=== PATIENT | female | born 1980 | race Two or more races ===

== ENCOUNTER → 2017-11-29 13:52 | Outpatient (CLI) | payer OTHER, SELFPAY ==
--- NOTE | 2017-11-29 13:58 | XR_ITS ---
XR knee LT 3V, XR tibia fibula LT 2V Ordering Physician: Eugenia Das Patient Age: 37 years: Female HISTORY: ITS.REASON: PAIN , S/P FALLpain left knee left lower leg TECHNIQUE: 3 views left knee 2 views lower leg COMPARISON :None ========= LEFT KNEE 3 views. No fracture nor dislocation. The joint space is slightly narrowed at medial compartment on this nonweightbearing film. A generous sized patella but otherwise satisfactory patellofemoral relationships on this view with no prominent joint effusion. Upper normal joint fluid suprapatella bursa. Bones well mineralized. Mild osseous undulation is seen at proximal shaft of the tibia, medial margin. Most likely insertional point. ======= LEFT LOWER LEG 2 views A no acute fracture. Tibia and fibula shaft appear intact. Current AP and lateral views of the lower leg barely included ankle which is unremarkable. Knee included & unremarkable on this study is well. Again the slight undulation cortical contour is seen at the at the medial, and posterior aspect of the proximal tibial shaft. Benign-appearing feature most likely tiny insertional 'tug lesion irregularity or small developing exostosis. Not of current nor significant concern \ ==== IMPRESSION/SUMMARY: 1. Left knee intact no fracture. No significant joint effusion Borderline narrowing medial compartment. 2. Left Tibia and fibula intact with no acute findings. . No significant appearing findings. Note about
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
== END ==
PROVIDERS: PCP Nurse Practitioner Family; Visit Provider Nurse Practitioner Family
DX: M25.552 Pain in left hip (principal); M25.562 Pain in left knee; M79.605 Pain in left leg
CPT/HCPCS: 73502; 73552; 73562; 73590

== ENCOUNTER 2018-01-20 18:05 | Emergency (ER) | payer OTHER, SELFPAY ==
[2018-01-20 18:06] VITALS: BP 128/82; PULSE 89; RESP 18; TEMP 36.6; O2SAT 93; BMI 34.2
--- NOTE | 2018-01-20 18:14 | HMH.EDMVA ---
ED Disposition Clinical Impression: Chest wall contusion, Lumbar strain, UTI (urinary tract infection), Tetrahydrocannabinol (THC) use disorder, mild, abuse, Drug use Disposition: Home, Self-Care Condition on Discharge: Fair Additional Instructions: 1- rest. 2- stop smoking. 3- observe for hemoptysis or soa to return to the Ed for a recheck. 4- motrin and flexeril. 5- folow up with pcp in am on final x ray reports. Prescriptions: Ibuprofen [Motrin 600mg Tablet] 600 mg PO Q8HP PRN #21 tab PRN Reason: Moderate To Severe Pain Amoxicillin [Amoxicillin 500mg Cap] 500 mg PO TID #21 cap Cyclobenzaprine HCl [Flexeril 10mg tablet] 10 mg PO BID 30 Days #60 tab Referrals: Ranjan Maldonado MD [Primary Care Provider] - - Critical Care Critical Care Time: No Attestation: On , the high probability of a clinically significant, sudden or life threatening deterioration of the following system(s) required my full and direct attention, intervention and personal management. The time I documented below is in addition to time spent performing reported procedures but includes the following listed in this critical care notation. Medical Decision Making Vital Signs: 01/20/18 18:06 Temperature 97.9 F Temperature Source Oral Pulse Rate [Right Brachial] 89 Respiratory Rate 18 Blood Pressure [Right Arm] 128/82 Blood Pressure Mean [Right Arm] 97 Blood Pressure Source [Right Arm] Automatic Cuff Blood Pressure Position [Right Arm] Supine 02 Sat by Pulse Oximetry 93 L Oxygen Delivery Method Room Air - Lab Data Lab Results 01/20/18 19:02: Urine Color Yellow, Urine Appearance Cloudy, Urine pH 5.5, Ur Specific [place] 1.015, Urine Protein Negative, Urine Glucose (UA) Negative, Urine Ketones Negative, Urine Blood Trace-l, Urine Nitrate Negative, Urine Bilirubin Negative, Urine Urobilinogen 0.2, Ur Leukocyte Esterase 1+ A, Urine RBC 3-5, Urine WBC 3-5, Ur Squamous Epith Cells 50-100, Urine Bacteria 1+ 01/20/18 19:02: Urine Opiates Screen Negative, Ur Barbituates Screen Negative, Ur Phencyclidine Scrn Negative, Ur Amphetamines Screen Negative, U Methamphetamines Scrn Negative, U Benzodiazepines Scrn Positive H, Urine Cocaine Screen Negative, U Marijuana (THC) Screen Positive H 01/20/18 19:20: WBC 13.1 H, RBC 5.01, Hgb 15.5, Hct 48.1 H, MCV 96.1, MCH 31.0, MCHC 32.2, RDW 12.8, Plt Count 300, MPV 9.2, Neut % (Auto) 71.6, Lymph % (Auto) 21.4, [place] % (Auto) 4.6, Eos % (Auto) 2.2, Baso % (Auto) 0.3, Neut # (Auto) 9.4 H, Lymph # (Auto) 2.8, [place] # (Auto) 0.6, Eos # (Auto) 0.3, Baso # (Auto) 0.0 01/20/18 19:20: Sodium 140, Potassium 3.9, Chloride 104, Carbon Dioxide 27, Anion Gap 12.9, BUN 10, Creatinine 0.80, Estimated Creat Clear 145, Estimated GFR 80, Est GFR ( Amer) 97, Glucose 99, Calcium 8.7, Total Bilirubin 0.5, AST 10 L, ALT 26, Alkaline Phosphatase 82, Total Creatine Kinase 73, CK-MB (CK-2) < 0.5, CK-MB (CK-2) Rel Index 0.7, Troponin I < 0.02, Total Protein 8.0, Albumin 3.8, Globulin 4.2 H, Albumin/Globulin Ratio 0.9 L Result diagrams: 01/20/18 19:20 01/20/18 19:20 Orders (Tests/Meds): ORDERS Category Date Time Status Lumbar spine minimum 4 views [XR lumbar spine min 4V] Exams 01/20/18 18:18 Taken Stat XR cervical spine 5V Stat Exams 01/20/18 18:18 Taken XR chest 2V Stat Exams 01/20/18 18:18 Taken Urine Culture Stat Micro 01/20/18 19:02 Received ECG Request by /Audrey Stat Y 01/20/18 18:18 Ordered - Radiology Data #1 Image(s): Chest, C-Spine, L-Spine Image Reviewed: Yes I reviewed the patient's radiology image Preliminary Findings: Normal/NAD Chest x-ray: Chest x-ray: No pneumohydrothorax, chronic changes stable from 2017 x-ray, no acute findings. Cervical spine x-ray: No fracture or subluxation. Lumbar x-ray: No fracture or subluxation. - ECG Data Tracing #1 Normal sinus rhythm 90/min baseline artifact nonspecific ST and T-wave changes no acute finding. ECG in
--- NOTE | 2018-01-20 18:17 | ED_ITS ---
ED Disposition Clinical Impression: Chest wall contusion, Lumbar strain, UTI (urinary tract infection), Tetrahydrocannabinol (THC) use disorder, mild, abuse, Drug use Disposition: Home, Self-Care Condition on Discharge: Fair Additional Instructions: 1- rest. 2- stop smoking. 3- observe for hemoptysis or soa to return to the Ed for a recheck. 4- motrin and flexeril. 5- folow up with pcp in am on final x ray reports. Prescriptions: Ibuprofen [Motrin 600mg Tablet] 600 mg PO Q8HP PRN #21 tab PRN Reason: Moderate To Severe Pain Amoxicillin [Amoxicillin 500mg Cap] 500 mg PO TID #21 cap Cyclobenzaprine HCl [Flexeril 10mg tablet] 10 mg PO BID 30 Days #60 tab Referrals: Ranjan Maldonado MD [Primary Care Provider] - - Critical Care Critical Care Time: No Attestation: On , the high probability of a clinically significant, sudden or life threatening deterioration of the following system(s) required my full and direct attention, intervention and personal management. The time I documented below is in addition to time spent performing reported procedures but includes the following listed in this critical care notation. Medical Decision Making Vital Signs: 01/20/18 18:06 Temperature 97.9 F Temperature Source Oral Pulse Rate [Right Brachial] 89 Respiratory Rate 18 Blood Pressure [Right Arm] 128/82 Blood Pressure Mean [Right Arm] 97 Blood Pressure Source [Right Arm] Automatic Cuff Blood Pressure Position [Right Arm] Supine 02 Sat by Pulse Oximetry 93 L Oxygen Delivery Method Room Air - Lab Data Lab Results 01/20/18 19:02: Urine Color Yellow, Urine Appearance Cloudy, Urine pH 5.5, Ur Specific [place] 1.015, Urine Protein Negative, Urine Glucose (UA) Negative, Urine Ketones Negative, Urine Blood Trace-l, Urine Nitrate Negative, Urine Bilirubin Negative, Urine Urobilinogen 0.2, Ur Leukocyte Esterase 1+ A, Urine RBC 3-5, Urine WBC 3-5, Ur Squamous Epith Cells 50-100, Urine Bacteria 1+ 01/20/18 19:02: Urine Opiates Screen Negative, Ur Barbituates Screen Negative, Ur Phencyclidine Scrn Negative, Ur Amphetamines Screen Negative, U Methamphetamines Scrn Negative, U Benzodiazepines Scrn Positive H, Urine Cocaine Screen Negative, U Marijuana (THC) Screen Positive H 01/20/18 19:20: WBC 13.1 H, RBC 5.01, Hgb 15.5, Hct 48.1 H, MCV 96.1, MCH 31.0, MCHC 32.2, RDW 12.8, Plt Count 300, MPV 9.2, Neut % (Auto) 71.6, Lymph % (Auto) 21.4, [place] % (Auto) 4.6, Eos % (Auto) 2.2, Baso % (Auto) 0.3, Neut # (Auto) 9.4 H, Lymph # (Auto) 2.8, [place] # (Auto) 0.6, Eos # (Auto) 0.3, Baso # (Auto) 0.0 01/20/18 19:20: Sodium 140, Potassium 3.9, Chloride 104, Carbon Dioxide 27, Anion Gap 12.9, BUN 10, Creatinine 0.80, Estimated Creat Clear 145, Estimated GFR 80, Est GFR ( Amer) 97, Glucose 99, Calcium 8.7, Total Bilirubin 0.5 , AST 10 L, ALT 26, Alkaline Phosphatase 82, Total Creatine Kinase 73, CK-MB (CK -2) < 0.5, CK-MB (CK-2) Rel Index 0.7, Troponin I < 0.02, Total Protein 8.0, Albumin 3.8, Globulin 4.2 H, Albumin/Globulin Ratio 0.9 L Result diagrams: 01/20/18 19:20 01/20/18 19:20 Orders (Tests/Meds): ORDERS Category Date Time Status Lumbar spine minimum 4 views [XR lumbar spine min 4V] Exams 01/20/18 18:18 Taken Stat XR cervical spine 5V Stat Exams 01/20/18 18:18 Taken XR chest 2V Stat Exams 01/20/18 18:18 Taken Urine Culture Stat Micro 01/20/18 19:02 Received ECG Request by /Audrey Stat Y 01/20/18 18:
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
[2018-01-20 19:32] LABS: Basophils % 0.3 % (0.1-2.0); Eosinophils # 0.3 K/mm3 (0.0-0.4); Eosinophils % 2.2 % (0.1-12.0); Hematocrit 48.1 % (37.0-47.0); Hemoglobin 15.5 g/dL (12.2-16.2); Lymphocytes # 2.8 K/mm3 (0.7-4.5); Lymphocytes % 21.4 K/mm3 (10-50); Mean Corpuscular HGB Conc 32.2 g/dL (31.8-35.4); Mean Corpuscular Volume 96.1 fl (81-99); Mean Platelet Volume 9.2 fl (7.4-10.4); Monocytes # 0.6 K/mm3 (0.1-1.0); Monocytes % 4.6 % (1.7-9.3); Neutrophils # 9.4 K/mm3 (1.8-7.8); Neutrophils % 71.6 % (37.0-80.0); Platelet Count 300 K/mm3 (142-424); Red Blood Count 5.01 M/mm3 (4.20-5.40); Red Cell Distribution Width 12.8 % (11.5-17.5); White Blood Count 13.1 K/mm3 (4.8-10.8)
[2018-01-20 19:33] LABS: Appearance,Urine CLOUDY (Clear); Bilirubin,Urine Negative (Negative); Blood, Urine TRACE-L (Negative); Color,Urine YELLOW (Yellow); Glucose,Urine (UA) Negative (Negative); Ketones,Urine Negative (Negative); Leukocyte Esterase,Urine 1+ (Negative); Microscopic, Urine URINE MICROSCOPIC (MICROSCOPIC); Nitrate,Urine Negative (Negative); PH,Urine 5.5 (5.0-8.5); Protein,Urine Negative (Negative); Specific Gravity, Urine 1.015 (1.005-1.030); Urobilinogen,Urine 0.2 EU/dl (0.2)
[2018-01-20 19:38] LABS: Bacteria,Urine 1+ /lpf; Squamous Epithelial Cell,Urine 50-100 #/hpf (0-5)
[2018-01-20 19:49] LABS: Amphetamine/Metha Screen,Urine Negative ng/mL (<1000); Barbiturates Screen,Urine Negative ng/mL (<200); Benzodiazepines Screen,Urine Positive ng/mL (200); Cannabinoid Screen,Urine Positive ng/mL (<50); Cocaine Screen,Urine Negative ng/g (<300); Methadone Screen,Urine Negative ng/mL (<300); Opiate Screen,Urine Negative ng/mL (<300); Phencyclidine Screen,Urine Negative ng/mL (<25)
[2018-01-20 19:57] LABS: Alanine Aminotransferase 26 U/L (12-78); Albumin Level 3.8 gm/dL (3.4-5.0); Albumin/Globulin Ratio 0.9 (1.1-1.8); Alkaline Phosphatase 82 U/L (46-116); Anion Gap 12.9 mEq/L (5-15); Aspartate Amino Transferase 10 U/L (15-37); Bilirubin,Total 0.5 mg/dL (0.2-1.0); Calcium 8.7 mg/dL (8.5-10.1); Carbon Dioxide 27 mmol/L (21.0-32.0); Chloride 104 mmol/L (98-107); Creatine Kinase 73 U/L (26-192); Creatinine Clearance Estimated 145 mL/min (0-300); Estimated Glomerular Filt Rate 80 ml/min (>60); GFR (African American) 97 ML/MIN (>60); Globulin 4.2 gm/dl (1.3-3.2); Glucose 99 mg/dL (74-106); Potassium 3.9 mmoL/L (3.5-5.1); Sodium 140 mmol/L (136-145); Troponin I < 0.02 ng/ml (0.00-0.06)
[2018-01-20 20:03] LABS: Blood Urea Nitrogen 10 mg/dL (7-18)
[2018-01-20 20:05] LABS: CKMB Relative Index 0.7 U/L (0-4.0); Creatine Kinase MB < 0.5 mg/ml (0.0-3.6)
[2018-01-20 20:19] VITALS: BP 138/78; PULSE 92; RESP 18; TEMP 36.4
== END 2018-01-20 20:20 | disposition home or self-care (01) ==
PROVIDERS: Emergency Provider Emergency Medicine; PCP Internal Medicine Cardiovascular Disease
DX: S20.212A Contusion of left front wall of thorax, initial encounter (principal); S20.211A Contusion of right front wall of thorax, initial encounter; V43.62XA Car passenger injured in collision with other type car in traffic accident, initial encounter; Y92.488 Other paved roadways as the place of occurrence of the external cause; F12.10 Cannabis abuse, uncomplicated
CPT/HCPCS: 71046; 72050; 72110; 80053; 80305; 81001; 82550; 82553; 84484; 85025; 87086; 93005; 93041; 99283

== ENCOUNTER → 2018-06-12 10:21 | Outpatient (CLI) | payer OTHER, SELFPAY ==
[2018-06-12 10:56] LABS: Basophils % 0.5 % (0.1-2.0); Eosinophils # 0.2 K/mm3 (0.0-0.4); Eosinophils % 1.8 % (0.1-12.0); Hematocrit 48.7 % (37.0-47.0); Hemoglobin 15.9 g/dL (12.2-16.2); Lymphocytes # 2.2 K/mm3 (0.7-4.5); Lymphocytes % 22.7 K/mm3 (10-50); Mean Corpuscular HGB Conc 32.7 g/dL (31.8-35.4); Mean Corpuscular Hemoglobin 31.1 pg (27.0-31.2); Mean Platelet Volume 8.9 fl (7.4-10.4); Monocytes # 0.5 K/mm3 (0.1-1.0); Monocytes % 5.1 % (1.7-9.3); Neutrophils # 6.7 K/mm3 (1.8-7.8); Neutrophils % 69.9 % (37.0-80.0); Platelet Count 296 K/mm3 (142-424); Red Blood Count 5.13 M/mm3 (4.20-5.40); White Blood Count 9.6 K/mm3 (4.8-10.8)
[2018-06-12 11:32] LABS: Alanine Aminotransferase 22 U/L (12-78); Albumin Level 3.8 gm/dL (3.4-5.0); Alkaline Phosphatase 79 U/L (46-116); Anion Gap 10.7 mEq/L (5-15); Aspartate Amino Transferase 10 U/L (15-37); Bilirubin,Total 0.3 mg/dL (0.2-1.0); Blood Urea Nitrogen 6 mg/dL (7-18); Calcium 9.6 mg/dL (8.5-10.1); Carbon Dioxide 30 mmol/L (21.0-32.0); Chloride 106 mmol/L (98-107); Creatinine,Serum 0.71 mg/dL (0.55-1.02); Estimated Glomerular Filt Rate 92 ml/min (>60); GFR (African American) 111 ML/MIN (>60); Glucose 95 mg/dL (74-106); Potassium 4.7 mmoL/L (3.5-5.1); Sodium 142 mmol/L (136-145)
[2018-06-12 11:42] LABS: Albumin/Globulin Ratio 0.9 (1.1-1.8); Globulin 4.1 gm/dl (1.3-3.2); Total Protein,Serum 7.9 gm/dL (6.4-8.2)
== END ==
PROVIDERS: Visit Provider Physician Assistant
DX: I10 Essential (primary) hypertension (principal)
CPT/HCPCS: 36415; 80053; 85025

== ENCOUNTER → 2019-12-20 12:33 | Outpatient (CLI) | payer OTHER, SELFPAY ==
--- NOTE | 2019-12-20 12:33 | CA_ITS ---
APPROVED REPORT EXAM: Comprehensive 2D, Doppler, and color-flow Echocardiogram Lens Fabricating Machine Tender: Juliana Fenton CRT Ht: 5 ft 7 in Wt: 226lbs BSA: 2.13 BP: 165/108 mmHg Indications: Chest Pain, Shortness of Breath, Obesity, Dyspnea, Hypertension/HDD, SMOKER, EDEMA 2D Dimensions LVOT 1.78 cm (M/F) 1.5-2.5 M-Mode Dimensions RVDd 2.42 cm (0.9-2.6) LVDd 5.33 cm (3.5-5.7) LVDs 3.59 cm (3.5-5.7) IVSd 1.29 cm (0.6-1.1) PWd 0.76 cm (0.6-1.1) EF (Teich) 60.50% FS 32.60% EDV (Teich) 137.10 mL ESV (Teich) 54.10 mL LV Diastology E/A Ratio 1.42 Mitral Valve MV A Velocity 54.00 (40-130 cm/s) Left Ventricle Left atrium is normal size, left ventricle is normal size preserved left ventricular systolic function, visually estimated ejection fraction 55% with no regional wall motion abnormality, diastolic parameters are within normal range. Right Ventricle Right atrium and right ventricular normal size and contractility. Aortic Valve Aortic valve is minimally thickened and fibrosed. There is no aortic stenosis aortic insufficiency. Mitral Valve Mitral valve is grossly normal, there is mild mitral regurgitation. Tricuspid Valve Tricuspid valve is grossly normal, there is mild tricuspid regurgitation. Tricuspid regurgitation jet velocity is inadequate for calculation of the right ventricular systolic pressure. Pulmonic Valve Pulmonic valve is poorly visualized. Great Vessels Aortic root is normal size. Pericardium No significant pericardial effusion noted. Conclusion 1. Technically very difficult study because of the patient fact in poor acoustic windows 2. Normal left ventricular size, preserved left ventricular systolic function, visually estimated ejection fraction 55% with no regional wall motion abnormality, diastolic parameters are within normal range. 3. Mild mitral and tricuspid regurgitation. 4. No significant pericardial effusion noted. Electronically signed by : Ranjan Maldonado, 12/20/2019 15:52:39
== END ==
PROVIDERS: PCP Nurse Practitioner Family; Visit Provider Nurse Practitioner Family
DX: I10 Essential (primary) hypertension (principal); R06.02 Shortness of breath; R07.9 Chest pain, unspecified
CPT/HCPCS: 93306

== ENCOUNTER 2020-08-18 17:17 | Emergency (ER) | payer OTHER, SELFPAY ==
[2020-08-18 17:55] VITALS: BP 115/73; PULSE 101; RESP 20; TEMP 36.8; O2SAT 97; BMI 36.6
--- NOTE | 2020-08-18 18:28 | HMH.EDUTC ---
[facility] [place] Clinical Impression: Viral upper respiratory infection Disposition: Home, Self-Care Condition on Discharge: Good Instructions: Sore Throat, DI for Nasal Congestion Additional Instructions: *Monitor Temp, Over the counter Motrin or Tylenol as directed/as needed Tylenol every 4 hours and Motrin every 6 hours (as long as your family doctor has told you that you can take it) for fever or pain. and straight to ER if unable to lower temp less than 101.0 after medication given *Warm salt water gargles may help to soothe the throat *Throat Lozenges *Warm fluids like tea with honey may help to soothe the throat *Sleep elevated *Humidifier/Vaporizer *Flonase 2 sprays in each nostril daily but be aware that it may take 2-3 days before you notice improvement Your throat swab was sent for culture. Those results are typically sent to your primary care. Be sure to follow up in 2-3 days with your family doctor/primary care physician if no improvement so they can review those result and treat if necessary. If you don?t have a primary care doctor, I recommend you get one but in the mean time, you will have to return to a walk in clinic Follow up IMMEDIATELY for new or worsening symptoms or no Noticeable improvement over the next 48-72 hours. 911 for difficulty breathing or swallowing Prescriptions: Fluticasone Propionate [Flonase 50mcg nasal spray 16gm] 1 - 2 spr NS DAILY #1 bottle Transmission Status: Pending to [facility] Referrals: Rudy Roy [Primary Care Provider] - As needed Forms: Work/School Release Time of Disposition: 18:34 Medical Decision Making - Christian Inquiry Pt receiving controlled substance: No Christian was queried for this patient: No Vital Signs: 08/18/20 17:55 Temperature 98.2 F Temperature Source Oral Pulse Rate [Right Brachial] 101 H Respiratory Rate 20 Blood Pressure [Right Arm] 115/73 Blood Pressure Mean [Right Arm] 87 Blood Pressure Source [Right Arm] Automatic Cuff Blood Pressure Position [Right Arm] Sitting 02 Sat by Pulse Oximetry 97 Oxygen Delivery Method Room Air - Lab Data Lab results reviewed: Yes: I reviewed the patient's lab results. [facility] [place] - General Stated complaint: Sore throat, cough Time Seen by Provider: 08/18/20 18:28 Mode of Arrival: Ambulatory Source of Information: Patient Limitations: No Limitations Description of Symptoms (Recalled from Triage Doc. by RN): PATIENT C/O SORE THROAT, HEADACHE, AND SINUS PRESSURE SINCE THIS MORNING HEENT Symptoms (Recalled from RN notes): Yes Resp Symptoms (Recalled from RN notes): No Skin Symptoms (Recalled from RN notes): No MS Symptoms (Recalled from RN notes): No Functional Status (Recalled from RN notes): WNL - History of Present Illness Provider Complaint: Patient states that she has been been having sore throat, nasal congestion and headache for the last couple of days States that she is blowing clear mucous from her nose States that she was worried that she may have strep throat so she come in to get checked - Related Data Home Medications Medication Instructions Recorded Confirmed albuterol sulfate 90 mcg/actuation 2 puff INHALATION Q4-6H PRN g 01/03/18 01/15/20 aerosol inhaler metoprolol succinate 25 mg 25 mg PO DAILY tab 12/16/19 01/15/20 tablet,extended release 24 hr atorvastatin 20 mg tablet 20 mg PO DAILY tab 12/31/19 01/15/20 bupropion HCl 150 mg tablet,12 hr 150 mg PO BID each 12/31/19 01/15/20 sustained-release nicotine (polacrilex) 2 mg buccal mg BUCCAL 01/15/20 01/15/20 lozenge Previous Rx's Medication Instructions Recorded amoxicillin 500 mg capsule 500 mg PO Q12H 10 Days #20 cap 01/15/20 ondansetron 4 mg disintegrating 4 mg PO Q6H PRN 3 Days #12 tab 01/15/20 tablet hydrochlorothiazide 12.5 mg tablet 12.5 mg PO DAILY #30 tab 05/05/20 losartan 100 mg tablet 100 mg PO DAILY #30 tab 05/05/20 Fluticasone Propionate [Flonase 1 - 2 spr NS DAILY #1 bottle
[2020-08-18 18:37] VITALS: BP 115/73; PULSE 101; RESP 20; TEMP 36.8; O2SAT 97
[2020-08-18 20:05] LABS: UTC Strep Screen (Rapid) Negative (Negative)
== END 2020-08-18 18:41 | disposition home or self-care (01) ==
PROVIDERS: Emergency Provider Nurse Practitioner; PCP Family Medicine
DX: J06.9 Acute upper respiratory infection, unspecified (principal); F41.8 Other specified anxiety disorders; E78.5 Hyperlipidemia, unspecified; I10 Essential (primary) hypertension; F17.210 Nicotine dependence, cigarettes, uncomplicated; Z79.899 Other long term (current) drug therapy
CPT/HCPCS: 87880; 99201

== ENCOUNTER 2020-09-01 11:01 | Emergency (ER) | payer OTHER, SELFPAY ==
[2020-09-01 11:10] VITALS: BMI 33.0
--- NOTE | 2020-09-01 11:10 | XR_ITS ---
PROCEDURE: XR ANKLE RT MIN 3V CLINICAL INDICATION: INJURY Pain COMPARISON: No exams were available for comparison FINDINGS: IMPRESSION: No acute findings. Dictated by: Cristopher Walker MD 09/01/2020 12:28 Cristopher Walker MD in [place] 09/01/2020 12:28
[2020-09-01 11:11] VITALS: BP 145/88; PULSE 85; RESP 20; TEMP 36.8; O2SAT 96; BMI 33.0
--- NOTE | 2020-09-01 11:19 | HMH.EDUTC ---
[facility] [place] Disposition Clinical Impression: Contusion, ankle Qualifiers: Encounter type: initial encounter Laterality: right Qualified Code(s): S90.01XA - Contusion of right ankle, initial encounter Disposition: Home, Self-Care Condition on Discharge: Good Instructions: How To Perform RICE (Rest, Ice, Compress, Elevate) Additional Instructions: Use crutches to ambulate *RICE, Rest the extremity, Ice 15-20 minutes 3-4 times daily, Compress- wear the abe wrap as discussed as much as possible to help reduce swelling and pain, Elevate the extremity when at rest *Abe wrap is for support and help control swelling, use it except in the shower. Be sure that is not to tight but not to loose either *Elevate when resting *Ibuprofen every 6-8 hours as needed for pain an inflammation. If need something more can take Tylenol in between doses of Ibuprofen to help Call back to the [facility] later today to see if the Radiologist has read your xray and what the results is Follow up with Family Doctor if no improvement or any worsening of symptoms Return if needed Straight to ER if any life threatening symptoms Referrals: Rudy Roy [Primary Care Provider] - As needed Genevieve Antonio DPM [Staff Physician] - Forms: Work/School Release Time of Disposition: 12:35 Medical Decision Making - Christian Inquiry Pt receiving controlled substance: No Christian was queried for this patient: No Vital Signs: 09/01/20 11:11 Temperature 98.2 F Temperature Source Oral Pulse Rate [Right Brachial] 85 Respiratory Rate 20 Blood Pressure [Right Arm] 145/88 H Blood Pressure Mean [Right Arm] 107 Blood Pressure Source [Right Arm] Automatic Cuff Blood Pressure Position [Right Arm] Sitting 02 Sat by Pulse Oximetry 96 Oxygen Delivery Method Room Air - Lab Data Lab Results 09/01/20 11:41: Uric Acid 5.3 - Radiology Data #1 Image(s): Ankle Image Reviewed: Yes I reviewed the patient's radiology image Preliminary Findings: No Fracture Seen Medical Decision Narrative: Patient sitting in wheel chair no distress awaiting uric acid lab test results [facility] [place] HPI - General Stated complaint: AO 08/31/20 rt ankle pain Time Seen by Provider: 09/01/20 11:19 Mode of Arrival: Ambulatory Source of Information: Patient Limitations: No Limitations Description of Symptoms (Recalled from Triage Doc. by RN): PATIENT STATES SHE WAS AT WORK LAST NIGHT AND THINKS SHE MAY HAVE HIT HER ANKLE ON SOMETHING; C/O SWELLING AND PAIN TO RIGHT ANKLE HEENT Symptoms (Recalled from RN notes): No Resp Symptoms (Recalled from RN notes): No Skin Symptoms (Recalled from RN notes): No MS Symptoms (Recalled from RN notes): Yes Functional Status (Recalled from RN notes): WNL - History of Present Illness Provider Complaint: Patient states that she was at work last night and there was a small box sitting there and she felt a sharp pain in her right ankle and it was red Thinks she hit her ankle against the side of the box States that she got home and took off her shoes and socks and noticed it started swelling and hurt when she would walk on it so she came in today to get it checked - Related Data Home Medications Medication Instructions Recorded Confirmed albuterol sulfate 90 mcg/actuation 2 puff INHALATION Q4-6H PRN g 01/03/18 01/15/20 aerosol inhaler metoprolol succinate 25 mg 25 mg PO DAILY tab 12/16/19 09/01/20 tablet,extended release 24 hr atorvastatin 20 mg tablet 20 mg PO DAILY tab 12/31/19 09/01/20 bupropion HCl 150 mg tablet,12 hr 150 mg PO BID each 12/31/19 09/01/20 sustained-release Fluticasone Propionate [Flonase 1 - 2 spr NS DAILY 09/01/20 09/01/20 50mcg nasal spray 16gm] Losartan Potassium [Cozaar 100mg 100 mg PO DAILY 09/01/20 09/01/20 Tablets] hydroCHLOROthiazide 12.5 mg PO DAILY 09/01/20 09/01/20 [Hydrochlorothiazide 12.5mg Tab] Previous Rx's Medication Instructions Recorded amoxicillin 500 mg capsule 500 mg PO Q12H 10 Days #20 cap 01/15/20
[2020-09-01 12:06] LABS: Uric Acid 5.3 mg/dl (2.5-6.2)
[2020-09-01 12:36] VITALS: BP 145/88; PULSE 85; RESP 20; TEMP 36.8; O2SAT 96
== END 2020-09-01 12:45 | disposition home or self-care (01) ==
PROVIDERS: Emergency Provider Nurse Practitioner; PCP Family Medicine
DX: S90.01XA Contusion of right ankle, initial encounter (principal); W22.09XA Striking against other stationary object, initial encounter; Y92.69 Other specified industrial and construction area as the place of occurrence of the external cause; Y99.0 Civilian activity done for income or pay
CPT/HCPCS: 29515; 73610; 84550; 99202

== ENCOUNTER 2020-10-09 06:32 | Emergency (ER) | payer OTHER, SELFPAY ==
[2020-10-09] VITALS (7 sets, daily range): BP systolic 144–192; BP diastolic 81–113; PULSE 72–92; RESP 16–21; TEMP 36.3–36.9; O2SAT 94–98; BMI 32.3; BMI 39.4
--- NOTE | 2020-10-09 06:52 | CT_ITS ---
PROCEDURE: CT ABDOMEN PELVIS W CON CLINICAL INDICATION: abd pain , Abdominal cramping for 2 days COMPARISON: CT CT ABDOMEN PELVIS W CON from 07/13/2019 TECHNIQUE: IV Contrast: 75ML OPTIRAY 350 Oral Contrast none given Axial images obtained with sagittal and coronal reformats. All CT scans at the facility use one or more dose reduction, viz: automated exposure control, ma/kV adjustment per patient size (including targeted exams where dose is matched to indication, i.e. head), or iterative reconstruction technique. FINDINGS: Lower thorax: The lower lung lopez are clear and there is no pleural fluid. Cardiac size is normal. ABDOMEN: Liver: No masses or biliary dilatation. Gallbladder: Post cholecystectomy Pancreas: No masses or peripancreatic fluid collections. Spleen: unremarkable Adrenals: unremarkable Kidneys/ureters: The kidneys are normal size and show symmetrical function both appearing normal. ABDOMEN & PELVIS: Stomach bowel: There is a small sliding hiatal hernia. The stomach is otherwise unremarkable except for a couple of high density foci in the antrum of the stomach possibly ingested antacids. There are multiple mildly dilated fluid-filled loops of small bowel with slightly accentuation of the folds. There is mild diffuse wall thickening of the ascending and transverse colon. Findings are similar to the previous CT abdomen pelvis exam 07/13/2019 but small bowel dilatation is somewhat more prominent on today's exam. The appendix appears normal and there are no pericecal inflammatory changes. Peritoneum: No abnormal fluid collections. No obvious inflammatory changes. No free air. Lymph nodes: No enlarged lymph nodes apparent. Vasculature: No evidence of abdominal aortic aneurysm. No retroperitoneal hemorrhage evident. Bones: No acute fracture PELVIS: Reproductive: The uterus is normal in size and in the midline. There is metallic density to the left uterus likely a tubal ligation clip and this was seen previously. There is a small left ovarian cyst and this was noted previously as well. Bladder: Urinary bladder is decompressed, there is no free fluid in the pelvis. Appendix: Unremarkable. No distention or periappendiceal phlegmonous change. IMPRESSION: Findings most consistent with enterocolitis with more prominent fluid-filled dilated small bowel loops than seen on the previous exam. Small sliding hiatal hernia is noted Dictated by: Dr. Jose Alfredo Zhang MD 10/09/2020 07:51 Dr. Jose Alfredo Zhang MD in [place] 10/09/2020 07:51
--- NOTE | 2020-10-09 06:56 | HMH.EDNVD ---
ED Disposition Clinical Impression: Colitis, SIRS (systemic inflammatory response syndrome), Obesity (BMI 30-39.9) Disposition: Home, Self-Care Condition on Discharge: Good Instructions: DI for Colitis Additional Instructions: fluids and use meds and see pcp monday at 10 am Prescriptions: Dicyclomine HCl [Bentyl 10mg capsule] 10 mg PO TID #15 cap Transmission Status: Pending to [facility] levoFLOXacin [Levaquin 500mg tab] 500 mg PO DAILY #7 tab Transmission Status: Pending to [facility] Referrals: Rudy Roy [Primary Care Provider] - - Critical Care Critical Care Time: No Attestation: On 10/09/20, the high probability of a clinically significant, sudden or life threatening deterioration of the following system(s) required my full and direct attention, intervention and personal management. The time I documented below is in addition to time spent performing reported procedures but includes the following listed in this critical care notation. Medical Decision Making - Medical Records Medical records reviewed: Yes: I reviewed the patient's medical records. - Christian Inquiry Pt receiving controlled substance: No Vital Signs: 10/09/20 06:34 10/09/20 07:00 10/09/20 07:30 Temperature 98.5 F Temperature Source Oral Pulse Rate [Left Radial] 92 H 74 75 Respiratory Rate 21 17 20 Blood Pressure [Right Arm] 192/113 H 144/93 H 155/81 H Blood Pressure Mean [Right Arm] 139 110 105 Blood Pressure Source [Right Arm] Automatic Cuff Automatic Cuff Automatic Cuff Blood Pressure Position [Right Arm] Supine Supine Sitting 02 Sat by Pulse Oximetry 97 95 94 L Oxygen Delivery Method Room Air Room Air Room Air 10/09/20 08:00 10/09/20 08:30 Temperature Temperature Source Pulse Rate [Left Radial] 75 72 Respiratory Rate 20 20 Blood Pressure [Right Arm] 156/105 H 156/87 H Blood Pressure Mean [Right Arm] 122 110 Blood Pressure Source [Right Arm] Automatic Cuff Automatic Cuff Blood Pressure Position [Right Arm] Sitting 02 Sat by Pulse Oximetry 96 96 Oxygen Delivery Method Room Air - Lab Data Lab results reviewed: Yes: I reviewed the patient's lab results. Lab Results 10/09/20 06:40: Urine Color Yellow, Urine Appearance Clear, Urine pH 5.0, Ur Specific [place] >= 1.030, Urine Protein Negative, Urine Glucose (UA) Negative, Urine Ketones Negative, Urine Blood Trace-l, Urine Nitrate Negative, Urine Bilirubin Negative, Urine Urobilinogen 0.2, Ur Leukocyte Esterase Negative, Urine RBC 3-5, Urine WBC Occasional, Ur Squamous Epith Cells 5-10, Urine Bacteria Trace 10/09/20 06:40: Urine HCG, Qual Negative 10/09/20 06:45: WBC 17.0 H, RBC 5.25, Hgb 16.9 H, Hct 51.4 H, MCV 98.0, MCH 32.2 H, MCHC 32.9, RDW 13.7, Plt Count 374, MPV 9.6, Neut % (Auto) 79.4, Lymph % (Auto) 13.1, [place] % (Auto) 4.4, Eos % (Auto) 2.6, Baso % (Auto) 0.5, Neut # (Auto) 13.5 H, Lymph # (Auto) 2.2, [place] # (Auto) 0.7, Eos # (Auto) 0.4, Baso # (Auto) 0.1, Total Counted 100, Neutrophils % (Manual) 88 H, Lymphocytes % (Manual) 10, Monocytes % (Manual) 2, Platelet Estimate Normal, RBC Morphology Normal 10/09/20 06:45: Sodium 137, Potassium 4.5, Chloride 103, Carbon Dioxide 26, Anion Gap 12.5, BUN 10, Creatinine 0.80, Estimated Creat Clear 154, Estimated GFR 79, Est GFR ( Amer) 96, Glucose 129 H, Calcium 9.4, Total Bilirubin 0.5, AST 35, ALT 29, Alkaline Phosphatase 85, C-Reactive Protein 13.6 H, Total Protein 8.4 H, Albumin 4.5, Globulin 3.9 H, Albumin/Globulin Ratio 1.2, Amylase 48, Lipase 57, Procalcitonin 0.046 10/09/20 06:45: SARS-CoV-2 IgG Ab (Rapid) Negative, SARS-CoV-2 IgM Ab (Rapid) Negative 10/09/20 06:45: ESR 7 Result diagrams: 10/09/20 06:45 11 06:45 Orders (Tests/Meds): ED MEDICATIONS Generic Name Dose Route Start Last Admin Trade Name Freq PRN Reason Stop Dose Admin Levofloxacin/Dextrose 500 mg in 100 mls @ 100 mls/hr 10/09/20 08:30 10/09/20 08:29 Levaquin 500mg/100ml Premix IV
[2020-10-09 06:58] LABS: Basophils # 0.1 K/mm3 (0-0.2); Basophils % 0.5 % (0.1-2.0); Eosinophils # 0.4 K/mm3 (0.0-0.4); Eosinophils % 2.6 % (0.1-12.0); Hematocrit 51.4 % (37.0-47.0); Hemoglobin 16.9 g/dL (12.2-16.2); Lymphocytes # 2.2 K/mm3 (0.7-4.5); Lymphocytes % 13.1 % (10-50); Mean Corpuscular HGB Conc 32.9 g/dL (31.8-35.4); Mean Corpuscular Hemoglobin 32.2 pg (27.0-31.2); Mean Platelet Volume 9.6 fl (7.4-10.4); Monocytes # 0.7 K/mm3 (0.1-1.0); Monocytes % 4.4 % (1.7-9.3); Neutrophils # 13.5 K/mm3 (1.8-7.8); Neutrophils % 79.4 % (37.0-80.0); Platelet Count 374 K/mm3 (142-424); Red Blood Count 5.25 M/mm3 (4.20-5.40); Red Cell Distribution Width 13.7 % (11.5-17.5)
[2020-10-09 07:08] LABS: Chloride 103 mmol/L (98-107); Potassium 4.5 mmoL/L (3.5-5.1); Sodium 137 mmol/L (136-145)
[2020-10-09 07:10] LABS: Amylase 48 U/L (30-110)
[2020-10-09 07:11] LABS: Alanine Aminotransferase 29 U/L (12-78); Albumin Level 4.5 g/dl (3.5-5.0); Albumin/Globulin Ratio 1.2 (1.1-1.8); Alkaline Phosphatase 85 U/L (38-126); Anion Gap 12.5 mEq/L (5-15); Aspartate Amino Transferase 35 U/L (14-36); Bilirubin,Total 0.5 mg/dl (0.2-1.3); Blood Urea Nitrogen 10 mg/dl (7-17); Calcium 9.4 mg/dl (8.4-10.2); Carbon Dioxide 26 mmol/L (22.0-30.0); Creatinine Clearance Estimated 154 mL/min (50-200); Estimated Glomerular Filt Rate 79 ml/min (>60); GFR (African American) 96 ML/MIN (>60); Globulin 3.9 g/dL (1.3-3.2); Glucose 129 mg/dl (74-100); Lipase 57 U/L (23-300); Total Protein,Serum 8.4 g/dl (6.3-8.2)
[2020-10-09 07:15] LABS: MANUAL DIFFERENTIAL MANUAL DIFFERENTIAL (MANUAL DIFF)
[2020-10-09 07:17] LABS: C-Reactive Protein 13.6 mg/L (0-4)
[2020-10-09 07:29] LABS: Microscopic, Urine URINE MICROSCOPIC (MICROSCOPIC)
[2020-10-09 07:39] LABS: Appearance,Urine CLEAR (Clear); Bilirubin,Urine Negative (Negative); Blood, Urine TRACE-L (Negative); Color,Urine YELLOW (Yellow); Glucose,Urine (UA) Negative (Negative); Ketones,Urine Negative (Negative); Leukocyte Esterase,Urine Negative (Negative); Nitrate,Urine Negative (Negative); Protein,Urine Negative (Negative); Specific Gravity, Urine >= 1.030 (1.005-1.030); Urobilinogen,Urine 0.2 EU/dl (0.2)
[2020-10-09 07:42] LABS: Urine Pregnancy, HCG Qual. Negative (Negative)
[2020-10-09 07:43] LABS: Coronavirus 19 IgG Antibody Negative (Negative); Coronavirus 19 IgM Antibody Negative (Negative)
[2020-10-09 07:49] LABS: Erythrocyte Sedimentation Rate 7 mm/hr (0-20)
[2020-10-09 07:52] LABS: Lymphocytes % 10 % (10-50); Monocytes % 2 % (2-9); Neutrophils % 88 % (42-76); Platelet Estimate Normal; Total Cells Counted 100
[2020-10-09 07:53] LABS: RBC Morphology Normal
[2020-10-09 08:04] LABS: Bacteria,Urine Trace /lpf; WBC,Urine Occasional #/hpf (0-3)
[2020-10-09 08:12] LABS: Procalcitonin 0.046 ng/mL (0.0-2.0)
== END 2020-10-09 09:34 | disposition home or self-care (01) ==
PROVIDERS: Emergency Provider Emergency Medicine; PCP Family Medicine
DX: K52.9 Noninfective gastroenteritis and colitis, unspecified (principal); R65.11 Systemic inflammatory response syndrome (SIRS) of non-infectious origin with acute organ dysfunction; Z01.84 Encounter for antibody response examination; F41.8 Other specified anxiety disorders; E78.5 Hyperlipidemia, unspecified; I10 Essential (primary) hypertension; F17.210 Nicotine dependence, cigarettes, uncomplicated; Z79.899 Other long term (current) drug therapy
CPT/HCPCS: 74177; 80053; 81001; 81025; 82150; 83690; 84145; 85007; 85025; 85651; 86140; 86328; 96365; 96367; 96375; 96376; 99284; J1956; J2405; Q9967

== ENCOUNTER → 2020-12-02 10:14 | Outpatient (CLI) | payer OTHER, SELFPAY ==
[2020-12-02 12:24] LABS: HCG Qualitative, Serum Negative (Negative)
[2020-12-02 12:31] LABS: Coronavirus 19 IgG Antibody Negative (Negative); Coronavirus 19 IgM Antibody Negative (Negative)
== END ==
PROVIDERS: Visit Provider Internal Medicine Gastroenterology
DX: Z01.812 Encounter for preprocedural laboratory examination (principal); Z11.52 Encounter for screening for COVID-19; Z13.810 Encounter for screening for upper gastrointestinal disorder
CPT/HCPCS: 36415; 84703; 86328

== ENCOUNTER 2020-12-04 07:58 | Day surgery (SDC) | payer OTHER, SELFPAY ==
[2020-12-01 11:03] VITALS: BMI 36.4
[2020-12-04] VITALS (7 sets, daily range): BP systolic 118–144; BP diastolic 48–88; PULSE 61–105; RESP 18; TEMP 36.3–36.7; O2SAT 87–97
--- NOTE | 2020-12-04 09:03 | P.PN_ITS ---
[facility] Anesthesia Checklist - Patient Identification Patient Identification: Arm Band - Structural Data Admitted From: Home Planned Operative Procedure/s: egd Consent for Planned Operative Procedure(s) Verified: Yes Verified Documents: Surgical Consent, History and Physical - NPO Status Verified Time NPO: 00:00 - Additional verifications Anesthesia Reactions: No - Airway Assessment C-Spine Mobility Assessed: Yes (mp2) TMJ Mobility Assessed: Yes Dentition: Good Dentition (dentures removed) - Neurological Assessment Level of Consciousness: Awake, Alert - Anesthesia Plan Anesthesia Risk discussed: Yes Anesthesia Plan: Verified ASA Class: III Anesthesia Type: MAC [facility] History I have reviewed the patient's past medical history: Yes Medical History: Reports:: Anxiety, Asthma, Chronic Obstructive Pulmonary Disease (COPD), Depression, Hyperlipidemia, Hypertension Denies:: Cancer, Diabetes Mellitus Type 1, Diabetes Mellitus Type 2, Internal Pacemaker, MRSA, Seizures *Have you ever received a pneumonia vaccine?: No *Have you received a flu vaccine this season?: No Anesthesia experience/problems:: nac Other Surgeries: Yes: , Dilation and Curettage, Other (Foot Sx). No: Pacemaker Amputation: No Fractures: No - *Social History Last grade of school completed: 9th or 10th Smoking Status: Current every day smoker Tobacco Type: cigarettes # Packs/Day (cigarettes): 2 Alcohol Intake: current Alcohol Intake Frequency:: holidays/special occasions only Substance Use Type: marijuana *Occupational Status:: unemployed Housing: house Household Members: spouse, children *Travel in the last 8 weeks: None - Psychiatric History Pschychiatric History:: Reports:: Anxiety, Depression Family Hx:: Coronary Artery Disease
--- NOTE | 2020-12-04 09:29 | P.PCN_ITS ---
[facility] Procedure Note Procedure Note:: Upper Endoscopy Procedure Report: Esophagogastroduodenoscopy with cold biopsies and TTS balloon dilation Endoscopost: Cirilo Gómez II, MD Referring Physician: NICK Suárez Date of Procedure: December 04, 2020 Equipment: Olympus GIF 180 standard upper endoscope Sedation: MAC sedation Indications: Mrs. Lopez is a 40-year-old female with dyspepsia. She has had epigastric abdominal pain and discomfort for over a year. She reports nausea, early satiety, bloating and belching. She does report some globus sensation. She does have irregular bowel function with constipation that alternates with diarrhea. She did go to the emergency department and was given Bentyl (dicyclomine) and Levaquin. She also has taken pantoprazole and famotidine. EGD is performed for further evaluation. Procedure: Prior to the procedure, a history and physical exam was performed, and patient's medications and allergies were reviewed. The risks, benefits and alternatives of the sedation and procedure were discussed with the patient. All questions were answered and informed consent was obtained. The patient was brought to the procedure room. Patient identification and proposed procedure were verified by the physician and the nurse. The patient was placed in a left lateral decubitus position and the scope was passed under direct vision. Throughout the procedure, the patient's blood pressure, pulse, and oxygen saturations were monitored continuously. The upper GI endoscopy was accomplished without difficulty. The patient tolerated the procedure well. Findings: The scope was passed directly into the upper esophagus and advanced to the third portion of the duodenum. The post bulbar duodenum and duodenal bulb were normal with normal mucosa and conniventes. Cold biopsies were taken from the post bulbar duodenum and duodenal bulb to rule out celiac disease. The scope was withdrawn through a normal duodenal bulb and pylorus into the stomach. There was bile reflux with linear reactive gastropathy of the antrum and body of the stomach. The remainder of the antrum, body and fundus of the stomach were grossly normal. Upon retroflexion there was a 2 cm hiatal hernia. 2 biopsies were taken in the antrum and along the lesser curvature for histology to rule out gastritis and/or H pylori. The scope was then withdrawn into the esophagus. There was a serrated Z-line and evidence of nonerosive GERD. There were tertiary contractions and evidence of moderate esophageal dysmotility. Biopsies were taken at the GE junction. The entire esophagus was dilated to 60 [place]/20 mm with a TTS hydrostatic balloon. There was mild resistance at the cricopharyngeus. The remainder of the esophageal mucosa was normal. Impression: 1. 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 Nonerosive GERD with moderate esophageal dysmotility and small 2 cm hiatal hernia 3. Bile reflux with linear reactive gastropathy Plan: The patient does have functional dyspepsia and functional GERD. We will discuss additional dietary measures and treatment options. I will follow-up the biopsies.
--- NOTE | 2020-12-04 10:18 | PC.NURSE ---
MIRLAX AND METAMUCIL, BUSPAR INSTRUCTIONS PER DR. MICHAELS
== END 2020-12-04 10:23 | disposition home or self-care (01) ==
LOC: OUTP 07:59
PROVIDERS: PCP Nurse Practitioner Family; Visit Provider Internal Medicine Gastroenterology
PROC: 0DJ08ZZ Inspection of Upper Intestinal Tract, Via Natural or Artificial Opening Endoscopic (ICD-10-PCS; CPT 43235; principal; 2020-12-04 09:00)
DX: K58.2 Mixed irritable bowel syndrome; J39.2 Other diseases of pharynx; K22.4 Dyskinesia of esophagus; K44.9 Diaphragmatic hernia without obstruction or gangrene; K31.9 Disease of stomach and duodenum, unspecified; K21.9 Gastro-esophageal reflux disease without esophagitis; J44.9 Chronic obstructive pulmonary disease, unspecified; E78.5 Hyperlipidemia, unspecified; I11.0 Hypertensive heart disease with heart failure; F41.9 Anxiety disorder, unspecified; F32.9 Major depressive disorder, single episode, unspecified; Z72.0 Tobacco use
CPT/HCPCS: 43239; 43249; C1726

== ENCOUNTER 2021-02-03 14:23 | Emergency (ER) | payer OTHER, SELFPAY ==
--- NOTE | 2021-02-03 14:31 | HMH.EDUTC ---
[facility] [place] Clinical Impression: Exposure to COVID-19 virus Disposition: Home, Self-Care Condition on Discharge: Good Instructions: Preventing the Spread of Coronavirus Discharge Instructions Additional Instructions: Drink plenty of fluids. Take tylenol for pain or fever. Return if you begin to have difficulty breathing. Follow up with your regular doctor. GO TO THE ER FOR ANY WORSENING SYMPTOMS Referrals: Campos Roy MD [Primary Care Provider] - Forms: Work/School Release Time of Disposition: 14:31 Medical Decision Making - Medical Records Medical records reviewed: No: I reviewed the patient's medical records. - Christian Inquiry Pt receiving controlled substance: No Vital Signs: 02/03/21 14:32 02/03/21 14:36 Temperature 97 F L 98 F Temperature Source Tympanic Pulse Rate 71 Pulse Rate [Right] 65 Respiratory Rate 14 13 Blood Pressure 101/75 L Blood Pressure [Right Arm] 99/69 L Blood Pressure Mean [Right Arm] 79 Blood Pressure Source [Right Arm] Automatic Cuff Blood Pressure Position [Right Arm] Sitting 02 Sat by Pulse Oximetry 98 Oxygen Delivery Method Room Air [facility] [place] HPI - General Stated complaint: covid test Time Seen by Provider: 02/03/21 14:31 - History of Present Illness Provider Complaint: She is starting a new job and she needs a covid test before she can do this. She denies any symptoms. - Related Data Home Medications Medication Instructions Recorded Confirmed albuterol sulfate 90 mcg/actuation 2 puff INHALATION Q4-6H PRN g 01/03/18 12/04/20 aerosol inhaler metoprolol succinate 25 mg 25 mg PO DAILY tab 12/16/19 12/04/20 tablet,extended release 24 hr atorvastatin 20 mg tablet 20 mg PO DAILY tab 12/31/19 12/04/20 bupropion HCl 150 mg tablet,12 hr 150 mg PO BID each 12/31/19 12/04/20 sustained-release Losartan Potassium [Cozaar 100mg 100 mg PO DAILY 09/01/20 12/04/20 Tablets] hydroCHLOROthiazide 12.5 mg PO DAILY 09/01/20 12/04/20 [Hydrochlorothiazide 12.5mg Tab] Dicyclomine HCl [Bentyl 10mg 10 mg PO TID 12/01/20 12/04/20 capsule] Pantoprazole Sodium 40 mg PO DAILY 12/01/20 12/04/20 Allergies Allergy/AdvReac Type Severity Reaction Status Date / Time No Known Allergies Allergy Verified 02/03/21 14:35 [facility] History - Hepatitis A Screen Attestation statement:: This patient has been screened for Hepatitis A risk factors. I have reviewed the patient's past medical history: Yes Medical History: Reports:: Anxiety, Asthma, Chronic Obstructive Pulmonary Disease (COPD), Depression, Hyperlipidemia, Hypertension Denies:: Cancer, Diabetes Mellitus Type 1, Diabetes Mellitus Type 2, Internal Pacemaker, MRSA, Seizures Other Surgeries: Yes: No Previous Surgery, , Dilation and Curettage, Other (Foot Sx). No: Pacemaker Amputation: No Fractures: No - Social History Smoking Status: Current every day smoker Tobacco Type: cigarettes # Packs/Day (cigarettes): 2 Alcohol Intake: current Alcohol Intake Frequency:: holidays/special occasions only Substance Use Type: marijuana Occupational Status: unemployed Housing: house Household Members: spouse, children - Psychiatric History Pschychiatric History:: Reports:: Anxiety, Depression Family Hx:: Coronary Artery Disease ROS Obtained: Yes All systems reviewed & no additional complaints - Constitutional Constitutional: Reports system reviewed and no additional complaints, except as docu - Eyes Eyes: Reports system reviewed and no additional complaints, except as docu - ENT Ears, Nose, Mouth, and Throat: Reports system reviewed and no additional complaints, except as docu - Cardiovascular Cardiovascular: Reports system reviewed and no additional complaints, except as docu - Respiratory Respiratory: Reports system reviewed and no additional complaints, except as docu - Gastrointestinal Gastrointestingal: Reports: system reviewed and no additional complaints,
[2021-02-03 14:32] VITALS: BP 99/69; PULSE 65; RESP 14; TEMP 36.1; O2SAT 98; BMI 35.5
[2021-02-03 14:36] VITALS: BP 101/75; PULSE 71; RESP 13; TEMP 36.6
== END 2021-02-03 14:40 | disposition home or self-care (01) ==
PROVIDERS: Emergency Provider Nurse Practitioner Family; PCP Family Medicine
DX: Z11.52 Encounter for screening for COVID-19 (principal); J44.9 Chronic obstructive pulmonary disease, unspecified; F41.8 Other specified anxiety disorders; E78.5 Hyperlipidemia, unspecified; I10 Essential (primary) hypertension; F17.210 Nicotine dependence, cigarettes, uncomplicated
CPT/HCPCS: 99202; G0463; U0003

== ENCOUNTER → 2021-03-24 10:01 | Outpatient (CLI) | payer OTHER, SELFPAY ==
[2021-03-24 10:22] LABS: Basophils # 0.1 K/mm3 (0-0.2); Basophils % 0.5 % (0.1-2.0); Eosinophils # 0.3 K/mm3 (0.0-0.4); Eosinophils % 2.7 % (0.1-12.0); Hematocrit 43.1 % (37.0-47.0); Hemoglobin 14.5 g/dL (12.2-16.2); Lymphocytes % 25.2 % (10-50); Mean Corpuscular HGB Conc 33.6 g/dL (31.8-35.4); Mean Corpuscular Hemoglobin 31.6 pg (27.0-31.2); Monocytes # 0.5 K/mm3 (0.1-1.0); Monocytes % 4.1 % (1.7-9.3); Neutrophils # 7.9 K/mm3 (1.8-7.8); Neutrophils % 67.5 % (37.0-80.0); Platelet Count 283 K/mm3 (142-424); Red Blood Count 4.58 M/mm3 (4.20-5.40); Red Cell Distribution Width 13.6 % (11.5-17.5); White Blood Count 11.7 K/mm3 (4.8-10.8)
[2021-03-24 10:28] LABS: Chloride 105 mmol/L (98-107); Sodium 137 mmol/L (136-145)
[2021-03-24 10:30] LABS: Blood Urea Nitrogen 9 mg/dl (7-17); Estimated Glomerular Filt Rate 92 ml/min (>60); GFR (African American) 112 ML/MIN (>60)
[2021-03-24 10:31] LABS: Alanine Aminotransferase 30 U/L (12-78); Albumin/Globulin Ratio 1.2 (1.1-1.8); Alkaline Phosphatase 77 U/L (38-126); Anion Gap 8.1 mEq/L (5-15); Aspartate Amino Transferase 28 U/L (14-36); Bilirubin,Total 0.5 mg/dl (0.2-1.3); Carbon Dioxide 28 mmol/L (22.0-30.0); Cholesterol 181 mg/dl (140-200); Globulin 3.4 g/dL (1.3-3.2); Glucose 108 mg/dl (74-100); Potassium 4.1 mmoL/L (3.5-5.1); Total Protein,Serum 7.4 g/dl (6.3-8.2); Triglycerides 160 mg/dl (30-150); VLDL Cholesterol 32 mg/dL (0-40)
[2021-03-24 10:32] LABS: Chol/HDL Ratio 5.5 (1-3.5); HDL Cholesterol 33 mg/dl (40-60)
[2021-03-24 10:33] LABS: Hemoglobin A1C 5.6 % (4.0-6.0)
[2021-03-24 10:42] LABS: Direct LDL Cholesterol 106.05 mg/dL (100-129)
[2021-03-24 10:44] LABS: Troponin I < 0.01 ng/ml (0.00-0.034)
[2021-03-24 11:00] LABS: Free Thyroxine Index 3.3 ug/dL (5.93-13.13); T4 (Thyroxine) 10.4 ug/dl (5.53-11.0); Triiodothryronine (T3) Uptake 32 % (23.5-40.5)
[2021-03-24 11:01] LABS: Thyroid Stimulating Hormone 1.98 uIU/mL (0.465-4.68)
[2021-03-24 11:14] LABS: Thyroid Stimulating Hormone 1.92 uIU/mL (0.465-4.68)
== END ==
PROVIDERS: Visit Provider Nurse Practitioner Family
DX: R07.9 Chest pain, unspecified (principal); I10 Essential (primary) hypertension; R53.83 Other fatigue; E78.5 Hyperlipidemia, unspecified; R35.1 Nocturia
CPT/HCPCS: 36415; 80053; 80061; 83036; 84436; 84443; 84479; 84484; 85025

== ENCOUNTER → 2021-04-06 12:10 | Outpatient (CLI) | payer OTHER, SELFPAY ==
--- NOTE | 2021-04-06 | CA_ITS ---
APPROVED REPORT Exam: Pharmacologic Technologist: Sarahi Cisneros, Ht: 5 ft 6 in Wt: 243 lbs BSA: 2.17 m2 HR: 67 bpm BP: 134/74 mmHg Rhythm: NSR, ST-T ABNS INFERIORLY AND LATERALLY Medical History Medical History: HTN, Hyperlipidemia Medications: Metoprolol,,,,, Albuterol,,,,, Montelukast,,,,, AtorvaASTATIN,,,,, Hydoxyzine,,,,, SucCINATE,,,,, HydrocLROTHIAZIDE,,,,, Stress Test Details Test: LEXISCAN HR Resting HR: 65 bpm Max Heart Rate (APMHR): 179.742117 bpm Max HR Achieved: 123 bpm Target HR (85% APMHR): 152.182900 bpm % of APMHR: 68.72 Recovery HR: 96 bpm BP Resting BP: 134/74 mmHg Max BP: 184/89 mmHg Recovery BP: 169.0/91.0 mmHg ECG Resting ECG: NSR, ST-T ABNS INFERIORLY AND LATERALLY Clinical Exercise duration: 04:01 min Highest Stage Achieved: Exercise capacity: 1.0 METs Stress ECG Conclusion DURING LEXISCAN PT EXPERINCED SOA, CHEST HEAVINESS, NAUSEA, AND VOMITTING. NO ARRYTHMIAS OR ECTOPY. EXAGGERATION OF BASELINE ST-T ABNS. NON DIAGNOSTIC LEXISCAN STRESS, MYOVIEW IMAGES REPORED SEPERATELY. Electronically signed by : Ranjan Maldonado, 04/06/2021 19:17:59
--- NOTE | 2021-04-06 12:10 | NM_ITS ---
APPROVED REPORT Exam: Nuclear Stress Test Indication: HTN, HYPERLIPIDEMIA, TOB USE, FM HX., C.P., SOB, PALPITATIONS, FATIGUE Patient Location: Outpatient Stress Tech: Samantha Tan NM Tech:Lilia Horta, ARRT, RT (R)(N) Ht: 5 ft 6 in Wt: 220 lbs Bra Size: 44D HR: 67 bpm BP: 134/74 mmHg BSA: 2.08 m2 BMI: 35.5 History: HTN, HYPERLIPIDEMIA, TOB USE, FM HX., C.P., SOB, PALPITATIONS, FATIGUE Procedure: Patient received a 0.4 mg of intravenous Lexiscan, resting heart rate 67 bpm, resting blood pressure 134/74 mmHg, with Lexiscan maximum heart rate achived was 120 bpm which is Less than 85 % of the maximum predicted heart rate and blood pressure was 189/95 mmHg. Electrocardiogram Resting electrocardiogram showed sinus rhythm with Lexiscan there is less than 1.[address] segment depression noted from the baseline EKG. The EKG portion of the Lexiscan is nondiagnostic. Cardiac Stress and Resting SPECT Images: Cardiac Stress and Resting SPECT images were obtained using technetium 99m Myoview 29.1 mCi stress and 9.53 mCi at rest. Gated SPECT for analysis of segmental wall motion and calculation of the ejection fraction also done. Cardiac stress and resting SPECT images show uniform myocardial activity without segmental perfusion abnormality, computer derived ejection fraction is 56% with no regional wall motion abnormality, right ventricle is normal size and contractility, there is transient ischemic dilatation of the left ventricle seen raising the concerns for presence of balanced ischemia, however other causes for transient ischemic dilatation is elevated left ventricular end-diastolic pressure, hypertension and hypertensive heart disease, microvascular disease and diabetes. Conclusion: 1. The EKG portion of the Lexiscan is nondiagnostic. 2. No scintigraphic evidence of reversible ischemia seen, computer derived ejection fraction is 56% with no regional wall motion abnormality, right ventricle is normal size and contractility however there is transient ischemic dilatation of the left ventricle seen, raising the concern for presence of balanced ischemia, however other causes of transient ischemic dilatation is elevated left ventricular end-diastolic pressure, hypertension hypertensive heart disease, microvascular disease and diabetes. Clinical correlation is recommended. 3. Abnormal Lexiscan myocardial perfusion imaging. Electronically signed by : Ranjan Maldonado, 04/06/2021 19:31:21
--- NOTE | 2021-04-06 13:05 | CA_ITS ---
APPROVED REPORT EXAM: Comprehensive 2D, Doppler, and color-flow Echocardiogram Edge Beader: Gloria Alanis RDCS Ht: 5 ft 6 in Wt: 243lbs BSA: 2.17 BP: 132/80 mmHg Indications: CP,ABN EKG,HTN,HLP,SMOKER,SOA 2D Dimensions LVOT 1.56 cm (M/F) 1.5-2.5 LA Volume 54.10 mL LA Volume Index 24.93 mL/m2 (M/F) 16-34 M-Mode Dimensions RVDd 2.11 cm (0.9-2.6) LA Diam 3.11 cm (1.9-4.0) LVDd 4.47 cm (3.5-5.7) Ao Diam 3.49 cm (2.0-3.7) LVDs 3.49 cm (3.5-5.7) IVSd 1.13 cm (0.6-1.1) PWd 1.19 cm (0.6-1.1) EF (Teich) 44.50% FS 21.90% EDV (Teich) 91.00 mL TAPSE 2.96 (<1.7) ESV (Teich) 50.50 mL LV Diastology E Decel Time 217.00 (160-240 msec) E/A Ratio 1.3 MED E' 7.90 (< 7 cm/sec) E'/MED E' Ratio 10.97 (>14) LAT E' 9.60 (<10 cm/sec) E/LAT E' Ratio 9.03 (>14) Aortic Valve LVOT Max 122.00 (70-110 cm/s) LVOT VTI 28.99 cm AoV Peak Pete. 137.00 (50-130 cm/s) AO Peak GR. 7.50 mmHg AO Mean GR. 4.10 (<5 mmHg) AO VTI 27.67 (18-25 cm) BORA (VTI) 2.00 (2.5-4.5 cm2) Mitral Valve MV E Max Pete. 87.00 (40-130 cm/s) MV A Velocity 65.00 (40-130 cm/s) E/A Ratio 1.33 MV Decel. Time 217.00 (160-240 ms) MV PHT 63.00 ms Left Ventricle Left atrium is normal size, left ventricle is normal size, there is no concentric left ventricular hypertrophy, visually estimated ejection fraction 55% with no regional wall motion abnormality, diastolic parameters are inconclusive. Right Ventricle Right atrium and right ventricle are normal size and contractility. Aortic Valve Aortic valve is minimally thickened and fibrosed, there is no aortic stenosis or aortic insufficiency. Mitral Valve Mitral valve is grossly normal, there is trace mitral regurgitation. Tricuspid Valve Tricuspid grossly normal, there is trace tricuspid regurgitation, tricuspid regurgitation jet velocity is inadequate for calculation of the right ventricular systolic pressure. Pulmonic Valve Pulmonic valve is poorly visualized. Great Vessels Aortic root is normal size. Pericardium No significant pericardial effusion noted. Conclusion 1. Normal left ventricular size, preserved left ventricular systolic function, visually estimated ejection fraction 55% with no regional wall motion abnormality. Diastolic parameters are within normal range. 2. Trace mitral and tricuspid regurgitation. 3. No significant pericardial effusion noted. Electronically signed by : Ranjan Maldonado, 04/06/2021 21:21:45
--- NOTE | 2021-04-06 14:01 | HMH.ITSHM ---
Current Home Medications as stated by this patient Dee Dee Lopez or product support representative. []MONTELUKAST METOPROLOL LOSARTAN HYDROXYZINE HCTZ ATORVASTATIN ASA ALBUTEROL
== END ==
PROVIDERS: PCP Family Medicine; Visit Provider Nurse Practitioner Family
DX: R07.9 Chest pain, unspecified (principal); R06.09 Other forms of dyspnea; I10 Essential (primary) hypertension; F17.200 Nicotine dependence, unspecified, uncomplicated
CPT/HCPCS: 78452; 93017; 93306; A9502; J2785

== ENCOUNTER → 2021-04-21 13:35 | Outpatient (CLI) | payer OTHER, SELFPAY ==
[2021-04-21 14:06] LABS: Basophils # 0.1 K/mm3 (0-0.2); Basophils % 0.5 % (0.1-2.0); Eosinophils # 0.3 K/mm3 (0.0-0.4); Eosinophils % 2.6 % (0.1-12.0); Hematocrit 44.1 % (37.0-47.0); Hemoglobin 14.6 g/dL (12.2-16.2); Lymphocytes # 2.4 K/mm3 (0.7-4.5); Lymphocytes % 20.3 % (10-50); Mean Corpuscular Hemoglobin 31.8 pg (27.0-31.2); Mean Corpuscular Volume 96.2 fl (81-99); Mean Platelet Volume 9.2 fl (7.4-10.4); Monocytes # 0.6 K/mm3 (0.1-1.0); Neutrophils # 8.6 K/mm3 (1.8-7.8); Neutrophils % 71.5 % (37.0-80.0); Platelet Count 293 K/mm3 (142-424); Red Blood Count 4.58 M/mm3 (4.20-5.40); Red Cell Distribution Width 13.5 % (11.5-17.5)
[2021-04-21 14:38] LABS: Anion Gap 12.3 mEq/L (5-15); Blood Urea Nitrogen 9 mg/dl (7-17); Calcium 8.9 mg/dl (8.4-10.2); Carbon Dioxide 24 mmol/L (22.0-30.0); Chloride 105 mmol/L (98-107); Estimated Glomerular Filt Rate 79 ml/min (>60); GFR (African American) 96 ML/MIN (>60); Glucose 100 mg/dl (74-100); Potassium 4.3 mmoL/L (3.5-5.1); Sodium 137 mmol/L (136-145)
[2021-04-22 16:15] LABS: HCG Qualitative, Serum Negative (Negative)
== END ==
PROVIDERS: Internal Medicine; Visit Provider Internal Medicine Cardiovascular Disease
DX: Z01.812 Encounter for preprocedural laboratory examination (principal); Z11.52 Encounter for screening for COVID-19; I20.9 Angina pectoris, unspecified
CPT/HCPCS: 36415; 80048; 84703; 85025; U0003

== ENCOUNTER 2021-04-26 08:02 | Day surgery (SDC) | payer OTHER, SELFPAY ==
[2021-04-26] VITALS (13 sets, daily range): BP systolic 127–179; BP diastolic 43–108; PULSE 69–88; RESP 16–18; TEMP 36.9; O2SAT 91–95; BMI 39.2
--- NOTE | 2021-04-26 | IR_ITS ---
APPROVED REPORT Patient Location: Outpatient PROCEDURES Left heart catheterization Left ventriculogram Selective coronary angiogram INDICATION High risk abnormal Myoview, Angina pectoris Informed consent was obtained prior to the procedure. COMPLICATIONS NONE Estimated Blood Loss: LESS THAN 10 ML TECHNIQUE One percent lidocaine used to anesthetize the right anterior aspect of the wrist. The right radial artery was accessed via the Seldinger technique. A 6 [place] sheath was placed in the right radial artery. 2.5 mg of verapamil, 800 mcg of nitroglycerin, 1mg Lidocaine and 5000 U Heparin were given through the arterial sheath. The trap catheter was also used to perform left heart catheterization, left ventriculogram and selective coronary angiogram. At the end of the procedure the sheath was removed good hemostasis was achieved using Traclet band, patient was transferred to the postop holding area in stable condition. ANGIOGRAPHIC RESULTS The left main artery Normal The left anterior descending artery Mild 10% diffuse luminal irregularities The circumflex artery Normal The right coronary artery Dominant mild diffuse luminal irregularities The ZHANG ventriculogram reveals Normal 65% The left ventricular end-diastolic pressure 20-25 mmHg IMPRESSION Mild nonflow limiting coronary disease Normal ejection fraction Elevated LVEDP consistent with diastolic dysfunction PLAN 1. Treat diastolic dysfunction 2. Risk factor modification Electronically signed by : Manan Gates, 04/26/2021 13:08:15
== END 2021-04-26 13:23 | disposition home or self-care (01) ==
LOC: CATHLAB 08:02
PROVIDERS: PCP Nurse Practitioner Family; Visit Provider Internal Medicine
DX: I25.118 Atherosclerotic heart disease of native coronary artery with other forms of angina pectoris (principal); R94.39 Abnormal result of other cardiovascular function study; I10 Essential (primary) hypertension; F17.210 Nicotine dependence, cigarettes, uncomplicated; Z79.899 Other long term (current) drug therapy; J44.9 Chronic obstructive pulmonary disease, unspecified
CPT/HCPCS: 93458; 99152; C1725; C1769; J1644; Q9967

== ENCOUNTER → 2021-05-05 14:26 | Outpatient (CLI) | payer OTHER, SELFPAY ==
--- NOTE | 2021-05-05 14:27 | CA_ITS ---
APPROVED REPORT Laterality: Unilateral right [place] Department Supervisor: Juliana Fenton, STAVE SAW OPERATOR Comments Pt had heart cath with R wrist access 04/26/21. Small knot at sight. Findings Right wrist negative for a pseudo-aneurysm. Conclusion Right wrist negative for a pseudo-aneurysm. Electronically signed by : Marino Victor MD 05/06/2021 11:53:33
== END ==
PROVIDERS: PCP Nurse Practitioner Family; Visit Provider Nurse Practitioner Family
DX: M25.531 Pain in right wrist (principal); I77.0 Arteriovenous fistula, acquired
CPT/HCPCS: 93931

== ENCOUNTER 2021-06-12 08:59 | Emergency (ER) | payer OTHER, SELFPAY ==
[2021-06-12 09:12] VITALS: BP 136/91; PULSE 80; RESP 16; TEMP 36.2; O2SAT 98; BMI 39.4
[2021-06-12 09:22] LABS: Adenovirus,PCR Not Detected (NotDetected); Bordetella Pertussis Not Detected (NotDetected); Chlamydophila Pneumoniae, PCR Not Detected (NotDetected); Coronavirus 19, PCR Not Detected (NotDetected); Coronavirus NL63 Not Detected (NotDetected); Coronavirus OC43 Not Detected (NotDetected); Coronovirus HKU1,PCR Not Detected (NotDetected); Human Metapneumovirus Not Detected (NotDetected); Influenza A, PCR Not Detected (NotDetected); Influenza AH1, 2009 Not Detected (NotDetected); Influenza AH1, PCR Not Detected (NotDetected); Influenza AH3,PCR Not Detected (NotDetected); Influenza B, PCR Not Detected (NotDetected); Mycoplasma Pneumoniae, PCR Not Detected (NotDetected); Parainfluenza 1, PCR Not Detected (NotDetected); Parainfluenza 2, PCR Not Detected (NotDetected); Parainfluenza 3, PCR Not Detected (NotDetected); Parainfluenza 4, PCR Not Detected (NotDetected); Respiratory Syncytial Virus Not Detected (NotDetected); Rhinovirus/Enterovirus Not Detected (NotDetected)
--- NOTE | 2021-06-12 09:28 | HMH.EDUTC ---
[facility] [place] Clinical Impression: COVID-19 virus test result unknown Upper respiratory infection Qualifiers: URI type: unspecified viral URI Qualified Code(s): J06.9 - Acute upper respiratory infection, unspecified Disposition: Home, Self-Care Condition on Discharge: Good Instructions: DI for COVID-19 (Suspected or Confirmed ), COVID-19: Protecting Yourself When You're at High Risk Additional Instructions: No sign of a bacterial infection. Likely viral. Viruses can take 7-14 days to run their course. Nasal saline and bulb syringe or nose Jeannette to remove nasal drainage to help with nasal congestion. Hard to eat, drink, sleep with nasal congestion so important to keep this cleaned out. Monitor temp. Tylenol or Motrin as needed for pain or fever Encourage fluids, water, Gatorade, Powerade, Pedialyte if /toddler/child Warm salt water gargles Warm fluids Sore throat lozenges Sleep elevated Humidifier/vaporizer Your upper resp swab was sent to lab, call for results later today, until test results are known neg self isolate. Follow-up immediately for new or worsening symptoms or no noticeable improvement over the next 48-72 hours. Referrals: Jennifer Johnson APRN [Primary Care Provider] - Time of Disposition: 09:35 Medical Decision Making - Christian Inquiry Pt receiving controlled substance: No Vital Signs: 06/12/21 09:12 Temperature 97.1 F L Temperature Source Tympanic Pulse Rate [Right Apical] 80 Respiratory Rate 16 Blood Pressure [Right Arm] 136/91 H Blood Pressure Mean [Right Arm] 106 Blood Pressure Source [Right Arm] Automatic Cuff Blood Pressure Position [Right Arm] Sitting 02 Sat by Pulse Oximetry 98 Oxygen Delivery Method Room Air Orders (Tests/Meds): ORDERS Category Date Time Status Full Resp Panel w/COVID ([facility]) Routine Lab 06/12/21 09:20 [place] [facility] [place] - General Chief complaint: [facility]gent [facility] Stated complaint: sore throat, ear pain, Headache Time Seen by Provider: 06/12/21 09:28 Mode of Arrival: Ambulatory Source of Information: Patient Limitations: No Limitations Description of Symptoms (Recalled from Triage Doc. by RN): sore throat, headache, ear ache HEENT Symptoms (Recalled from RN notes): Yes Resp Symptoms (Recalled from RN notes): No Skin Symptoms (Recalled from RN notes): No MS Symptoms (Recalled from RN notes): No Functional Status (Recalled from RN notes): na - History of Present Illness Provider Complaint: 40 yr old female presents for sore throat,headache, sinus pressure,ear pain and fever that started this am. has been exposed to other ill coworkers - Related Data Home Medications Medication Instructions Recorded Confirmed albuterol sulfate 90 mcg/actuation 2 puff INHALATION Q4-6H PRN g 01/03/18 04/15/21 aerosol inhaler metoprolol succinate 25 mg 25 mg PO DAILY tab 12/16/19 04/15/21 tablet,extended release 24 hr atorvastatin 20 mg tablet 20 mg PO DAILY tab 12/31/19 04/15/21 hydroxyzine HCl 10 mg tablet 10 mg PO QID PRN tab 03/24/21 04/15/21 losartan 100 mg tablet 100 mg PO DAILY tab 03/24/21 04/15/21 montelukast 10 mg tablet 10 mg PO DAILY tab 03/24/21 04/15/21 Aspirin [Low Dose Aspirin EC] 81 mg PO DAILY 04/26/21 bupropion HCl 150 mg tablet,12 hr 150 mg PO BID each 05/05/21 05/05/21 sustained-release Furosemide [Furosemide 40MG tAB*] 40 mg PO DAILY 06/12/21 06/12/21 Spironolactone [Spironolactone 25 mg PO DAILY 06/12/21 06/12/21 25mg Tablet] Allergies Allergy/AdvReac Type Severity Reaction Status Date / Time No Known Allergies Allergy Verified 05/05/21 13:47 - Worker's Comp Is this a Worker's Comp case?: No [facility] History - Hepatitis A Screen Drug use history?: No High risk sexual behaviors?: No History of sexually transmitted infection?: No Currently employed?: No Childcare worker?: No Do you have indoor plumbing?: Yes Do you have electricity?: Yes Attestation statement:: This patient has b
[2021-06-12 09:35] VITALS: BP 136/91; PULSE 80; RESP 16; TEMP 36.2; O2SAT 99
[2021-06-12 09:38] LABS: UTC Strep Screen (Rapid) Negative (Negative)
[2021-06-12 10:39] LABS: Coronavirus 229E Detected (NotDetected)
== END 2021-06-12 09:41 | disposition home or self-care (01) ==
PROVIDERS: Emergency Provider Nurse Practitioner Family; PCP Nurse Practitioner
DX: B34.2 Coronavirus infection, unspecified (principal); J06.9 Acute upper respiratory infection, unspecified
CPT/HCPCS: 87581; 87633; 87798; 87880; 99202; G0463

== ENCOUNTER 2021-07-31 15:38 | Emergency (ER) | payer OTHER, SELFPAY ==
--- NOTE | 2021-07-31 17:12 | HMH.EDUTC ---
[facility] [place] Disposition Clinical Impression: Encounter for screening for COVID-19 Disposition: Home, Self-Care Condition on Discharge: Good Instructions: Preventing the Spread of Coronavirus Discharge Instructions, DI for COVID-19 (Suspected or Confirmed ) Additional Instructions: Drink plenty of fluids. Take tylenol for pain or fever. Return if you begin to have difficulty breathing. Follow up with your regular doctor. GO TO THE ER FOR ANY WORSENING SYMPTOMS Quarantine until you know the results of your covid-19 test. If it is positive, the health department should call you and give you further instructions about your length of Quarantine and other things. Notify your school or workplace of your results and follow their instructions regarding return to work/school. Referrals: Jennifer Johnson APRN [Primary Care Provider] - Time of Disposition: 17:16 Medical Decision Making - Medical Records Medical records reviewed: No: I reviewed the patient's medical records. - Christian Inquiry Pt receiving controlled substance: No [facility] [place] HPI - General Stated complaint: covid test Time Seen by Provider: 07/31/21 17:12 - History of Present Illness Provider Complaint: She needs a covid test to start a new job. She denies any known exposure or symptoms. - Related Data Home Medications Medication Instructions Recorded Confirmed albuterol sulfate 90 mcg/actuation 2 puff INHALATION Q4-6H PRN g 01/03/18 04/15/21 aerosol inhaler metoprolol succinate 25 mg 25 mg PO DAILY tab 12/16/19 06/12/21 tablet,extended release 24 hr atorvastatin 20 mg tablet 20 mg PO DAILY tab 12/31/19 06/12/21 hydroxyzine HCl 10 mg tablet 10 mg PO QID PRN tab 03/24/21 06/12/21 losartan 100 mg tablet 100 mg PO DAILY tab 03/24/21 06/12/21 montelukast 10 mg tablet 10 mg PO DAILY tab 03/24/21 06/12/21 Aspirin [Low Dose Aspirin EC] 81 mg PO DAILY 04/26/21 06/12/21 bupropion HCl 150 mg tablet,12 hr 150 mg PO BID each 05/05/21 06/12/21 sustained-release Furosemide [Furosemide 40MG tAB*] 40 mg PO DAILY 06/12/21 06/12/21 Spironolactone [Spironolactone 25 mg PO DAILY 06/12/21 06/12/21 25mg Tablet] Allergies Allergy/AdvReac Type Severity Reaction Status Date / Time No Known Allergies Allergy Verified 05/05/21 13:47 [facility] History - Hepatitis A Screen Attestation statement:: This patient has been screened for Hepatitis A risk factors. I have reviewed the patient's past medical history: Yes Medical History: Reports:: Anxiety, Asthma, Chronic Obstructive Pulmonary Disease (COPD), Depression, Hyperlipidemia, Hypertension Denies:: Cancer, Diabetes Mellitus Type 1, Diabetes Mellitus Type 2, Internal Pacemaker, MRSA, Seizures Other Surgeries: Yes: No Previous Surgery, Cardiac Catheterization, , Dilation and Curettage, Other (Foot Sx). No: Pacemaker Amputation: No Fractures: No - Social History Smoking Status: Current every day smoker Tobacco Type: cigarettes # Packs/Day (cigarettes): 1 Alcohol Intake: never Alcohol Intake Frequency:: holidays/special occasions only Substance Use Type: marijuana Occupational Status: unemployed Housing: house Household Members: spouse - Psychiatric History Pschychiatric History:: Reports:: Anxiety, Depression Family Hx:: Coronary Artery Disease ROS Obtained: Yes All systems reviewed & no additional complaints - Constitutional Constitutional: Reports system reviewed and no additional complaints, except as docu - Eyes Eyes: Reports system reviewed and no additional complaints, except as docu - ENT Ears, Nose, Mouth, and Throat: Reports system reviewed and no additional complaints, except as docu - Cardiovascular Cardiovascular: Reports system reviewed and no additional complaints, except as docu - Respiratory Respiratory: Reports system reviewed and no additional complaints, except as docu - Gastrointestinal Gastrointestingal: Reports: system reviewed and no additiona
[2021-07-31 17:27] VITALS: PULSE 75; RESP 16; TEMP 36.8; O2SAT 97; BMI 33.7
[2021-07-31 17:29] VITALS: BP 126/55; PULSE 75; RESP 16; TEMP 36.8
--- NOTE | 2021-08-01 14:34 | PC.NURSE ---
relayed positive results to pt.
== END 2021-07-31 17:37 | disposition home or self-care (01) ==
PROVIDERS: Emergency Provider Nurse Practitioner Family; PCP Nurse Practitioner
DX: U07.1 COVID-19 (principal); F17.210 Nicotine dependence, cigarettes, uncomplicated; J44.9 Chronic obstructive pulmonary disease, unspecified; I10 Essential (primary) hypertension; E78.5 Hyperlipidemia, unspecified; Z79.899 Other long term (current) drug therapy
CPT/HCPCS: 99202; C9803; G0463; U0003; U0005

== ENCOUNTER 2021-12-22 13:47 | Emergency (ER) | payer OTHER, SELFPAY ==
[2021-12-22 13:48] VITALS: BP 172/104; PULSE 107; RESP 18; TEMP 36.6; O2SAT 96; BMI 40.3
--- NOTE | 2021-12-22 14:21 | HMH.EDGENADL ---
ED Disposition Clinical Impression: Thoracic back pain Qualifiers: Chronicity: acute Back pain laterality: right Qualified Code(s): M54.6 - Pain in thoracic spine Disposition: Home, Self-Care Condition on Discharge: Fair Instructions: DI for Thoracic Back Pain Additional Instructions: [place] as needed for pain. Ibuprofen as prescribed. Follow-up with primary care provider, call to make appointment. Additional instructions for BACK PAIN: See your physician as soon as possible for further evaluation. Return immediately if back pain becomes intolerable, or if fever, numbness or weakness of your legs, loss of control of your bowels or bladder. Additional instructions for CONTROLLED SUBSTANCES: You have been prescribed a medication that is a controlled substance. Controlled substances include pain medications known as opiates and sedative nerve medications known as benzodiazepines. Tramadol, fioricet, and gabapentin are also controlled substances. Some common opiates include: Codeine (such as Tylenol #3) Hydrocodone (Vicodin, Lortab, Lorcet, [place]) Oxycodone (Percocet, Percodan, Oxycodone, Oxy IR) Some common benzodiazepines include: Diazepam (Valium) Lorazepam (Ativan) Alprazolam (Xanax) Clonazepam (Klonopin) Oxazepam (Serax) All of these controlled substances are highly addictive and frequently abused. Misuse can and frequently does lead to addiction as well as overdose and . Medication should be stored in a locked cabinet or other secure storage unit. Do not store the medication in a motor vehicle. Short term supplies, 3 days or less, are prescribed because of the highly addictive nature of the medication. Any of the controlled substance medication NOT taken should be disposed of properly and NOT SAVED. The recommended method of disposing of unused medications is: Place the medicines in a sealable plastic bag. If the medicine is a solid, crush it or add water to dissolve it. Add something undesirable (cat litter, coffee grounds, etc.) Dispose of sealed bag in household trash Do not flush or pour unused medicines down a sink or drain. Controlled substances should not be shared, given away or sold. Because of the addictive nature and frequent abuse, these medications are sometimes stolen. These medications should be kept in a safe place where they cannot be stolen. Do not keep them in your car or purse. Lost or stolen prescriptions for controlled substances WILL NOT BE REFILLED in this emergency department, regardless of whether a police report was filed. Prescriptions: Hydrocod/Acet 5/325 mg [[place] 5/325mg tablet] 1 tab PO Q6HP PRN #8 tab PRN Reason: Pain Transmission Status: Received by [facility] Ibuprofen [Ibuprofen 800mg Tablet] 800 mg PO Q8HP PRN #15 tab PRN Reason: Moderate Pain Transmission Status: Received by [facility] Ondansetron [Zofran 4mg ODT] 4 mg PO TIDP PRN #10 tab PRN Reason: Nausea And Vomiting Transmission Status: Pending to [facility] Referrals: Luis Turner MD [Primary Care Provider] - - Critical Care Critical Care Time: No Attestation: On 12/22/21, the high probability of a clinically significant, sudden or life threatening deterioration of the following system(s) required my full and direct attention, intervention and personal management. The time I documented below is in addition to time spent performing reported procedures but includes the following listed in this critical care notation. Medical Decision Making - Christian Inquiry Pt receiving controlled substance: Yes Christian was queried for this patient: Yes Risks and benefits of using a controlled substance: were discussed with pt by me Vital Signs: 12/22/21 13:48 12/22/21 15:30 12/22/21 16:12 Temperature 97.9 F Temperature Source Oral Pulse Rate 89 91 H Pulse Rate [Right Radial] 107 H Respiratory Rate 18 18
--- NOTE | 2021-12-22 14:29 | CT_ITS ---
FINAL REPORT CLINICAL HISTORY: right CVA pain, r/o stone COMPARISON: CT abdomen and pelvis with contrast dated October 09, 2020 FINDINGS: Axial CT images of the abdomen and pelvis were obtained without intravenous contrast. Coronal reformatted images were also obtained.This study was performed with techniques to keep radiation doses as low as reasonably achievable (ALARA). Individualized dose reduction techniques using automated exposure control or adjustment of mA and/or kV according to the patient''s size were employed. Abdomen: The lung bases are clear. There is no evidence of renal stone or hydronephrosis. The gallbladder is surgically absent. The liver, spleen and pancreas have an unremarkable, unenhanced appearance. No mass or adenopathy is seen. No inflammatory process is identified. There are mild vascular calcifications. Pelvis: Images of the pelvis reveal no evidence of ureteral dilation or ureteral stone. The appendix is normal. There is a small amount of pelvic free fluid which may be physiologic or reactive. IMPRESSION: No renal or ureteral stone, or hydronephrosis. No mass or inflammatory process. Reviewed, Interpreted and Dictated by Asif Crum III, MD Transcribed by Britany Frances Authenticated by Asif Crum III, MD on 12/22/2021 03:24:[address] [facility]
--- NOTE | 2021-12-22 14:30 | CT_ITS ---
FINAL REPORT CLINICAL HISTORY: back pain FINDINGS: Axial imaging of the lumbar spine was obtained without contrast. Sagittal and coronal reformatted images were also obtained and reviewed.This study was performed with techniques to keep radiation doses as low as reasonably achievable (ALARA). Individualized dose reduction techniques using automated exposure control or adjustment of mA and/or kV according to the patient's size were employed. There is no fracture. The vertebral alignment is normal. There is multilevel mild degenerative change. There is no evidence of significant central canal stenosis. L1-2: There is an annular bulge with mild bilateral neural foraminal narrowing. L2-3: There is an annular bulge with mild bilateral neural foraminal narrowing. L3-4: There is an annular bulge and facet arthropathy. There is mild bilateral neural foraminal narrowing. L4-5: There is an annular bulge with moderate right and mild left neural foraminal narrowing. L5-S1: There is an annular bulge with mild bilateral neuroforaminal narrowing. There is spurring of the SI joints with vacuum phenomenon. IMPRESSION: Multilevel degenerative change without acute bony abnormality. Reviewed, Interpreted and Dictated by Asif Crum III, MD Transcribed by Gurinder Spence Authenticated by Asif Crum III, MD on 12/22/2021 04:06:[address] [facility]
--- NOTE | 2021-12-22 14:30 | CT_ITS ---
FINAL REPORT CLINICAL HISTORY: back pain FINDINGS: Axial CT images of the thoracic spine were obtained without contrast. Sagittal and coronal reformatted images were also obtained. This study was performed with techniques to keep radiation doses as low as reasonably achievable (ALARA). Individualized dose reduction techniques using automated exposure control or adjustment of mA and/or kV according to the patient's size were employed. There is no evidence of fracture. The vertebral alignment is normal. There is multilevel mild degenerative change with multiple osteophytes. There is no evidence of significant canal stenosis. No paraspinous soft tissue abnormality is identified. There is a 6 mm nodule in the left lower lobe that is nonspecific. IMPRESSION: No fracture or acute bony abnormality. Multilevel mild degenerative change. Nonspecific 6 mm left lower lobe nodule. Consider follow-up in 6-12 months. Reviewed, Interpreted and Dictated by Asif Crum III, MD Transcribed by Gurinder Spence Authenticated by Asif Crum III, MD on 12/22/2021 04:06:46 PM [facility]
[2021-12-22 14:34] LABS: Microscopic, Urine URINE MICROSCOPIC (MICROSCOPIC)
[2021-12-22 14:42] LABS: Appearance,Urine CLEAR (Clear); Bilirubin,Urine Negative (Negative); Blood, Urine Negative (Negative); Color,Urine YELLOW (Yellow); Glucose,Urine (UA) Negative (Negative); Ketones,Urine Negative (Negative); Leukocyte Esterase,Urine Negative (Negative); Nitrate,Urine Negative (Negative); Protein,Urine Negative (Negative); Specific Gravity, Urine <= 1.005 (1.005-1.030); Urobilinogen,Urine 0.2 EU/dl (0.2)
--- NOTE | 2021-12-22 14:52 | PC.NURSE ---
pt to ct
[2021-12-22 14:56] LABS: WBC,Urine Occasional #/hpf (0-3)
[2021-12-22 15:01] LABS: Basophils # 0.3 K/mm3 (0-0.2); Basophils % 1.9 % (0.1-2.0); Eosinophils # 0.3 K/mm3 (0.0-0.4); Eosinophils % 1.9 % (0.1-12.0); Hematocrit 51.6 % (37.0-47.0); Hemoglobin 16.5 g/dL (12.2-16.2); Lymphocytes # 2.6 K/mm3 (0.7-4.5); Lymphocytes % 17.7 % (10-50); Mean Corpuscular Hemoglobin 33.3 pg (27.0-31.2); Mean Corpuscular Volume 103.9 fl (81-99); Mean Platelet Volume 9.9 fl (7.4-10.4); Monocytes # 0.7 K/mm3 (0.1-1.0); Monocytes % 4.7 % (1.7-9.3); Neutrophils # 10.6 K/mm3 (1.8-7.8); Neutrophils % 73.7 % (37.0-80.0); Platelet Count 404 K/mm3 (142-424); Red Blood Count 4.96 M/mm3 (4.20-5.40); Red Cell Distribution Width 14.6 % (11.5-17.5); White Blood Count 14.4 K/mm3 (4.8-10.8)
[2021-12-22 15:02] LABS: Chloride 96 mmol/L (98-107)
[2021-12-22 15:03] LABS: Potassium 3.6 mmoL/L (3.5-5.1); Sodium 132 mmol/L (136-145)
[2021-12-22 15:05] LABS: Alanine Aminotransferase 23 U/L (12-78); Albumin Level 4.8 g/dl (3.5-5.0); Albumin/Globulin Ratio 1.2 (1.1-1.8); Alkaline Phosphatase 96 U/L (38-126); Anion Gap 13.6 mEq/L (5-15); Aspartate Amino Transferase 27 U/L (14-36); Bilirubin,Total 0.7 mg/dl (0.2-1.3); Blood Urea Nitrogen 11 mg/dl (7-17); Calcium 9.5 mg/dl (8.4-10.2); Carbon Dioxide 26 mmol/L (22.0-30.0); Creatinine Clearance Estimated 131 mL/min (50-200); Estimated Glomerular Filt Rate 61 ml/min (>60); GFR (African American) 74 ML/MIN (>60); Globulin 3.9 g/dL (1.3-3.2); Glucose 128 mg/dl (74-100); Lipase 65 U/L (23-300); Total Protein,Serum 8.7 g/dl (6.3-8.2)
[2021-12-22 15:30] VITALS: BP 121/75; PULSE 89; RESP 18; O2SAT 94
[2021-12-22 16:12] VITALS: BP 123/59; PULSE 91; RESP 18; O2SAT 94
[2021-12-22 16:45] VITALS: BP 123/59; PULSE 91; RESP 18; TEMP 36.6; O2SAT 94
== END 2021-12-22 16:45 | disposition home or self-care (01) ==
PROVIDERS: Emergency Provider Emergency Medicine; PCP Emergency Medicine
DX: M54.6 Pain in thoracic spine (principal)
CPT/HCPCS: 72128; 72131; 74176; 80053; 81001; 83690; 85025; 96374; 96375; 96376; 99283; J2405

== ENCOUNTER 2021-12-22 23:42 | Emergency (ER) | payer OTHER, SELFPAY ==
[2021-12-22 23:44] VITALS: BP 117/58; PULSE 88; RESP 18; TEMP 36.5; O2SAT 95; BMI 36.1
--- NOTE | 2021-12-22 23:57 | HMH.EDGENADL ---
ED Disposition Clinical Impression: Neuropathic pain Disposition: Home, Self-Care Condition on Discharge: Good Instructions: DI for Chronic Pain -- Adult, Neuropathic Pain Additional Instructions: Please follow up with your primary care physician for further management of your chronic pain. Please use the medication provided to you during your visit today. Please return for any worsening symptoms. Referrals: Luis Turner MD [Primary Care Provider] - Time of Disposition: 00:10 - Critical Care Critical Care Time: No Attestation: On , the high probability of a clinically significant, sudden or life threatening deterioration of the following system(s) required my full and direct attention, intervention and personal management. The time I documented below is in addition to time spent performing reported procedures but includes the following listed in this critical care notation. Medical Decision Making - Medical Records Medical records reviewed: Yes: I reviewed the patient's medical records. - Christian Inquiry Pt receiving controlled substance: Yes (Given norco by provider earlier today ) Christian was queried for this patient: No Risks and benefits of using a controlled substance: were not discussed with pt by me Vital Signs: 12/22/21 23:44 12/23/21 00:06 Temperature 97.7 F 97.7 F Temperature Source Oral Pulse Rate 90 Pulse Rate [Left] 88 Respiratory Rate 18 18 Blood Pressure 117/58 L Blood Pressure [Right Arm] 117/58 L Blood Pressure Mean [Right Arm] 77 02 Sat by Pulse Oximetry 95 - Lab Data Lab results reviewed: Yes: I reviewed the patient's lab results. Orders (Tests/Meds): ED MEDICATIONS Discontinued Medications Generic Name Dose Route Start Last Admin Trade Name Freq PRN Reason Stop Dose Admin Ondansetron HCl 4 mg 12/23/21 00:05 12/23/21 00:06 Ondansetron 4mg Odt SL 12/23/21 00:06 4 mg ONCE ONE Administration Medical Decision Narrative: Miss Lopez is a 41 yo female w/ PMH for chronic pain who presents to the ED with diffuse pain worse in hands and lower legs described as burning and tingling which has been present for months and intermittent periods of emesis. Patient denies any other infectious symptoms and has had symptoms for months. Furthermore patient was recently seen today in the ED and discharged w/ norco and zofran for which she denies taking. Patient physical exam benign, no clinical. Labs from today's visit shows no electrolyte abnormalities. patient has good cap refill, good skin turgor no concern for dehydration at this time. Differentials to consider include: Drug seeking, peripheral neuropathy, viral mediated illness, metabolic/electrolte abnormality unlikely given labs within the last 12 hours were unremarkable. Patient wants to know if she can have more pain meds, but reports she has not taking any of the prescription meds given to her earlier today. Patient is given zofran for symptomatic relief and I discussed w/ patient that she should take her pain meds as prescribed to her by the ED today. Patient is discharged in stable condition and informed to fu w/ her pcp in 2-3 days for further management. Patient provided strict return precautions such as difficulty breathing, inability to eat and drink, chest pain or worsening symptoms. Patient is also instructed to discuss w/ her PCP regarding starting meds for neuropathic pain. General Adult HPI - General Chief complaint: PAIN Stated complaint: Vomiting and hands cramping Time Seen by Provider: 12/22/21 23:45 Mode of Arrival: Ambulatory Source of Information: Patient, Medical Record Limitations: No Limitations - History of Present Illness HPI narrative: Miss Lopez is a 41 yo female w/ PMH for chronic pain who presents to the ED for diffuse pain. She reports pain everywhere described as tingling and achy worse in her hands and legs. Symptoms onset months ago. She was seen earlier today for the same s
[2021-12-23 00:06] VITALS: BP 117/58; PULSE 90; RESP 18; TEMP 36.5; O2SAT 95
== END 2021-12-23 00:06 | disposition home or self-care (01) ==
LOC: ER 12-23 00:48
PROVIDERS: Emergency Provider Student in an Organized Health Care Education/Training Program; PCP Emergency Medicine
DX: M79.2 Neuralgia and neuritis, unspecified (principal); I10 Essential (primary) hypertension; E78.5 Hyperlipidemia, unspecified; F41.8 Other specified anxiety disorders; J44.9 Chronic obstructive pulmonary disease, unspecified; F17.210 Nicotine dependence, cigarettes, uncomplicated; Z79.899 Other long term (current) drug therapy
CPT/HCPCS: 99281

== ENCOUNTER → 2022-01-03 13:25 | Outpatient (CLI) | payer OTHER, SELFPAY | PROVIDERS: PCP Emergency Medicine; Visit Provider Nurse Practitioner Family | DX: G47.33 Obstructive sleep apnea (adult) (pediatric) (principal); R40.0 Somnolence | CPT/HCPCS: 95806 ==

== ENCOUNTER → 2022-01-11 12:26 | Outpatient (CLI) | payer OTHER, SELFPAY ==
[2022-01-11 13:17] LABS: Chloride 95 mmol/L (98-107); Potassium 3.8 mmoL/L (3.5-5.1); Sodium 132 mmol/L (136-145)
[2022-01-11 13:20] LABS: Anion Gap 12.8 mEq/L (5-15); Blood Urea Nitrogen 13 mg/dl (7-17); Carbon Dioxide 28 mmol/L (22.0-30.0); Estimated Glomerular Filt Rate 61 ml/min (>60); GFR (African American) 74 ML/MIN (>60); Glucose 110 mg/dl (74-100)
== END ==
PROVIDERS: PCP Emergency Medicine; Visit Provider Nurse Practitioner Family
DX: R06.09 Other forms of dyspnea (principal); R07.9 Chest pain, unspecified; I10 Essential (primary) hypertension; F17.200 Nicotine dependence, unspecified, uncomplicated; G47.33 Obstructive sleep apnea (adult) (pediatric); R40.0 Somnolence
CPT/HCPCS: 36415; 80048

== ENCOUNTER → 2022-01-12 11:00 | Outpatient (CLI) | payer OTHER, SELFPAY ==
--- NOTE | 2022-01-12 11:04 | XR_ITS ---
FINAL REPORT TECHNIQUE: Chest PA & Lateral CLINICAL HISTORY: COPD, smoker , chest pain COMPARISON: December 31, 2018 FINDINGS: 2 views of the chest were performed. The heart size is normal. The mediastinum is within normal limits. There is scarring in the right lung base. There are no pleural effusions. There is no pneumothorax. The bony thorax appears intact. IMPRESSION: No acute cardiopulmonary process. Reviewed, Interpreted and Dictated by Chris Delacruz MD Transcribed by Gurinder Spence Authenticated by Chris Delacruz MD on 01/12/2022 12:21:46 PM [facility]
[2022-01-12 13:37] LABS: Ferritin 128 ng/ml (6.24-137)
== END ==
PROVIDERS: PCP Emergency Medicine; Visit Provider Specialist
DX: E83.10 Disorder of iron metabolism, unspecified (principal)
CPT/HCPCS: 36415; 71046; 82728

== ENCOUNTER → 2022-03-15 12:20 | Outpatient (CLI) | payer OTHER, SELFPAY ==
[2022-03-15 12:45] VITALS: PULSE 89; PULSE 90
[2022-03-15 13:26] LABS: Basophils # 0.1 K/mm3 (0-0.2); Basophils % 0.6 % (0.1-2.0); Eosinophils # 0.3 K/mm3 (0.0-0.4); Eosinophils % 2.1 % (0.1-12.0); Hematocrit 45.8 % (37.0-47.0); Hemoglobin 15.1 g/dL (12.2-16.2); Lymphocytes # 2.6 K/mm3 (0.7-4.5); Lymphocytes % 18.3 % (10-50); Mean Corpuscular HGB Conc 32.9 g/dL (31.8-35.4); Mean Corpuscular Hemoglobin 33.7 pg (27.0-31.2); Mean Corpuscular Volume 102.5 fl (81-99); Mean Platelet Volume 9.3 fl (7.4-10.4); Monocytes # 0.6 K/mm3 (0.1-1.0); Monocytes % 4.1 % (1.7-9.3); Neutrophils # 10.5 K/mm3 (1.8-7.8); Platelet Count 308 K/mm3 (142-424); Red Blood Count 4.46 M/mm3 (4.20-5.40); Red Cell Distribution Width 14.2 % (11.5-17.5)
[2022-03-15 14:06] LABS: Chloride 103 mmol/L (98-107); Potassium 4.4 mmoL/L (3.5-5.1); Sodium 136 mmol/L (136-145)
[2022-03-15 14:09] LABS: Anion Gap 11.4 mEq/L (5-15); Blood Urea Nitrogen 13 mg/dl (7-17); Carbon Dioxide 26 mmol/L (22.0-30.0); Estimated Glomerular Filt Rate 79 ml/min (>60); GFR (African American) 95 ML/MIN (>60)
[2022-03-15 14:10] LABS: Calcium 9.4 mg/dl (8.4-10.2); Glucose 124 mg/dl (74-100)
== END ==
PROVIDERS: Internal Medicine Cardiovascular Disease; PCP Emergency Medicine; Visit Provider Internal Medicine Pulmonary Disease
DX: R06.00 Dyspnea, unspecified (principal); R07.89 Other chest pain; R07.9 Chest pain, unspecified; I10 Essential (primary) hypertension
CPT/HCPCS: 80048; 82607; 82746; 85025; 94060; 94618; 94640; 94726; 94729

== ENCOUNTER → 2022-03-24 11:42 | Outpatient (CLI) | payer OTHER, SELFPAY ==
[2022-03-24 13:16] LABS: Chloride 105 mmol/L (98-107); Potassium 4.7 mmoL/L (3.5-5.1); Sodium 138 mmol/L (136-145)
[2022-03-24 13:19] LABS: Anion Gap 9.7 mEq/L (5-15); Blood Urea Nitrogen 6 mg/dl (7-17); Calcium 9.5 mg/dl (8.4-10.2); Carbon Dioxide 28 mmol/L (22.0-30.0); Estimated Glomerular Filt Rate 79 ml/min (>60); GFR (African American) 95 ML/MIN (>60); Glucose 99 mg/dl (74-100)
[2022-04-16 17:24] LABS: Alpha-1-Antitrypsin 151
[2022-04-16 17:25] LABS: D001-IgE D pteronyssinus <0.10; D002-IgE D farinae <0.10; Immunoglobulin E, Total 13
[2022-04-16 17:26] LABS: E001-IgE Cat Dander <0.10; E005-IgE Dog Dander <0.10; G002-IgE Bermuda Grass <0.10; G006-IgE Timothy Grass <0.10; I006-IgE Cockroach, German <0.10
[2022-04-16 17:27] LABS: M001-IgE Penicillium chrysogen <0.10; M002-IgE Cladosporium herbarum <0.10; M003-IgE Aspergillus fumigatus <0.10; M006-IgE Alternaria alternata <0.10; T001-IgE Maple/Box Elder <0.10; T003-IgE Common Silver Birch <0.10; T006-IgE Cedar, Mountain <0.10; T007-IgE Oak, White <0.10; T008-IgE Elm, American <0.10; T010-IgE Walnut <0.10
[2022-04-16 17:28] LABS: E072-IgE Mouse Urine <0.10; T011-IgE Maple Leaf Sycamore <0.10; T014-IgE Cottonwood <0.10; T015-IgE Ash, White <0.10; T022-IgE Pecan, Hickory <0.10; T070-IgE White Mulberry <0.10; W001-IgE Ragweed, Short <0.10; W011-IgE Thistle, Russian <0.10; W014-IgE Pigweed, Common <0.10; W018-IgE Sheep Sorrel <0.10
== END ==
PROVIDERS: Nurse Practitioner Family; Visit Provider Internal Medicine Pulmonary Disease
DX: R06.09 Other forms of dyspnea (principal); R07.9 Chest pain, unspecified; I20.8 Other forms of angina pectoris; J44.9 Chronic obstructive pulmonary disease, unspecified; I10 Essential (primary) hypertension; R94.39 Abnormal result of other cardiovascular function study; G47.33 Obstructive sleep apnea (adult) (pediatric); R40.0 Somnolence; F17.200 Nicotine dependence, unspecified, uncomplicated
CPT/HCPCS: 36415; 80048; 82103; 82785; 86003

== ENCOUNTER 2022-09-13 12:17 | Emergency (ER) | payer OTHER, SELFPAY ==
[2022-09-13 13:55] VITALS: BP 187/75; PULSE 81; RESP 16; TEMP 36.7; O2SAT 95; BMI 38.7
--- NOTE | 2022-09-13 14:01 | EXP.UTC ---
Discharge Plan Disposition Patient Disposition: Home, Self-Care Condition: Good Prescriptions Prescriptions: New amoxicillin 875 mg tablet 875 mg PO BID Qty: 20 0RF prednisone 10 mg tablet 10 mg PO BID 5 Days Qty: 10 0RF fluticasone propionate [Flonase Allergy Relief] 50 mcg/actuation spray,suspension 1 spray intranasal DAILY Qty: 16 0RF Rx Instructions: administer into each nostril No Action atorvastatin 20 mg tablet 20 mg PO DAILY Qty: 90 3RF losartan 100 mg tablet 100 mg PO DAILY Qty: 90 3RF metoprolol succinate 25 mg tablet extended release 24 hr 25 mg PO DAILY Qty: 90 3RF albuterol sulfate 90 mcg/actuation HFA aerosol inhaler 1 inh INHALATION Q6H PRN (Reason: shortness of breath or wheezing) 90 Days Qty: 8.5 3RF ipratropium-albuterol 0.5 mg-3 mg(2.5 mg base)/3 mL solution for nebulization 3 ml INHALATION Q6H PRN (Reason: shortness of breath or wheezing) Qty: 90 6RF aspirin 81 MG tablet,delayed release (DR/EC) 81 mg PO DAILY ondansetron 4 MG tablet,disintegrating 4 mg PO TIDP PRN (Reason: Nausea And Vomiting) Qty: 10 0RF vitamin B complex Tablet 1 tab PO DAILY spironolactone 50 mg tablet See Rx Instructions .ROUTE .COMPLEX Rx Instructions: TAKE ONE TABLET BY MOUTH ONCE A DAY furosemide 80 mg tablet See Rx Instructions .ROUTE .COMPLEX Rx Instructions: TAKE ONE TABLET BY MOUTH ONCE A DAY budesonide-formoterol [Symbicort] 160-4.5 mcg/actuation HFA aerosol inhaler 2 puff INHALATION BID Referrals Follow up/Referrals: Luis Turner MD [Primary Care Provider] - See instructions Activity Restrictions/Add. Instructions Additional Instructions/Restrictions: Take medicaiton as prescribed Followup with your Family Doctor if no imrpovemet or any worsening of symptoms Return if needed Straight to ER if any life threatening symptoms Clinical Impressions Clinical Impression: Otitis media Qualifiers: Otitis media type: unspecified Laterality: bilateral Qualified Code(s): H66.93 - Otitis media, unspecified, bilateral Stand Alone Forms Stand Alone Forms: Work/School Release Instructions Patient Instructions: Middle Ear Infection Discharge ED Provider: Jane Aragon [facility] HPI General Stated complaint: Ear pain, CESPEDES Mode of Arrival: Ambulatory Source of Information: Patient Limitations: No Limitations Time Seen by Provider: 09/13/22 14:01 Description of Symptoms (Recalled from Triage Doc. by RN): pt comes in with c/o bilateral ear pain since last night. pt states it is making her feel dizzy. symptoms began a few days ago HEENT Symptoms (Recalled from RN notes): Yes Resp Symptoms (Recalled from RN notes): No Skin Symptoms (Recalled from RN notes): No MS Symptoms (Recalled from RN notes): No Functional Status (Recalled from RN notes): n/a History of Present Illness Provider Complaint: Patient states that she has been having pain in both ears on and off for several days that got worse last night States that pressure like feeling in her ears has made her feel a little dizzy at times when she moves too quickly Related Data Home Medications Medication Instructions Recorded Confirmed aspirin 81 mg tablet,delayed 81 mg PO DAILY heart health 04/26/21 09/13/22 release budesonide-formoterol HFA 160 2 puff inhalation BID Asthma 09/13/22 09/13/22 mcg-4.5 mcg/actuation aerosol inhaler (Symbicort) furosemide 80 mg tablet See Rx Instructions .Route 09/13/22 09/13/22 .COMPLEX Fluid spironolactone 50 mg tablet See Rx Instructions .Route 09/13/22 09/13/22 .COMPLEX Fluid vitamin B complex 1 tab PO DAILY Supplement 09/13/22 09/13/22 Previous Rx's Medication Instructions Recorded ondansetron 4 mg disintegrating 4 mg PO TIDP PRN Nausea And 12/22/21 tablet Vomiting #10 tabs atorvastatin 20 mg tablet 20 mg PO DAILY Cholesterol #90 tabs 12/28/21 losartan 100 mg tablet 100 mg PO DAILY High blood 12/28/21
[2022-09-13 14:06] VITALS: BP 187/75; PULSE 81; RESP 16; TEMP 36.7
== END 2022-09-13 14:08 | disposition home or self-care (01) ==
PROVIDERS: Emergency Provider Nurse Practitioner; PCP Emergency Medicine
DX: H66.93 Otitis media, unspecified, bilateral (principal)
CPT/HCPCS: 99212; G0463

== ENCOUNTER 2022-10-05 06:51 | Emergency (ER) | payer OTHER, SELFPAY ==
[2022-10-05 06:53] VITALS: BP 130/74; PULSE 82; RESP 18; TEMP 36.5; O2SAT 97; BMI 38.7
[2022-10-05 06:57] VITALS: BP 130/74; PULSE 75; O2SAT 97
[2022-10-05 07:02] VITALS: BP 109/76; PULSE 74; O2SAT 97
--- NOTE | 2022-10-05 07:27 | PC.NURSE ---
visual aquity RIGHT: 20/30 LEFT: 20/30 BOTH: 20/30
--- NOTE | 2022-10-05 07:42 | PC.NURSE ---
DR[facility] AT BEDSIDE
--- NOTE | 2022-10-05 07:49 | HMH.EDEYEP ---
Discharge Plan Disposition Patient Disposition: Home, Self-Care Prescriptions Prescriptions: New minocycline 100 mg Capsule 100 mg PO BID Qty: 14 0RF No Action atorvastatin 20 mg tablet 20 mg PO DAILY Qty: 90 3RF losartan 100 mg tablet 100 mg PO DAILY Qty: 90 3RF metoprolol succinate 25 mg tablet extended release 24 hr 25 mg PO DAILY Qty: 90 3RF ipratropium-albuterol 0.5 mg-3 mg(2.5 mg base)/3 mL solution for nebulization 3 ml INHALATION Q6H PRN (Reason: shortness of breath or wheezing) Qty: 90 6RF albuterol sulfate 90 mcg/actuation HFA aerosol inhaler 1 inh INHALATION Q6H PRN (Reason: shortness of breath or wheezing) 90 Days Qty: 8.5 3RF budesonide-formoterol [Symbicort] 160-4.5 mcg/actuation HFA aerosol inhaler 2 puff inhalation BID 90 Days Qty: 10.2 3RF spironolactone 50 mg tablet 50 mg PO DAILY Qty: 90 3RF furosemide 80 mg tablet 80 mg PO DAILY Qty: 90 3RF aspirin 81 MG tablet,delayed release (DR/EC) 81 mg PO DAILY ondansetron 4 MG tablet,disintegrating 4 mg PO TIDP PRN (Reason: Nausea And Vomiting) Qty: 10 0RF vitamin B complex Tablet 1 tab PO DAILY amoxicillin 875 mg tablet 875 mg PO BID Qty: 20 0RF prednisone 10 mg tablet 10 mg PO BID 5 Days Qty: 10 0RF fluticasone propionate [Flonase Allergy Relief] 50 mcg/actuation spray,suspension 1 spray intranasal DAILY Qty: 16 0RF Rx Instructions: administer into each nostril budesonide-formoterol [Symbicort] 160-4.5 mcg/actuation HFA aerosol inhaler 2 puff INHALATION BID Referrals Follow up/Referrals: Luis Turner MD [Primary Care Provider] - See instructions Clinical Impressions Clinical Impression: Dacryadenitis, acute Instructions Patient Instructions: DI for Dacryocystitis Discharge ED Provider: Luis Turner Eye Problem HPI General Chief complaint: Eye Problems Stated complaint: AO 10/05/22 FB left eye Time Seen by Provider: 10/05/22 07:49 Mode of Arrival: Ambulatory Source of Information: Patient and Medical Record Limitations: No Limitations Description of Symptoms (Recalled from ER Triage Doc. by RN): PT REPORTS LEFT EYE PAIN THAT BEGAN THIS AM History of Present Illness HPI Narrative: swelling above lt eye noted this am MD chief complaint: other (swelling lid ) Onset (ago): hour(s) Onset description: sudden Duration: intermittent Location: left eye Eye Symptoms: itching Place: home Severity: moderate Associated symptoms: none Treatments Prior to Arrival: none Related Data Home Medications Medication Instructions Recorded Confirmed aspirin 81 mg tablet,delayed 81 mg PO DAILY heart health 04/26/21 09/13/22 release budesonide-formoterol HFA 160 2 puff inhalation BID Asthma 09/13/22 09/13/22 mcg-4.5 mcg/actuation aerosol inhaler (Symbicort) vitamin B complex 1 tab PO DAILY Supplement 09/13/22 09/13/22 Previous Rx's Medication Instructions Recorded ondansetron 4 mg disintegrating 4 mg PO TIDP PRN Nausea And 12/22/21 tablet Vomiting #10 tabs atorvastatin 20 mg tablet 20 mg PO DAILY Cholesterol #90 tabs 12/28/21 losartan 100 mg tablet 100 mg PO DAILY High blood 12/28/21 pressure #90 tabs metoprolol succinate 25 mg 25 mg PO DAILY Hypertension #90 12/28/21 tablet,extended release 24 hr tabs ipratropium 0.5 mg-albuterol 3 mg 3 ml inhalation Q6H PRN shortness 01/12/22 (2.5 mg base)/3 mL nebulization of breath or wheezing #90 mL soln amoxicillin 875 mg tablet 875 mg PO BID #20 tabs 09/13/22 fluticasone propionate 50 1 spray intranasal DAILY #16 grams 09/13/22 mcg/actuation nasal spray,suspension (Flonase Allergy Relief) prednisone 10 mg tablet 10 mg PO BID 5 days #10 tabs 09/13/22 albuterol sulfate 90 mcg/actuation 1 inh inhalation Q6H PRN shortness 09/20/22 aerosol inhaler of breath or wheezing 90 days #8.5 grams budesonide-formoterol HFA 160 2 puff inhalation BID 90 days 09/20/22 mcg-4.5 mcg/actuation aeros
[2022-10-05 08:05] VITALS: BP 110/81; PULSE 76; RESP 17; TEMP 36.5; O2SAT 99
== END 2022-10-05 08:05 | disposition home or self-care (01) ==
PROVIDERS: Emergency Provider Emergency Medicine; PCP Emergency Medicine
DX: H04.322 Acute dacryocystitis of left lacrimal passage (principal); R94.31 Abnormal electrocardiogram [ECG] [EKG]; I20.9 Angina pectoris, unspecified; I50.31 Acute diastolic (congestive) heart failure; R06.02 Shortness of breath; G47.33 Obstructive sleep apnea (adult) (pediatric); F17.210 Nicotine dependence, cigarettes, uncomplicated; Z79.51 Long term (current) use of inhaled steroids; Z79.82 Long term (current) use of aspirin; Z79.899 Other long term (current) drug therapy
CPT/HCPCS: 99283

== ENCOUNTER → 2022-11-08 14:16 | Outpatient (CLI) | payer OTHER, SELFPAY ==
[2022-11-08 20:06] LABS: Basophils # 0.1 K/mm3 (0-0.2); Basophils % 0.9 % (0.1-2.0); Eosinophils # 0.3 K/mm3 (0.0-0.4); Eosinophils % 2.5 % (0.1-12.0); Hemoglobin 15.5 g/dL (12.2-16.2); Lymphocytes # 3.2 K/mm3 (0.7-4.5); Lymphocytes % 25.1 % (10-50); Mean Corpuscular HGB Conc 31.5 g/dL (31.8-35.4); Mean Corpuscular Hemoglobin 31.9 pg (27.0-31.2); Mean Corpuscular Volume 101.3 fl (81-99); Mean Platelet Volume 10.6 fl (7.4-10.4); Monocytes # 0.7 K/mm3 (0.1-1.0); Monocytes % 5.5 % (1.7-9.3); Neutrophils # 8.4 K/mm3 (1.8-7.8); Platelet Count 348 K/mm3 (142-424); Red Blood Count 4.84 M/mm3 (4.20-5.40); Red Cell Distribution Width 13.3 % (11.5-17.5); White Blood Count 12.7 K/mm3 (4.8-10.8)
[2022-11-08 20:12] LABS: Anion Gap 11.4 mEq/L (5-15); Blood Urea Nitrogen 12 mg/dl (7-17); Carbon Dioxide 28 mmol/L (22.0-30.0); Chloride 103 mmol/L (98-107); Potassium 4.4 mmoL/L (3.5-5.1); Sodium 138 mmol/L (136-145)
[2022-11-08 20:13] LABS: Alanine Aminotransferase 24 U/L (12-78); Albumin Level 4.3 g/dl (3.5-5.0); Albumin/Globulin Ratio 1.4 (1.1-1.8); Alkaline Phosphatase 100 U/L (38-126); Aspartate Amino Transferase 28 U/L (14-36); Bilirubin,Total 0.3 mg/dl (0.2-1.3); Calcium 9.8 mg/dl (8.4-10.2); Chol/HDL Ratio 5.1 (1-3.5); Cholesterol 190 mg/dl (140-200); Estimated Glomerular Filt Rate 78 ml/min (>60); GFR (African American) 95 ML/MIN (>60); Globulin 3.1 g/dL (1.3-3.2); Glucose 93 mg/dl (74-100); HDL Cholesterol 37 mg/dl (40-60); Magnesium 1.8 mg/dl (1.6-2.3); Total Protein,Serum 7.4 g/dl (6.3-8.2); Triglycerides 317 mg/dl (30-150); VLDL Cholesterol 63 mg/dL (0-40)
[2022-11-08 20:24] LABS: Direct LDL Cholesterol 95.42 mg/dL (100-129)
[2022-11-08 20:30] LABS: T4 (Thyroxine) 8.4 ug/dl (5.53-11.0)
[2022-11-08 20:36] LABS: Hemoglobin A1C 5.7 % (4.0-6.0)
[2022-11-08 20:39] LABS: 25-OH Vitamin D, Total < 12.8 ng/mL (30-100)
[2022-11-08 20:43] LABS: Thyroid Stimulating Hormone 1.64 uIU/mL (0.465-4.68)
== END ==
PROVIDERS: PCP Physician Assistant; Visit Provider Physician Assistant
DX: R25.2 Cramp and spasm (principal); I10 Essential (primary) hypertension; E55.9 Vitamin D deficiency, unspecified; Z79.899 Other long term (current) drug therapy
CPT/HCPCS: 80053; 80061; 82306; 82607; 83036; 83735; 84436; 84443; 85025

== ENCOUNTER 2023-01-05 01:47 | Emergency (ER) | payer OTHER, SELFPAY ==
--- NOTE | 2023-01-05 01:54 | ECG_ITS ---
APPROVED REPORT Exam: Resting ECG HR:78 bpm ECG Measurements Heart Rate 78 AXES [place] 137 P 63 QRSd 105 QRS 5 QT 364 T 40 QTc 398 Conclusion SINUS RHYTHM MINIMAL ST DEPRESSION [0.025+ mV ST DEPRESSION] BORDERLINE ECG UNCONFIRMED REPORT Electronically signed by : Prashant Box MD 01/06/2023 08:59:03
[2023-01-05 01:59] VITALS: BP 152/98; PULSE 77; RESP 18; TEMP 36.6; O2SAT 98; BMI 38.7
[2023-01-05 02:01] VITALS: BP 132/83; PULSE 76; RESP 13; O2SAT 96
--- NOTE | 2023-01-05 02:02 | XR_ITS ---
PROCEDURE INFORMATION: Exam: XR Chest Exam date and time: 01/05/2023 2:13 AM Age: 42 years old Clinical indication: Shortness of breath; Additional info: Cough TECHNIQUE: Imaging protocol: Radiologic exam of the chest. Views: 2 views. COMPARISON: CR XR CHEST 2V 01/12/2022 11:06 AM FINDINGS: Lungs: Unremarkable. No consolidation. Pleural spaces: Unremarkable. No pleural effusion. No pneumothorax. Heart/Mediastinum: Unremarkable. No cardiomegaly. Bones/joints: Unremarkable. IMPRESSION: No acute findings.
[2023-01-05 02:08] LABS: Coronavirus 19, PCR Not Detected (NotDetected); Influenza A, PCR Not Detected (NotDetected); Influenza B, PCR Not Detected (NotDetected)
[2023-01-05 02:10] LABS: Basophils # 0.2 K/mm3 (0-0.2); Basophils % 1.3 % (0.1-2.0); Eosinophils # 0.5 K/mm3 (0.0-0.4); Eosinophils % 4.6 % (0.1-12.0); Hematocrit 44.7 % (37.0-47.0); Lymphocytes # 2.8 K/mm3 (0.7-4.5); Lymphocytes % 24.7 % (10-50); Mean Corpuscular HGB Conc 33.5 g/dL (31.8-35.4); Mean Corpuscular Hemoglobin 32.8 pg (27.0-31.2); Mean Platelet Volume 9.9 fl (7.4-10.4); Monocytes # 0.5 K/mm3 (0.1-1.0); Monocytes % 4.2 % (1.7-9.3); Neutrophils # 7.4 K/mm3 (1.8-7.8); Neutrophils % 65.2 % (37.0-80.0); Platelet Count 278 K/mm3 (142-424); Red Blood Count 4.57 M/mm3 (4.20-5.40); Red Cell Distribution Width 13.6 % (11.5-17.5); White Blood Count 11.3 K/mm3 (4.8-10.8)
[2023-01-05 02:19] LABS: Alanine Aminotransferase 27 U/L (12-78); Albumin/Globulin Ratio 1.3 (1.1-1.8); Alkaline Phosphatase 70 U/L (38-126); Anion Gap 7.6 mEq/L (5-15); Aspartate Amino Transferase 25 U/L (14-36); Bilirubin,Total 0.4 mg/dl (0.2-1.3); Blood Urea Nitrogen 11 mg/dl (7-17); Calcium 8.3 mg/dl (8.4-10.2); Carbon Dioxide 28 mmol/L (22.0-30.0); Chloride 103 mmol/L (98-107); Creatinine Clearance Estimated 156 mL/min (50-200); Estimated Glomerular Filt Rate 78 ml/min (>60); GFR (African American) 95 ML/MIN (>60); Globulin 3.1 g/dL (1.3-3.2); Glucose 125 mg/dl (74-100); Potassium 3.6 mmoL/L (3.5-5.1); Sodium 135 mmol/L (136-145); Total Protein,Serum 7.1 g/dl (6.3-8.2)
--- NOTE | 2023-01-05 02:27 | CT_ITS ---
PROCEDURE INFORMATION: Exam: CT Abdomen And Pelvis With Contrast Exam date and time: 01/05/2023 2:51 AM Age: 42 years old Clinical indication: Abdominal pain; Prior surgery; Surgery type: Cholecystectomy; Additional info: Abd pain TECHNIQUE: Imaging protocol: Computed tomography of the abdomen and pelvis with contrast. Radiation optimization: All CT scans at this facility use at least one of these dose optimization techniques: automated exposure control; mA and/or kV adjustment per patient size (includes targeted exams where dose is matched to clinical indication); or iterative reconstruction. Contrast material: ISOVUE; Contrast volume: 75 ml; Contrast route: IV; Other protocol: This patient has received 0 known CTs and 0 known cardiac nuclear medicine studies in the 12 months prior to the current study. COMPARISON: CT ABDOMEN PELVIS WO CON 12/22/2021 3:00 PM FINDINGS: Lungs: Lung bases are clear. Diaphragm: Small sliding hiatal hernia. Liver: Hepatic steatosis. Gallbladder and bile ducts: Status post cholecystectomy. No biliary dilatation. Pancreas: Normal. No ductal dilation. Spleen: Normal. No splenomegaly. Adrenal glands: Normal. No mass. Kidneys and ureters: Normal. No hydronephrosis. Stomach and bowel: Unremarkable. No obstruction. No mucosal thickening. Appendix: Normal appendix. Intraperitoneal space: Unremarkable. No free air. No significant fluid collection. Vasculature: Unremarkable. No abdominal aortic aneurysm. Lymph nodes: Unremarkable. No enlarged lymph nodes. Urinary bladder: Unremarkable as visualized. Reproductive: Unremarkable as visualized. Bones/joints: No acute osseous abnormality. Soft tissues: Unremarkable. IMPRESSION: 1. No acute findings. 2. Status post cholecystectomy. No biliary dilatation. 3. Normal appendix. 4. Hepatic steatosis.
[2023-01-05 02:34] LABS: Amylase 46 U/L (30-110); Lipase 58 U/L (23-300)
[2023-01-05 02:35] LABS: Troponin I < 0.01 ng/ml (0.00-0.034)
--- NOTE | 2023-01-05 03:17 | HMH.EDSOB ---
Discharge Plan Disposition Patient Disposition: Home, Self-Care Prescriptions Prescriptions: New azithromycin [azithromycin] 250 mg tablet 250 mg PO DIRECTED Qty: 6 0RF Rx Instructions: Take two (2) tablets on day #1, then one (1) tablet day #2 thru #5 benzonatate 100 mg Capsule 100 mg PO Q8H Qty: 20 0RF prednisone [prednisone] 20 mg tablet 20 mg PO BID Qty: 10 0RF No Action losartan 100 mg tablet 100 mg PO DAILY Qty: 90 3RF ondansetron 4 mg tablet,disintegrating 4 mg PO Q8H Qty: 20 0RF loperamide 2 mg capsule 2 mg PO Q6H PRN (Reason: loose stool) Qty: 10 0RF ipratropium-albuterol 0.5 mg-3 mg(2.5 mg base)/3 mL solution for nebulization 3 ml INHALATION Q6H PRN (Reason: shortness of breath or wheezing) Qty: 90 6RF cefdinir 300 mg capsule 300 mg PO Q12H 10 Days Qty: 20 0RF prednisone 20 mg tablet 20 mg PO BID Qty: 10 0RF Rx Instructions: administer with food or milk Mucinex 1,200 mg tablet extended release 12hr 1,200 mg PO BID Qty: 20 0RF albuterol sulfate [Proventil HFA] 90 mcg/actuation HFA aerosol inhaler 2 puff inhalation Q6H Qty: 8.5 0RF Rx Instructions: administer with spacer albuterol sulfate 90 mcg/actuation HFA aerosol inhaler 1 inh INHALATION Q6H PRN (Reason: shortness of breath or wheezing) 90 Days Qty: 8.5 3RF budesonide-formoterol [Symbicort] 160-4.5 mcg/actuation HFA aerosol inhaler 2 puff inhalation BID 90 Days Qty: 10.2 3RF spironolactone 50 mg tablet 50 mg PO DAILY Qty: 90 3RF furosemide 80 mg tablet 80 mg PO DAILY Qty: 90 3RF ergocalciferol (vitamin D2) 1,250 mcg (50,000 unit) capsule 1,250 mcg PO WEEKLY Qty: 14 3RF cholecalciferol (vitamin D3) 25 mcg (1,000 unit) capsule 25 mcg PO DAILY Qty: 90 3RF cyanocobalamin (vitamin B-12) 1,000 mcg/mL solution 1,000 mcg IM QMONTH Qty: 100 2RF Rx Instructions: Pt to inject 1ml daily x7 days, then pt to inject 1ml weekly x4 weeks, then pt to inject 1ml monthly. (DME) BD Integra Syringe 3 mL 25 gauge x 1 syringe See Rx Instructions .Route Qty: 50 0RF Rx Instructions: As directed for Vitamin B12 Deficiency metoprolol succinate 25 mg tablet extended release 24 hr 25 mg PO DAILY Qty: 90 3RF atorvastatin 20 mg tablet 20 mg PO DAILY Qty: 90 3RF aspirin 81 MG tablet,delayed release (DR/EC) 81 mg PO DAILY vitamin B complex Tablet 1 tab PO DAILY fluticasone propionate [Flonase Allergy Relief] 50 mcg/actuation spray,suspension 1 spray intranasal DAILY Qty: 16 0RF Rx Instructions: administer into each nostril Referrals Follow up/Referrals: Luis Turner MD [Primary Care Provider] - See instructions Clinical Impressions Clinical Impression: Acute exacerbation of chronic obstructive airways disease Discharge ED Provider: Yue (ED)Luis Resp/SOB HPI General Chief Complaint: Shortness of Breath/Dyspnea Stated Complaint: SOA,Asthma Time Seen by Provider: 01/05/23 03:18 Mode of Arrival: Ambulatory Source of Information: Patient and Medical Record Limitations: No Limitations Description of Symptoms (Recalled from ER Triage Doc. by RN): Pt c/o chest pressure since yesterday morning. States that she has had cough/congestion for prior week. States that this morning at 0050 she woke up with severe soa. Denies any chest pain. Denies nausea/vomiting. History of Present Illness cough and congestion with hx of tob use and asthma MD Complaint: shortness of breath, cough and asthma attack Onset (ago): day(s) Severity: moderate Known history of: COPD and asthma Associated symptoms: denies other symptoms Treatment prior to arrival: bronchodilator Related Data Home oxygen amount: none Home Medications Medication Instructions Recorded Confirmed aspirin 81 mg tablet,delayed 81 mg PO DAILY heart health 04/26/21 12/12/22 release vitamin B complex 1 tab PO DAILY Supplement
[2023-01-05 04:33] VITALS: PULSE 78; PULSE 84
[2023-01-05 04:39] VITALS: BP 130/80; PULSE 80; RESP 18; TEMP 36.6; O2SAT 95
== END 2023-01-05 04:52 | disposition home or self-care (01) ==
PROVIDERS: Emergency Provider Emergency Medicine; PCP Emergency Medicine
DX: J44.1 Chronic obstructive pulmonary disease with (acute) exacerbation (principal); I50.9 Heart failure, unspecified; F17.210 Nicotine dependence, cigarettes, uncomplicated; Z86.79 Personal history of other diseases of the circulatory system; Z20.822 Contact with and (suspected) exposure to COVID-19
CPT/HCPCS: 71046; 74177; 80053; 82150; 83690; 84484; 85025; 93005; 96374; 96375; 99285; C9803; Q9967; U0003; U0005

== ENCOUNTER 2023-01-26 12:30 | Emergency (ER) | payer OTHER, SELFPAY ==
--- NOTE | 2023-01-26 13:08 | EXP.UTC ---
Discharge Plan Disposition Patient Disposition: Home, Self-Care Condition: Good Prescriptions Prescriptions: New promethazine-DM 6.25-15 mg/5 mL Syrup 5 ml PO Q6H PRN (Reason: Cough) Qty: 240 0RF prednisone 10 mg tablet 10 mg PO DIRECTED 9 Days Qty: 21 0RF Rx Instructions: Take 4 tablets daily for 3 days, then take 2 tablets daily for 3 days, then take 1 tablet daily for 3 days, then stop. benzonatate [benzonatate] 100 mg capsule 100 mg PO TIDP PRN (Reason: Cough) Qty: 30 0RF amoxicillin-pot clavulanate 875-125 mg Tablet 1 tab PO Q12H Qty: 20 0RF No Action losartan 100 mg tablet 100 mg PO DAILY Qty: 90 3RF ondansetron 4 mg tablet,disintegrating 4 mg PO Q8H Qty: 20 0RF loperamide 2 mg capsule 2 mg PO Q6H PRN (Reason: loose stool) Qty: 10 0RF ipratropium-albuterol 0.5 mg-3 mg(2.5 mg base)/3 mL solution for nebulization 3 ml INHALATION Q6H PRN (Reason: shortness of breath or wheezing) Qty: 90 6RF cefdinir 300 mg capsule 300 mg PO Q12H 10 Days Qty: 20 0RF prednisone 20 mg tablet 20 mg PO BID Qty: 10 0RF Rx Instructions: administer with food or milk Mucinex 1,200 mg tablet extended release 12hr 1,200 mg PO BID Qty: 20 0RF albuterol sulfate [Proventil HFA] 90 mcg/actuation HFA aerosol inhaler 2 puff inhalation Q6H Qty: 8.5 0RF Rx Instructions: administer with spacer albuterol sulfate 90 mcg/actuation HFA aerosol inhaler 1 inh INHALATION Q6H PRN (Reason: shortness of breath or wheezing) 90 Days Qty: 8.5 3RF spironolactone 50 mg tablet 50 mg PO DAILY Qty: 90 3RF furosemide 80 mg tablet 80 mg PO DAILY Qty: 90 3RF ergocalciferol (vitamin D2) 1,250 mcg (50,000 unit) capsule 1,250 mcg PO WEEKLY Qty: 14 3RF cholecalciferol (vitamin D3) 25 mcg (1,000 unit) capsule 25 mcg PO DAILY Qty: 90 3RF cyanocobalamin (vitamin B-12) 1,000 mcg/mL solution 1,000 mcg IM QMONTH Qty: 100 2RF Rx Instructions: Pt to inject 1ml daily x7 days, then pt to inject 1ml weekly x4 weeks, then pt to inject 1ml monthly. (DME) BD Integra Syringe 3 mL 25 gauge x 1 syringe See Rx Instructions .Route Qty: 50 0RF Rx Instructions: As directed for Vitamin B12 Deficiency metoprolol succinate 25 mg tablet extended release 24 hr 25 mg PO DAILY Qty: 90 3RF atorvastatin 20 mg tablet 20 mg PO DAILY Qty: 90 3RF Breztri Aerosphere 160-9-4.8 mcg/actuation HFA aerosol inhaler 2 inh inhalation BID Qty: 10.7 2RF aspirin 81 MG tablet,delayed release (DR/EC) 81 mg PO DAILY vitamin B complex Tablet 1 tab PO DAILY fluticasone propionate [Flonase Allergy Relief] 50 mcg/actuation spray,suspension 1 spray intranasal DAILY Qty: 16 0RF Rx Instructions: administer into each nostril azithromycin [azithromycin] 250 mg tablet 250 mg PO DIRECTED Qty: 6 0RF Rx Instructions: Take two (2) tablets on day #1, then one (1) tablet day #2 thru #5 benzonatate 100 mg Capsule 100 mg PO Q8H Qty: 20 0RF prednisone [prednisone] 20 mg tablet 20 mg PO BID Qty: 10 0RF Referrals Follow up/Referrals: Luis Turner MD [Primary Care Provider] - See instructions Activity Restrictions/Add. Instructions Additional Instructions/Restrictions: Drink plenty of fluids. Take tylenol or ibuprofen for pain or fever. Take the medications as directed. Follow up with your regular doctor. GO TO THE ER FOR ANY WORSENING SYMPTOMS The cough medication (promethazine dm) will make you drowsy, so don't drive or operate heavy machinery after taking it. Clinical Impressions Clinical Impression: COPD exacerbation, Pharyngitis Stand Alone Forms Stand Alone Forms: Work/School Release Discharge ED Provider: Marino Leon [facility] HPI General Stated complaint: Congestion, headache , sore throat Time Seen by Provider: 01/26/23 13:08 History of Present Illness Provider Complaint:
[2023-01-26 13:10] VITALS: BP 160/94; PULSE 81; RESP 20; TEMP 36.7; O2SAT 98; BMI 38.7
[2023-01-26 14:02] LABS: UTC Strep Screen (Rapid) Negative (Negative)
[2023-01-26 14:10] VITALS: BP 160/94; PULSE 81; RESP 20; TEMP 36.7; O2SAT 98
== END 2023-01-26 14:28 | disposition home or self-care (01) ==
PROVIDERS: Emergency Provider Nurse Practitioner Family; PCP Emergency Medicine
DX: J44.1 Chronic obstructive pulmonary disease with (acute) exacerbation (principal); J02.9 Acute pharyngitis, unspecified; R51.9 Headache, unspecified; F17.210 Nicotine dependence, cigarettes, uncomplicated; Z20.822 Contact with and (suspected) exposure to COVID-19
CPT/HCPCS: 87880; 99212; 99214; C9803; G0463; U0003; U0005

== ENCOUNTER 2023-02-20 19:44 | Emergency (ER) | payer OTHER, SELFPAY ==
[2023-02-20 19:45] VITALS: BP 112/52; PULSE 88; RESP 16; TEMP 36.9; O2SAT 95; BMI 35.5
[2023-02-20 20:30] VITALS: BP 111/59; PULSE 83; O2SAT 93
--- NOTE | 2023-02-20 20:44 | XR_ITS ---
PROCEDURE INFORMATION: Exam: XR Left Ankle Exam date and time: 02/20/2023 8:38 PM Age: 42 years old Clinical indication: Pain; Ankle; Left; Additional info: Rolled her ankle TECHNIQUE: Imaging protocol: Radiologic exam of the left ankle. Views: 3 or more views. COMPARISON: CR TIBIALT XR tibia fibula LT 2V 11/29/2017 1:59 PM FINDINGS: Bones/joints: Normal. Soft tissues: Normal. IMPRESSION: No acute findings.
--- NOTE | 2023-02-20 20:47 | PC.NURSE ---
Pt gone to RAD via wheelchair
--- NOTE | 2023-02-20 20:51 | PC.NURSE ---
Pt back from RAD
--- NOTE | 2023-02-20 20:51 | HMH.EDLOEX ---
Discharge Plan Disposition Patient Disposition: Home, Self-Care Chief Complaint: Extremity Injury, Lower Prescriptions Prescriptions: No Action losartan 100 mg tablet 100 mg PO DAILY Qty: 90 3RF ondansetron 4 mg tablet,disintegrating 4 mg PO Q8H Qty: 20 0RF loperamide 2 mg capsule 2 mg PO Q6H PRN (Reason: loose stool) Qty: 10 0RF ipratropium-albuterol 0.5 mg-3 mg(2.5 mg base)/3 mL solution for nebulization 3 ml INHALATION Q6H PRN (Reason: shortness of breath or wheezing) Qty: 90 6RF cefdinir 300 mg capsule 300 mg PO Q12H 10 Days Qty: 20 0RF prednisone 20 mg tablet 20 mg PO BID Qty: 10 0RF Rx Instructions: administer with food or milk Mucinex 1,200 mg tablet extended release 12hr 1,200 mg PO BID Qty: 20 0RF albuterol sulfate [Proventil HFA] 90 mcg/actuation HFA aerosol inhaler 2 puff inhalation Q6H Qty: 8.5 0RF Rx Instructions: administer with spacer albuterol sulfate 90 mcg/actuation HFA aerosol inhaler 1 inh INHALATION Q6H PRN (Reason: shortness of breath or wheezing) 90 Days Qty: 8.5 3RF spironolactone 50 mg tablet 50 mg PO DAILY Qty: 90 3RF furosemide 80 mg tablet 80 mg PO DAILY Qty: 90 3RF ergocalciferol (vitamin D2) 1,250 mcg (50,000 unit) capsule 1,250 mcg PO WEEKLY Qty: 14 3RF cholecalciferol (vitamin D3) 25 mcg (1,000 unit) capsule 25 mcg PO DAILY Qty: 90 3RF cyanocobalamin (vitamin B-12) 1,000 mcg/mL solution 1,000 mcg IM QMONTH Qty: 100 2RF Rx Instructions: Pt to inject 1ml daily x7 days, then pt to inject 1ml weekly x4 weeks, then pt to inject 1ml monthly. (DME) BD Integra Syringe 3 mL 25 gauge x 1 syringe See Rx Instructions .Route Qty: 50 0RF Rx Instructions: As directed for Vitamin B12 Deficiency metoprolol succinate 25 mg tablet extended release 24 hr 25 mg PO DAILY Qty: 90 3RF atorvastatin 20 mg tablet 20 mg PO DAILY Qty: 90 3RF Breztri Aerosphere 160-9-4.8 mcg/actuation HFA aerosol inhaler 2 inh inhalation BID Qty: 10.7 2RF aspirin 81 MG tablet,delayed release (DR/EC) 81 mg PO DAILY vitamin B complex Tablet 1 tab PO DAILY fluticasone propionate [Flonase Allergy Relief] 50 mcg/actuation spray,suspension 1 spray intranasal DAILY Qty: 16 0RF Rx Instructions: administer into each nostril azithromycin [azithromycin] 250 mg tablet 250 mg PO DIRECTED Qty: 6 0RF Rx Instructions: Take two (2) tablets on day #1, then one (1) tablet day #2 thru #5 benzonatate 100 mg Capsule 100 mg PO Q8H Qty: 20 0RF prednisone [prednisone] 20 mg tablet 20 mg PO BID Qty: 10 0RF promethazine-DM 6.25-15 mg/5 mL Syrup 5 ml PO Q6H PRN (Reason: Cough) Qty: 240 0RF prednisone 10 mg tablet 10 mg PO DIRECTED 9 Days Qty: 21 0RF Rx Instructions: Take 4 tablets daily for 3 days, then take 2 tablets daily for 3 days, then take 1 tablet daily for 3 days, then stop. benzonatate [benzonatate] 100 mg capsule 100 mg PO TIDP PRN (Reason: Cough) Qty: 30 0RF amoxicillin-pot clavulanate 875-125 mg Tablet 1 tab PO Q12H Qty: 20 0RF Referrals Follow up/Referrals: Luis Turner MD [Primary Care Provider] - See instructions Gene Moore JR, MD [Physician] - See instructions Genevieve Antonio DPM [Staff Physician] - See instructions Clinical Impressions Clinical Impression: Ankle sprain and strain, Injury of foot, left Instructions Patient Instructions: Sprain Discharge ED Provider: Yue (ED)Luis Lower Extremity Injury HPI General Chief Complaint: Extremity Injury, Lower Stated Complaint: AO [id number] left foot, home fall Time Seen by Provider: 02/20/23 20:51 Mode of Arrival: Wheelchair Source of Information: Patient and Medical Record Limitations: No Limitations Description of Symptoms (Recalled from ER Triage Doc. by RN): Pt advises she was coming down steps and was almost at the bottom when she rolled her left
--- NOTE | 2023-02-20 20:55 | XR_ITS ---
PROCEDURE INFORMATION: Exam: XR Left Foot Exam date and time: 02/20/2023 8:51 PM Age: 42 years old Clinical indication: Pain; Patient HX: Twisted her left ankle. ; Additional info: Twisted her ankle TECHNIQUE: Imaging protocol: Radiologic exam of the left foot. Views: 3 or more views. COMPARISON: CR XR ANKLE LT MIN 3V 02/20/2023 8:38 PM FINDINGS: Bones/joints: Normal. Soft tissues: Normal. IMPRESSION: No acute findings.
--- NOTE | 2023-02-20 21:38 | PC.NURSE ---
Rounded on patient at this time and updated her on POC and that we were waiting on reads.
[2023-02-20 22:08] VITALS: BP 138/74; PULSE 74; RESP 16; TEMP 36.9; O2SAT 98
== END 2023-02-20 22:10 | disposition home or self-care (01) ==
PROVIDERS: Emergency Provider Emergency Medicine; PCP Emergency Medicine
DX: S93.402A Sprain of unspecified ligament of left ankle, initial encounter (principal); M79.672 Pain in left foot; X50.9XXA Other and unspecified overexertion or strenuous movements or postures, initial encounter
CPT/HCPCS: 73610; 73630; 99283; 99284

== ENCOUNTER 2023-04-28 18:55 | Emergency (ER) | payer OTHER, SELFPAY ==
[2023-04-28 19:05] VITALS: BP 149/80; PULSE 89; RESP 24; TEMP 36.6; O2SAT 95; BMI 39.4
[2023-04-28 19:22] LABS: UTC Strep Screen (Rapid) Negative (Negative)
--- NOTE | 2023-04-28 19:28 | EXP.UTC ---
Discharge Plan Disposition Patient Disposition: Home, Self-Care Condition: Good Prescriptions Prescriptions: New benzonatate 100 mg capsule 100 mg PO TID PRN (Reason: cough) Qty: 30 0RF azithromycin [Zithromax Z-Yo] 250 mg tablet See Rx Instructions .ROUTE .COMPLEX 5 Days Qty: 6 0RF Rx Instructions: For 250 mg dose pack: take 500 mg today (day 1), then 250 mg for 4 days (days 2-5) methylprednisolone [Medrol (Yo)] 4 mg tablets,dose pack See Rx Instructions .Route .COMPLEX 6 Days Qty: 21 0RF Rx Instructions: taper pack; No Action losartan 100 mg tablet 100 mg PO DAILY Qty: 90 3RF ipratropium-albuterol 0.5 mg-3 mg(2.5 mg base)/3 mL solution for nebulization 3 ml INHALATION Q6H PRN (Reason: shortness of breath or wheezing) Qty: 90 6RF albuterol sulfate [Proventil HFA] 90 mcg/actuation HFA aerosol inhaler 2 puff inhalation Q6H Qty: 8.5 0RF Rx Instructions: administer with spacer spironolactone 50 mg tablet 50 mg PO DAILY Qty: 90 3RF furosemide 80 mg tablet 80 mg PO DAILY Qty: 90 3RF ergocalciferol (vitamin D2) 1,250 mcg (50,000 unit) capsule 1,250 mcg PO WEEKLY Qty: 14 3RF cholecalciferol (vitamin D3) 25 mcg (1,000 unit) capsule 25 mcg PO DAILY Qty: 90 3RF cyanocobalamin (vitamin B-12) 1,000 mcg/mL solution 1,000 mcg IM QMONTH Qty: 100 2RF Rx Instructions: Pt to inject 1ml daily x7 days, then pt to inject 1ml weekly x4 weeks, then pt to inject 1ml monthly. (DME) BD Integra Syringe 3 mL 25 gauge x 1 syringe See Rx Instructions .Route Qty: 50 0RF Rx Instructions: As directed for Vitamin B12 Deficiency metoprolol succinate 25 mg tablet extended release 24 hr 25 mg PO DAILY Qty: 90 3RF atorvastatin 20 mg tablet 20 mg PO DAILY Qty: 90 3RF Breztri Aerosphere 160-9-4.8 mcg/actuation HFA aerosol inhaler 2 inh inhalation BID Qty: 10.7 2RF aspirin 81 MG tablet,delayed release (DR/EC) 81 mg PO DAILY vitamin B complex Tablet 1 tab PO DAILY Referrals Follow up/Referrals: Luis Turner MD [Primary Care Provider] - See instructions Activity Restrictions/Add. Instructions Additional Instructions/Restrictions: *Monitor Temp, Over the counter Motrin or Tylenol as directed/as needed Tylenol every 4 hours and Motrin every 6 hours (as long as your family doctor has told you that you can take it) for fever or pain. and straight to ER if unable to lower temp less than 101.0 after medication given *Warm salt water gargles may help to soothe the throat *Throat Lozenges? *Warm fluids like tea with honey may help to soothe the throat? *Sleep elevated *Humidifier/Vaporizer *Flonase 2 sprays in each nostril daily but be aware that it may take 2-3 days before you notice improvement Take medication as prescribed Use Neb treatments as you was prescribed Your throat swab was sent for culture. Those results are typically sent to your primary care. Be sure to follow up in 2-3 days with your family doctor/primary care physician if no improvement so they can review those result and treat if necessary. If you don?t have a primary care doctor, I recommend you get one but in the mean time, you will have to return to a walk in clinic Follow up IMMEDIATELY for new or worsening symptoms or no Noticeable improvement over the next 48-72 hours. 911 for difficulty breathing or swallowing Clinical Impressions Clinical Impression: Pharyngitis Qualifiers: Pharyngitis/tonsillitis etiology: unspecified etiology Qualified Code(s): J02.9 - Acute pharyngitis, unspecified Stand Alone Forms Stand Alone Forms: Work/School Release Instructions Patient Instructions: Sore Throat, Cough, DI for Sinusitis Discharge ED Provider: Jane Aragon [facility] [place] HPI General Stated complaint: sore throat, CESPEDES, Mode of Arrival: Ambulatory Source of Information: Patient Limitations: No Limitations Time Seen by Prov
[2023-04-28 19:34] VITALS: BP 149/80; PULSE 89; RESP 24; TEMP 36.6; O2SAT 95
== END 2023-04-28 20:00 | disposition home or self-care (01) ==
PROVIDERS: Emergency Provider Nurse Practitioner; PCP Emergency Medicine
DX: J02.9 Acute pharyngitis, unspecified (principal); J01.90 Acute sinusitis, unspecified; F17.210 Nicotine dependence, cigarettes, uncomplicated; J44.9 Chronic obstructive pulmonary disease, unspecified; I50.30 Unspecified diastolic (congestive) heart failure; E78.5 Hyperlipidemia, unspecified; Z68.39 Body mass index [BMI] 39.0-39.9, adult; G47.33 Obstructive sleep apnea (adult) (pediatric); I11.0 Hypertensive heart disease with heart failure
CPT/HCPCS: 87880; 96372; 99212; 99214; G0463

== ENCOUNTER 2023-06-19 16:50 | Emergency (ER) | payer OTHER, SELFPAY ==
--- NOTE | 2023-06-19 16:49 | ECG_ITS ---
APPROVED REPORT Machine Maintenance Supervisor: Conclusion 1. SINUS RHYTHM 2. MINIMAL ST DEPRESSION [0.025+ mV ST DEPRESSION] 3. BORDERLINE ECG 4. UNCONFIRMED REPORT Electronically signed by : Natty Irvin, 06/23/2023 12:28:35
[2023-06-19 16:51] VITALS: BP 160/103; PULSE 92; RESP 18; TEMP 36.7; O2SAT 96; BMI 39.5
[2023-06-19 17:01] VITALS: BP 133/92; PULSE 79; O2SAT 95
--- NOTE | 2023-06-19 17:29 | HMH.EDGENADL ---
Discharge Plan Disposition Patient Disposition: Home, Self-Care Prescriptions Prescriptions: New benzonatate 100 mg capsule 100 mg PO TID PRN (Reason: cough) 5 Days Qty: 20 0RF albuterol sulfate 90 mcg/actuation HFA aerosol inhaler 4 inh inhalation Q4H PRN (Reason: shortness of breath or wheezing) Qty: 8.5 0RF Rx Instructions: 4 puffs every 4 hours for 48 hours then as needed for shortness of breath or wheezing following doxycycline hyclate 100 mg capsule 100 mg PO BID 10 Days Qty: 20 0RF prednisone 50 mg tablet 50 mg PO DAILY 5 Days Qty: 5 0RF Rx Instructions: Please begin 1 day after ED visit No Action losartan 100 mg tablet 100 mg PO DAILY Qty: 90 3RF ipratropium-albuterol 0.5 mg-3 mg(2.5 mg base)/3 mL solution for nebulization 3 ml INHALATION Q6H PRN (Reason: shortness of breath or wheezing) Qty: 90 6RF albuterol sulfate [Proventil HFA] 90 mcg/actuation HFA aerosol inhaler 2 puff inhalation Q6H Qty: 8.5 0RF Rx Instructions: administer with spacer spironolactone 50 mg tablet 50 mg PO DAILY Qty: 90 3RF furosemide 80 mg tablet 80 mg PO DAILY Qty: 90 3RF ergocalciferol (vitamin D2) 1,250 mcg (50,000 unit) capsule 1,250 mcg PO WEEKLY Qty: 14 3RF cholecalciferol (vitamin D3) 25 mcg (1,000 unit) capsule 25 mcg PO DAILY Qty: 90 3RF cyanocobalamin (vitamin B-12) 1,000 mcg/mL solution 1,000 mcg IM QMONTH Qty: 100 2RF Rx Instructions: Pt to inject 1ml daily x7 days, then pt to inject 1ml weekly x4 weeks, then pt to inject 1ml monthly. (DME) BD Integra Syringe 3 mL 25 gauge x 1 syringe See Rx Instructions .Route Qty: 50 0RF Rx Instructions: As directed for Vitamin B12 Deficiency metoprolol succinate 25 mg tablet extended release 24 hr 25 mg PO DAILY Qty: 90 3RF atorvastatin 20 mg tablet 20 mg PO DAILY Qty: 90 3RF Breztri Aerosphere 160-9-4.8 mcg/actuation HFA aerosol inhaler 2 inh inhalation BID Qty: 10.7 2RF aspirin 81 MG tablet,delayed release (DR/EC) 81 mg PO DAILY vitamin B complex Tablet 1 tab PO DAILY Referrals Follow up/Referrals: Provider,Referral, [Primary Care Provider] - See instructions Clinical Impressions Clinical Impression: Acute exacerbation of chronic obstructive pulmonary disease Discharge ED Provider: Sofia Ba General Adult HPI General Chief complaint: Shortness of Breath/Dyspnea Stated complaint: Shortness of Breath Time Seen by Provider: 06/19/23 17:22 Mode of Arrival: Ambulatory Source of Information: Patient Limitations: No Limitations Description of Symptoms (Recalled from ER Triage Doc. by RN): Patient states she was seen at Dr. Turner's office for shortness of breath when they did an ekg and told her she needed to proceed to the emergency room for further evaluation. Patient presents stating she has been short of breath for 3 days now. Denies any chest pain at this time. History of Present Illness HPI narrative: Patient is a 42-year-old female with 4-day history of increasing cough wheezing shortness of breath and sputum production presented to her primary care physician today they did an EKG told her that it was abnormal and sent her to the emergency department. She denies any exertional chest pain no diaphoresis no radiation of any type of chest pain and states that she just wanted medications to go home. No history of [place] acute coronary syndrome etc. No fevers or chills. She has been fatigued over the last several days which is her primary reason for going to the doctor today. Related Data Home Medications Medication Instructions Recorded Confirmed aspirin 81 mg tablet,delayed 81 mg PO DAILY heart health 04/26/21 06/19/23 release vitamin B complex 1 tab PO DAILY Supplement 09/13/22 06/19/23 Previous Rx's Medication Instructions Recorded losartan 100 mg tablet 100 mg PO DAILY High blood 12/28/21 pressure #90 tabs ipratropium
[2023-06-19 17:36] VITALS: BP 153/93; PULSE 90; RESP 18; TEMP 36.7; O2SAT 96
== END 2023-06-19 17:37 | disposition home or self-care (01) ==
PROVIDERS: Emergency Provider Student in an Organized Health Care Education/Training Program; PCP Emergency Medicine
DX: J44.1 Chronic obstructive pulmonary disease with (acute) exacerbation (principal); I20.9 Angina pectoris, unspecified; G47.33 Obstructive sleep apnea (adult) (pediatric); F17.210 Nicotine dependence, cigarettes, uncomplicated
CPT/HCPCS: 93005; 99284

== ENCOUNTER → 2023-10-09 14:54 | Outpatient (CLI) | payer OTHER, SELFPAY ==
[2023-10-09 18:35] LABS: Influenza A, PCR Not Detected (NotDetected); Influenza B, PCR Not Detected (NotDetected)
[2023-10-09 23:23] LABS: Coronavirus 19, PCR Detected (NotDetected)
== END ==
PROVIDERS: PCP Internal Medicine; Visit Provider Internal Medicine
DX: R06.02 Shortness of breath (principal); U07.1 COVID-19
CPT/HCPCS: 87636

== ENCOUNTER 2024-01-19 19:01 | Outpatient (CLI) | payer OTHER, SELFPAY ==
[2024-01-19 18:23] LABS: Basophils # 0.1 K/mm3 (0-0.2); Basophils % 1.5 % (0.1-2.0); Eosinophils # 0.3 K/mm3 (0.0-0.4); Eosinophils % 3.1 % (0.1-12.0); Hematocrit 52.7 % (37.0-47.0); Hemoglobin 16.9 g/dL (12.2-16.2); Lymphocytes # 2.3 K/mm3 (0.7-4.5); Lymphocytes % 23.9 % (10-50); Mean Corpuscular HGB Conc 32.1 g/dL (31.8-35.4); Mean Corpuscular Hemoglobin 33.2 pg (27.0-31.2); Mean Corpuscular Volume 103.6 fl (81-99); Mean Platelet Volume 12.1 fl (7.4-10.4); Monocytes # 0.6 K/mm3 (0.1-1.0); Monocytes % 6.1 % (1.7-9.3); Neutrophils # 6.3 K/mm3 (1.8-7.8); Neutrophils % 65.4 % (37.0-80.0); Platelet Count 310 K/mm3 (142-424); Red Blood Count 5.09 M/mm3 (4.20-5.40); Red Cell Distribution Width 13.5 % (11.5-17.5); White Blood Count 9.7 K/mm3 (4.8-10.8)
[2024-01-19 18:49] LABS: Alanine Aminotransferase 41 U/L (12-78); Albumin Level 4.2 g/dl (3.5-5.0); Albumin/Globulin Ratio 1.3 (1.1-1.8); Alkaline Phosphatase 89 U/L (38-126); Anion Gap 11.6 mEq/L (5-15); Aspartate Amino Transferase 32 U/L (14-36); Bilirubin,Total 0.4 mg/dl (0.2-1.3); Blood Urea Nitrogen 9 mg/dl (7-17); Calcium 9.9 mg/dl (8.4-10.2); Carbon Dioxide 26 mmol/L (22.0-30.0); Chloride 105 mmol/L (98-107); Chol/HDL Ratio 6.5 (1-3.5); Cholesterol 233 mg/dl (140-200); Estimated Glomerular Filt Rate 91 ml/min (>60); GFR (African American) 110 ML/MIN (>60); Globulin 3.2 g/dL (1.3-3.2); Glucose 99 mg/dl (74-100); HDL Cholesterol 36 mg/dl (40-60); Potassium 4.6 mmoL/L (3.5-5.1); Sodium 138 mmol/L (136-145); Total Protein,Serum 7.4 g/dl (6.3-8.2); Triglycerides 244 mg/dl (30-150); VLDL Cholesterol 49 mg/dL (0-40)
[2024-01-19 19:00] LABS: Direct LDL Cholesterol 132.12 mg/dL (100-129)
[2024-01-19 19:06] LABS: 25-OH Vitamin D, Total 16.5 ng/mL (30-100)
[2024-01-19 19:20] LABS: Thyroid Stimulating Hormone 0.87 uIU/mL (0.465-4.68)
[2024-01-19 20:29] LABS: Hemoglobin A1C 5.6 % (4.0-6.0)
== END 2024-01-19 23:59 ==
LOC: LAB.DROPOF 19:02
PROVIDERS: PCP Family Medicine; Visit Provider Family Medicine
DX: R73.03 Prediabetes (principal); E55.9 Vitamin D deficiency, unspecified; J06.9 Acute upper respiratory infection, unspecified; H60.91 Unspecified otitis externa, right ear; H66.91 Otitis media, unspecified, right ear; Z79.899 Other long term (current) drug therapy
CPT/HCPCS: 80053; 80061; 82306; 83036; 84443; 85025

== ENCOUNTER 2024-03-15 17:48 | Outpatient (CLI) | payer OTHER, SELFPAY | END 2024-03-15 23:59 | disposition home or self-care (01) | LOC: LAB.DROPOF 17:49 | PROVIDERS: Visit Provider Family Medicine | DX: R51.9 Headache, unspecified (principal); R06.2 Wheezing; R05.9 Cough, unspecified; R09.89 Other specified symptoms and signs involving the circulatory and respiratory systems; R50.9 Fever, unspecified; R19.7 Diarrhea, unspecified | CPT/HCPCS: 87635 ==

== ENCOUNTER 2024-05-03 09:16 | Emergency (ER) | payer OTHER, SELFPAY ==
--- NOTE | 2024-05-03 09:26 | ED_ITS ---
Discharge Plan Disposition Patient Disposition: Home, Self-Care Condition: Good Prescriptions Prescriptions: New doxycycline hyclate 100 mg tablet 100 mg PO BID 10 Days Qty: 20 0RF prednisone 20 mg tablet 20 mg PO BID Qty: 10 0RF furosemide 20 mg tablet 20 mg PO DAILY Qty: 10 0RF No Action losartan 100 mg tablet 100 mg PO DAILY Qty: 90 3RF varenicline [Chantix Starting Month Box] 0.5 mg (11)- 1 mg (42) tablets,dose pack See Rx Instructions PO PER PKG DIR Qty: 53 0RF Rx Instructions: PO PER PKG DIR fluticasone propionate [Flonase Allergy Relief] 50 mcg/actuation spray,suspension 1 spray intranasal DAILY Qty: 16 2RF Rx Instructions: administer into each nostril Breztri Aerosphere 160-9-4.8 mcg/actuation HFA aerosol inhaler 2 inh inhalation BID Qty: 10.7 2RF amoxicillin 500 mg capsule 500 mg PO BID 10 Days Qty: 20 0RF methylprednisolone [Medrol (Yo)] 4 mg tablets,dose pack See Rx Instructions PO PER PKG DIR Qty: 21 0RF Rx Instructions: PO PER PKG DIR ipratropium-albuterol 0.5 mg-3 mg(2.5 mg base)/3 mL solution for nebulization 3 ml INHALATION Q6H PRN (Reason: shortness of breath or wheezing) Qty: 90 6RF spironolactone 50 mg tablet 50 mg PO DAILY Qty: 90 3RF (DME) BD Integra Syringe 3 mL 25 gauge x 1 syringe See Rx Instructions .Route Qty: 50 0RF Rx Instructions: As directed for Vitamin B12 Deficiency metoprolol succinate 25 mg tablet extended release 24 hr 25 mg PO DAILY Qty: 90 3RF atorvastatin 20 mg tablet 20 mg PO DAILY Qty: 90 3RF albuterol sulfate [Ventolin HFA] 90 mcg/actuation HFA aerosol inhaler See Rx Instructions .ROUTE .COMPLEX Qty: 18 3RF Dose Instruction: INHALE 2 PUFFS BY MOUTH EVERY 6 HOURS Rx Instructions: INHALE 2 PUFFS BY MOUTH EVERY 6 HOURS ergocalciferol (vitamin D2) 1,250 mcg (50,000 unit) capsule 1,250 mcg PO WEEKLY Qty: 14 3RF aspirin 81 MG tablet,delayed release (DR/EC) 81 mg PO DAILY vitamin B complex Tablet 1 tab PO DAILY Referrals Follow up/Referrals: Kevin Crowder DO [Primary Care Provider] - See instructions Activity Restrictions/Add. Instructions Additional Instructions/Restrictions: TTake all meds as precribed Return if not improving Follow up with Dr Crowder next week Clinical Impressions Clinical Impression: Acute exacerbation of chronic obstructive pulmonary disease Instructions Patient Instructions: DI for Chronic Obstructive Pulmonary Disease Discharge ED Provider: Mayda Johnson [facility] [place] HPI General Stated complaint: SOA, COPD Time Seen by Provider: 05/03/24 10:06 History of Present Illness Provider Complaint: Cough, congestion, SOA X 3 weeks. Worse past week. Using inhalers, nebs with some improvement. Cough productive. No fever. Some edema. Onset (ago): week(s) (3) Location: chest Relieving factors: none Exacerbating factors: none Associated symptoms: denies other symptoms Treatments prior to arrival: other (inhalers) Related Data Home Medications Medication Instructions Recorded Confirmed aspirin 81 mg tablet,delayed 81 mg PO DAILY heart health 04/26/21 03/15/24 release vitamin B complex 1 tab PO DAILY Supplement 09/13/22 03/15/24 Previous Rx's Medication Instructions Recorded losartan 100 mg tablet 100 mg PO DAILY High blood 12/28/21 pressure #90 tabs ipratropium 0.5 mg-albuterol 3 mg 3 ml inhalation Q6H PRN shortness 01/12/22 (2.5 mg base)/3 mL nebulization of breath or wheezing #90 mL soln spironolactone 50 mg tablet 50 mg PO DAILY Fluid #90 tabs 09/30/22 syringe with needle, safety 3 mL #50 ea 11/09/22 25 gauge x 1 (BD Integra Syringe) metoprolol succinate 25 mg 25 mg PO DAILY Hypertension #90 01/04/23 tablet,extended release 24 hr tabs fluticasone propionate 50 1 spray intranasal DAILY #16 grams 01/19/24 mcg/actuation nasal spray,suspension (Flonase Allergy Relief) varenicline 0.5 mg (11)-1 mg (42) See Rx Instructions PO PER PKG DIR 01/19/24 tablets in a dose pack (Chantix #53 tabs Starting Month Box) albuterol sulfate 90 mcg/actuation See Rx Instructions .Route 01/22/24 aerosol inhaler (Ventolin HFA) .COMPLEX #18 grams atorvastatin 20 mg tablet 20 mg PO DAILY Cholesterol #90 tabs 01/22/24 ergocalciferol (vitamin D2) 1,250 1,250 mcg PO WEEKLY #14 caps 01/22/24 mcg (50,000 unit) capsule amoxicillin 500 mg capsule 500 mg PO BID 10 days #20 caps 03/15/24 budesonide 160 mcg-glycopyr 9 2 inh inhalation BID #10.7 grams 03/15/24 mcg-formot 4.8 mcg/actuation HFA inhaler (Breztri Aerosphere) methylprednisolone 4 mg tablets in See Rx Instructions PO PER PKG DIR 03/18/24 a dose pack (Medrol (Yo)) #21 tabs doxycycline hyclate 100 mg tablet 100 mg PO BID 10 days #20 tabs 05/03/24 furosemide 20 mg tablet 20 mg PO DAILY #10 tabs 05/03/24 prednisone 20 mg tablet 20 mg PO BID #10 tabs 05/03/24 Allergies Allergy/AdvReac Type Severity Reaction Status Date / Time No Known Allergies Allergy Verified 05/03/24 09:37 [facility] Disclaimer: The information contained in this section may have been updated after the patient was seen, as this information can be updated by other users. Medical History (Updated 05/03/24 @ 10:13 by MARIANELA Love) Pneumonitis Injury of foot, left Ankle sprain and strain Pharyngitis Right otitis media Right otitis externa EBONIE (obstructive sleep apnea) Daytime somnolence Diastolic dysfunction Abnormal cardiovascular stress test Atypical angina SIRS (systemic inflammatory response syndrome) Dyspnea Family History Other No significant family history Social History Smoking Status: Current every day smoker tobacco type: cigarettes packs per day: 1 second hand exposure: No alcohol intake: current alcohol intake frequency: holidays/special occasions only substance use type: marijuana current occupational status: employed and unemployed Travel in the last 8 weeks: None household members: spouse housing: house current occupational exposures/hazards: No caffeine: Yes ROS Obtained: Yes All systems reviewed & no additional complaints except as documented Respiratory Respiratory: Reports chest congestion, Reports cough and Reports wheezing Allergic/Immunologic Allergic/Immunologic: Reports wheezing Physical Exam General General appearance: alert and in no apparent distress Head Head exam: atraumatic, normocephalic and normal inspection Eye Eye exam: Present normal appearance, PERRL and EOMI ENT ENT exam: Present normal exam, normal oropharynx, mucous membranes moist, TM's normal bilaterally and normal external ear exam Neck Neck exam: Present normal inspection, full ROM and trachea midline; Absent meningismus or lymphadenopathy Chest Chest inspection: Present normal inspection and symmetric chest wall rise; Absent tenderness Respiratory Respiratory exam: Present wheezes; Absent respiratory distress Expanded Respiratory Exam Location: Upper: wheezes, rales, rhonchi and decreased breath sounds and Lower: wheezes, rales, rhonchi and decreased breath sounds Cardiovascular Cardiovascular exam: Present regular rate and normal rhythm; Absent JVD Abdominal Exam Abdominal exam: Present soft and normal bowel sounds; Absent distention, tenderness or guarding Extremities Exam Extremities exam: Present normal inspection, full ROM and normal capillary refill; Absent calf tenderness Back Exam Back exam: Present normal inspection; Absent tenderness Neurological Exam Neurological exam: Present alert and oriented X3 Psychiatric Psychiatric exam: Present normal affect and normal mood Skin Skin exam: Present warm, dry, intact and normal color Lymphatic Lymphatic Findings: no adenopathy Medical Decision Making Christian Inquiry Pt receiving controlled substance: No Radiology Data #1: Image(s): Chest Image Reviewed: Yes I reviewed the patient's radiology results Preliminary Findings: Normal/NAD
--- NOTE | 2024-05-03 09:28 | XR_ITS ---
FINAL REPORT CLINICAL HISTORY: Shortness of breath COMPARISON: 01/05/2023 FINDINGS: Two views of the chest were obtained. The heart size and pulmonary vascularity are within normal limits. The mediastinum is normal. No acute pulmonary abnormality is identified. There is no pneumothorax. The bony thorax is intact. IMPRESSION: No active cardiopulmonary disease. Reviewed, Interpreted and Dictated by Asif Crum III, MD Transcribed by Disha Barakat Authenticated and [facility]
[2024-05-03 09:30] VITALS: BP 165/87; PULSE 72; RESP 20; TEMP 36.8; O2SAT 94; BMI 37.1
[2024-05-03 10:20] VITALS: BP 166/89; PULSE 99; RESP 18; TEMP 36.8; O2SAT 100
== END 2024-05-03 10:20 | disposition home or self-care (01) ==
PROVIDERS: Emergency Provider Physician Assistant; PCP Internal Medicine
DX: J44.1 Chronic obstructive pulmonary disease with (acute) exacerbation (principal); R06.02 Shortness of breath; R06.2 Wheezing; R05.8 Other specified cough; F17.210 Nicotine dependence, cigarettes, uncomplicated
CPT/HCPCS: 71046; 99212; 99214; G0463

== ENCOUNTER 2024-11-01 10:50 | Emergency (ER) | payer OTHER, SELFPAY ==
[2024-11-01 11:54] VITALS: BP 112/88; PULSE 90; RESP 22; TEMP 36.8; O2SAT 94; BMI 37.5
--- NOTE | 2024-11-01 11:56 | EXP.UTC ---
Discharge Plan Disposition Patient Disposition: Home, Self-Care Condition: Good Prescriptions Prescriptions: New prednisone 10 mg tablet 10 mg PO DIRECTED 9 Days Qty: 21 0RF Rx Instructions: Take 4 tablets daily for 3 days, then take 2 tablets daily for 3 days, then take 1 tablet daily for 3 days, then stop. benzonatate 100 mg capsule 100 mg PO TIDP PRN (Reason: Cough) Qty: 30 0RF amoxicillin-pot clavulanate 875-125 mg Tablet 1 tab PO Q12H Qty: 20 0RF No Action losartan 100 mg tablet 100 mg PO DAILY Qty: 90 3RF varenicline [Chantix Starting Month Box] 0.5 mg (11)- 1 mg (42) tablets,dose pack See Rx Instructions PO PER PKG DIR Qty: 53 0RF Rx Instructions: PO PER PKG DIR fluticasone propionate [Flonase Allergy Relief] 50 mcg/actuation spray,suspension 1 spray intranasal DAILY Qty: 16 2RF Rx Instructions: administer into each nostril Breztri Aerosphere 160-9-4.8 mcg/actuation HFA aerosol inhaler 2 inh inhalation BID Qty: 10.7 2RF amoxicillin 500 mg capsule 500 mg PO BID 10 Days Qty: 20 0RF methylprednisolone [Medrol (Yo)] 4 mg tablets,dose pack See Rx Instructions PO PER PKG DIR Qty: 21 0RF Rx Instructions: PO PER PKG DIR ipratropium-albuterol 0.5 mg-3 mg(2.5 mg base)/3 mL solution for nebulization 3 ml INHALATION Q6H PRN (Reason: shortness of breath or wheezing) Qty: 90 6RF spironolactone 50 mg tablet 50 mg PO DAILY Qty: 90 3RF (DME) BD Integra Syringe 3 mL 25 gauge x 1 syringe See Rx Instructions .Route Qty: 50 0RF Rx Instructions: As directed for Vitamin B12 Deficiency metoprolol succinate 25 mg tablet extended release 24 hr 25 mg PO DAILY Qty: 90 3RF atorvastatin 20 mg tablet 20 mg PO DAILY Qty: 90 3RF ergocalciferol (vitamin D2) 1,250 mcg (50,000 unit) capsule 1,250 mcg PO WEEKLY Qty: 14 3RF albuterol sulfate 90 mcg/actuation HFA aerosol inhaler See Rx Instructions .ROUTE .COMPLEX Qty: 18 2RF Dose Instruction: INHALE 2 PUFFS BY MOUTH EVERY 6 HOURS Rx Instructions: INHALE 2 PUFFS BY MOUTH EVERY 6 HOURS aspirin 81 MG tablet,delayed release (DR/EC) 81 mg PO DAILY vitamin B complex Tablet 1 tab PO DAILY doxycycline hyclate 100 mg tablet 100 mg PO BID 10 Days Qty: 20 0RF prednisone 20 mg tablet 20 mg PO BID Qty: 10 0RF furosemide 20 mg tablet 20 mg PO DAILY Qty: 10 0RF Referrals Follow up/Referrals: Marge Zuluaga APRN [Primary Care Provider] - See instructions Activity Restrictions/Add. Instructions Additional Instructions/Restrictions: Drink plenty of fluids. Take tylenol or ibuprofen for pain or fever. Take the medications as directed. Follow up with your regular doctor. GO TO THE ER FOR ANY WORSENING SYMPTOMS Clinical Impressions Clinical Impression: Asthma exacerbation Stand Alone Forms Stand Alone Forms: Work/School Release Instructions Patient Instructions: Asthma -- Adult, DI for Asthma -- Adult Print Language Print Language: Upper Sorbian Discharge ED Provider: Marino Leon [facility] General Stated complaint: cough, SOA, diarrhea, fever, B/A, chills Mode of Arrival: Ambulatory Source of Information: Patient Time Seen by Provider: 11/01/24 11:51 Description of Symptoms (Recalled from Triage Doc. by RN): BODY ACHES, PERSISTANT COUGH, WHEEZING, FEVERS, EXP TO RSV AND PNA HEENT Symptoms (Recalled from RN notes): No Resp Symptoms (Recalled from RN notes): Yes Skin Symptoms (Recalled from RN notes): No MS Symptoms (Recalled from RN notes): No Functional Status (Recalled from RN notes): WNL Related Data Home Medications ?Medication ?Instructions ?Recorded ?Confirmed aspirin 81 mg tablet,delayed 81 mg PO DAILY heart health 04/26/21 03/15/24 release vitamin B complex 1 tab PO DAILY Supplement 09/13/22 03/15/24 Previous Rx's ?Medication ?Instructions ?Recorded losartan 100 mg tablet 100 mg PO DAILY High blood 12/28/21 pressure #90 tabs ipratropium 0.5 mg-albuterol 3 mg 3 ml inhalation Q6H PRN shortness 01/12/22 (2.5 mg base)/3 mL nebulization of breath or wheezing #90 mL soln spironolactone 50 mg tablet 50 mg PO DAILY Fluid #90 tabs 09/30/22 syringe with needle, safety 3 mL #50 ea 11/09/22 25 gauge x 1 (BD Integra Syringe) metoprolol succinate 25 mg 25 mg PO DAILY Hypertension #90 01/04/23 tablet,extended release 24 hr tabs fluticasone propionate 50 1 spray intranasal DAILY #16 grams 01/19/24 mcg/actuation nasal spray,suspension (Flonase Allergy Relief) varenicline 0.5 mg (11)-1 mg (42) See Rx Instructions PO PER PKG DIR 01/19/24 tablets in a dose pack (Chantix #53 tabs Starting Month Box) atorvastatin 20 mg tablet 20 mg PO DAILY Cholesterol #90 tabs 01/22/24 ergocalciferol (vitamin D2) 1,250 1,250 mcg PO WEEKLY #14 caps 01/22/24 mcg (50,000 unit) capsule amoxicillin 500 mg capsule 500 mg PO BID 10 days #20 caps 03/15/24 budesonide 160 mcg-glycopyr 9 2 inh inhalation BID #10.7 grams 03/15/24 mcg-formot 4.8 mcg/actuation HFA inhaler (Breztri Aerosphere) methylprednisolone 4 mg tablets in See Rx Instructions PO PER PKG DIR 03/18/24 a dose pack (Medrol (Yo)) #21 tabs doxycycline hyclate 100 mg tablet 100 mg PO BID 10 days #20 tabs 05/03/24 furosemide 20 mg tablet 20 mg PO DAILY #10 tabs 05/03/24 prednisone 20 mg tablet 20 mg PO BID #10 tabs 05/03/24 albuterol sulfate 90 mcg/actuation See Rx Instructions .Route 06/28/24 aerosol inhaler .COMPLEX #18 grams amoxicillin 875 mg-potassium 1 tab PO Q12H #20 tabs 11/01/24 clavulanate 125 mg tablet benzonatate 100 mg capsule 100 mg PO TIDP PRN Cough #30 caps 11/01/24 prednisone 10 mg tablet 10 mg PO DIRECTED 9 days #21 11/01/24 tabs Allergies Allergy/AdvReac Type Severity Reaction Status Date / Time No Known Allergies Allergy Verified 05/03/24 09:37 Worker's Comp Is this a Worker's Comp case?: No PFS PFS Disclaimer: The information contained in this section may have been updated after the patient was seen, as this information can be updated by other users. Medical History (Updated 11/01/24 @ 12:37 by Marino Leon APRN) Pneumonitis Injury of foot, left Ankle sprain and strain Pharyngitis Right otitis media Right otitis externa EBONIE (obstructive sleep apnea) Daytime somnolence Diastolic dysfunction Abnormal cardiovascular stress test Atypical angina SIRS (systemic inflammatory response syndrome) Dyspnea Family History Other No significant family history Social History Smoking Status: Current every day smoker tobacco type: cigarettes packs per day: 1 second hand exposure: No alcohol intake: current alcohol intake frequency: holidays/special occasions only substance use type: marijuana current occupational status: employed and unemployed Travel in the last 8 weeks: None household members: spouse housing: house current occupational exposures/hazards: No caffeine: Yes Have you lived/traveled outside [place] in past 30 days?: No Contact w/someone who lives/traveled outside [place] past 30 days?: No Exposure to someone with infectious disease in past 14 days?: No Do you have a fever (greater than 100.4 F or 38 C)?: No Have you tested positive for COVID-19: No Exposed to someone with COVID-19 in past 14 days?: No Do you have a sore throat?: No Do you have a cough?: Yes Do you have any weakness?: Yes Do you have any diarrhea?: Yes Are you experiencing any unusual bleeding?: No Do you have any muscle aches/pain?: Yes Do you have any abdominal pain?: Yes Are you experiencing loss of taste or smell?: No ROS Obtained: Yes All systems reviewed & no additional complaints except as documented Constitutional Constitutional: Reports poor appetite Eyes Eyes: Reports system reviewed and no additional complaints, except as documented ENT Ears, Nose, Mouth, and Throat: Reports as per HPI Cardiovascular Cardiovascular: Reports system reviewed and no additional complaints, except as documented and Denies chest pain Respiratory Respiratory: Denies shortness of breath, Denies chest congestion, Reports cough, Denies stridor and Denies wheezing Gastrointestinal Gastrointestingal: Reports system reviewed and no additional complaints, except as documented; Denies abdominal pain, diarrhea or vomiting Musculoskeletal Musculoskeletal: Reports system reviewed and no additional complaints, except as documented and Denies arthralgias Integumentary/Breasts Skin/Breast: Reports system reviewed and no additional complaints, except as documented and Denies rash Neurologic Neurologic: Denies paresthesias Allergic/Immunologic Allergic/Immunologic: Denies wheezing Physical Exam General General appearance: alert and in no apparent distress Head Head exam: atraumatic, normocephalic and normal inspection Eye Eye exam: Present normal appearance, PERRL and EOMI ENT ENT exam: Present normal exam, normal oropharynx, mucous membranes moist, TM's normal bilaterally and normal external ear exam Neck Neck exam: Present normal inspection, full ROM and trachea midline; Absent meningismus or lymphadenopathy Chest Chest inspection: Present normal inspection and symmetric chest wall rise; Absent tenderness Respiratory Respiratory exam: Present normal lung sounds bilaterally; Absent respiratory distress Cardiovascular Cardiovascular exam: Present regular rate and normal rhythm; Absent JVD Abdominal Exam Abdominal exam: Present soft and normal bowel sounds; Absent distention, tenderness or guarding Extremities Exam Extremities exam: Present normal inspection, full ROM and normal capillary refill; Absent calf tenderness Back Exam Back exam: Present normal inspection; Absent tenderness Neurological Exam Neurological exam: Present alert and oriented X3 Psychiatric Psychiatric exam: Present normal affect and normal mood Skin Skin exam: Present warm, dry, intact and normal color Lymphatic Lymphatic Findings: no adenopathy Medical Decision Making Medical Records Medical records reviewed: No I reviewed the patient's medical records. Screening: Per USPSTF and CDC recommendations, given the prevalence of disease in our region, it is our hospital?s policy to screen for HIV and viral Hepatitis for all patients aged 18 and over and those with ongoing risk factors. Christian Inquiry Pt receiving controlled substance: No Vital Signs: 11/01/24 11:54 Temperature 98.3 F Temperature Source Oral Pulse Rate [Left Brachial] 90 Respiratory Rate 22 Blood Pressure [Left Arm] 112/88 Blood Pressure Mean [Left Arm] 96 02 Sat by Pulse Oximetry 94 L
[2024-11-01 12:07] LABS: UTC Influenza A Antigen Negative (Negative)
[2024-11-01 12:08] LABS: UTC Influenza B Antigen Negative (Negative)
[2024-11-01 12:38] VITALS: BP 112/88; PULSE 90; RESP 22; TEMP 36.8
== END 2024-11-01 12:42 | disposition home or self-care (01) ==
PROVIDERS: Emergency Provider Nurse Practitioner Family; PCP Family Medicine
DX: J45.901 Unspecified asthma with (acute) exacerbation (principal); R06.02 Shortness of breath; R05.9 Cough, unspecified; R50.9 Fever, unspecified; R19.7 Diarrhea, unspecified; M54.9 Dorsalgia, unspecified
CPT/HCPCS: 87635; 87804; 99212; G0381

== ENCOUNTER 2025-03-29 13:16 | Emergency (ER) | payer OTHER, SELFPAY ==
[2025-03-29] VITALS (9 sets, daily range): BP systolic 119–148; BP diastolic 78–94; PULSE 89–104; RESP 14–16; TEMP 36.6–36.8; O2SAT 92–97; BMI 37.1
[2025-03-29 13:26] LABS: Microscopic, Urine URINE MICROSCOPIC (MICROSCOPIC)
--- NOTE | 2025-03-29 13:28 | CT_ITS ---
PROCEDURE INFORMATION: Exam: CT Abdomen And Pelvis With Contrast Exam date and time: 03/29/2025 2:16 PM Age: 44 years old Clinical indication: Abdominal pain TECHNIQUE: Imaging protocol: Computed tomography of the abdomen and pelvis with contrast. Radiation optimization: All CT scans at this facility use at least one of these dose optimization techniques: automated exposure control; mA and/or kV adjustment per patient size (includes targeted exams where dose is matched to clinical indication); or iterative reconstruction. Contrast material: ISOVUE; Contrast volume: 75 ml; Contrast route: IV; COMPARISON: CT ABDOMEN PELVIS W CON 01/05/2023 2:51 AM FINDINGS: Lungs: Lung bases are unremarkable. Liver: Hepatic steatosis noted. Mild nodular hepatic contours. Gallbladder and biliary ducts: There has been a cholecystectomy. Pancreas: No peripancreatic fluid stranding. No main pancreatic ductal dilation. Spleen: No splenomegaly. Adrenal glands: The adrenal glands are normal. Kidneys and ureters: Nephrograms are symmetric. No nephrolithiasis or hydroureteronephrosis on either side. No solid lesions Stomach and bowel: Moderate fecal burden in the rectosigmoid junction. No bowel wall thickening or distention. Appendix: No evidence of appendicitis. Intraperitoneal space: There is no evidence of free intraperitoneal or pelvic fluid. Vasculature: Portal vein is patent. Aorta is nonaneurysmal. Lymph nodes: No evidence of retroperitoneal or mesenteric lymphadenopathy. No evidence of retroperitoneal or mesenteric lymphadenopathy. Urinary bladder: Urinary bladder is unremarkable. Urinary bladder is unremarkable. Reproductive: Unremarkable as visualized. Bones/joints: No acute osseous abnormality. Soft tissues: Unremarkable. IMPRESSION: 1. Moderate fecal burden in the rectosigmoid junction. Otherwise, no acute abnormality in the abdomen or pelvis 2. Hepatic steatosis. Mild nodular liver contours
[2025-03-29] MEDS: FAMOTIDINE 20MG/2ML VIAL 20 MG IV (13:34)
[2025-03-29] MEDS: ONDANSETRON 4MG/2ML VIAL 4 MG IV (13:34)
[2025-03-29] MEDS: MORPHINE 4MG/ML SYRINGE 4 MG IV (13:35)
--- NOTE | 2025-03-29 13:37 | ECG_ITS ---
APPROVED REPORT Exam: Resting ECG HR:95 bpm ECG Measurements Heart Rate 95 AXES NH 138 P 70 QRSd 108 QRS 0 QT 344 T 23 QTc [address] depression with no reciprocal elevation Electronically signed by : CLARA COURTNEY, 03/29/2025 22:51:59
[2025-03-29 13:41] LABS: Appearance,Urine CLEAR (Clear); Bilirubin,Urine Negative (Negative); Blood, Urine Negative (Negative); Color,Urine YELLOW (Yellow); Glucose,Urine (UA) Negative (Negative); Ketones,Urine Negative (Negative); Leukocyte Esterase,Urine Negative (Negative); Nitrate,Urine POSITIVE (Negative); PH,Urine 6.5 (5.0-8.5); Protein,Urine Negative (Negative); Specific Gravity, Urine <= 1.005 (1.005-1.030)
--- NOTE | 2025-03-29 13:41 | HMH.EDGENADL ---
Discharge Plan Disposition Patient Disposition: Home, Self-Care Condition: Fair Prescriptions Prescriptions: New nitrofurantoin monohyd/m-cryst [Macrobid] 100 mg capsule 100 mg PO BID 7 Days Qty: 14 0RF Rx Instructions: must administer with a meal/food No Action losartan 100 mg tablet 100 mg PO DAILY Qty: 90 3RF varenicline tartrate [Chantix Starting Month Box] 0.5 mg (11)- 1 mg (42) tablets,dose pack See Rx Instructions PO PER PKG DIR Qty: 53 0RF Rx Instructions: PO PER PKG DIR fluticasone propionate [Flonase Allergy Relief] 50 mcg/actuation spray,suspension 1 spray intranasal DAILY Qty: 16 2RF Rx Instructions: administer into each nostril Breztri Aerosphere 160-9-4.8 mcg/actuation HFA aerosol inhaler 2 inh inhalation BID Qty: 10.7 2RF amoxicillin 500 mg capsule 500 mg PO BID 10 Days Qty: 20 0RF methylprednisolone [Medrol (Yo)] 4 mg tablets,dose pack See Rx Instructions PO PER PKG DIR Qty: 21 0RF Rx Instructions: PO PER PKG DIR ipratropium-albuterol 0.5 mg-3 mg(2.5 mg base)/3 mL solution for nebulization 3 ml INHALATION Q6H PRN (Reason: shortness of breath or wheezing) Qty: 90 6RF spironolactone 50 mg tablet 50 mg PO DAILY Qty: 90 3RF (DME) BD Integra Syringe 3 mL 25 gauge x 1 syringe See Rx Instructions .Route Qty: 50 0RF Rx Instructions: As directed for Vitamin B12 Deficiency metoprolol succinate 25 mg tablet extended release 24 hr 25 mg PO DAILY Qty: 90 3RF atorvastatin 20 mg tablet 20 mg PO DAILY Qty: 90 3RF ergocalciferol (vitamin D2) 1,250 mcg (50,000 unit) capsule 1,250 mcg PO WEEKLY Qty: 14 3RF albuterol sulfate 90 mcg/actuation HFA aerosol inhaler See Rx Instructions .ROUTE .COMPLEX Qty: 18 2RF Dose Instruction: INHALE 2 PUFFS BY MOUTH EVERY 6 HOURS Rx Instructions: INHALE 2 PUFFS BY MOUTH EVERY 6 HOURS aspirin 81 MG tablet,delayed release (DR/EC) 81 mg PO DAILY vitamin B complex Tablet 1 tab PO DAILY doxycycline hyclate 100 mg tablet 100 mg PO BID 10 Days Qty: 20 0RF prednisone 20 mg tablet 20 mg PO BID Qty: 10 0RF furosemide 20 mg tablet 20 mg PO DAILY Qty: 10 0RF prednisone 10 mg tablet 10 mg PO DIRECTED 9 Days Qty: 21 0RF Rx Instructions: Take 4 tablets daily for 3 days, then take 2 tablets daily for 3 days, then take 1 tablet daily for 3 days, then stop. benzonatate 100 mg capsule 100 mg PO TIDP PRN (Reason: Cough) Qty: 30 0RF amoxicillin-pot clavulanate 875-125 mg Tablet 1 tab PO Q12H Qty: 20 0RF Referrals Follow up/Referrals: Kayla Pearson [Primary Care Provider] - See instructions Activity Restrictions/Add. Instructions Additional Instructions/Restrictions: Increase fluids and rest. Follow the bowel regimen that we gave you. Follow-up with PCP on Monday or Monday for follow-up. Clinical Impressions Clinical Impression: Constipation, Urinary tract infection Instructions Patient Instructions: DI for Acute Abdominal Pain Print Language Print Language: Montenegrin Discharge ED Provider: Yannick Lyles General Adult HPI <Mabel Fuller (ED), SENIOR SCIENCE CONSULTANT - Last Filed: 03/29/25 20:37> General Chief complaint: Abdominal Pain Stated complaint: Abd.pain Time Seen by Provider: 03/29/25 13:19 Mode of Arrival: Ambulatory Source of Information: Patient Description of Symptoms (Recalled from ER Triage Doc. by RN): patient states she is having lower abdominal pain and vomiting, has not had a bowel movement for 4 days History of Present Illness HPI narrative: 44-year-old female presents to the ED today for complaint of abdominal pain for the past 4 days. She was in the ER in [place] approximately 5 days ago for chest pain, hypokalemia and hypomagnesemia. These were replaced per IV. Patient says that she has not had a bowel movement for 4 days. She has given herself enemas, taken MiraLAX and had no results. She is burping but having no gas. She has been vomiting since yesterday. Patient is having abdominal pain and nausea. Related Data Home Medications ?Medication ?Instructions ?Recorded ?Confirmed aspirin 81 mg tablet,delayed 81 mg PO DAILY heart health 04/26/21 03/15/24 release vitamin B complex 1 tab PO DAILY Supplement 09/13/22 03/15/24 Previous Rx's ?Medication ?Instructions ?Recorded losartan 100 mg tablet 100 mg PO DAILY High blood 12/28/21 pressure #90 tabs ipratropium 0.5 mg-albuterol 3 mg 3 ml inhalation Q6H PRN shortness 01/12/22 (2.5 mg base)/3 mL nebulization of breath or wheezing #90 mL soln spironolactone 50 mg tablet 50 mg PO DAILY Fluid #90 tabs 09/30/22 syringe with needle, safety 3 mL #50 ea 11/09/22 25 gauge x 1 (BD Integra Syringe) metoprolol succinate 25 mg 25 mg PO DAILY Hypertension #90 01/04/23 tablet,extended release 24 hr tabs fluticasone propionate 50 1 spray intranasal DAILY #16 grams 01/19/24 mcg/actuation nasal spray,suspension (Flonase Allergy Relief) varenicline tartrate 0.5 mg (11)-1 See Rx Instructions PO PER PKG DIR 01/19/24 mg (42) tablets in a dose pack #53 tabs (Chantix Starting Month Box) atorvastatin 20 mg tablet 20 mg PO DAILY Cholesterol #90 tabs 01/22/24 ergocalciferol (vitamin D2) 1,250 1,250 mcg PO WEEKLY #14 caps 01/22/24 mcg (50,000 unit) capsule amoxicillin 500 mg capsule 500 mg PO BID 10 days #20 caps 03/15/24 budesonide 160 mcg-glycopyr 9 2 inh inhalation BID #10.7 grams 03/15/24 mcg-formot 4.8 mcg/actuation HFA inhaler (Breztri Aerosphere) methylprednisolone 4 mg tablets in See Rx Instructions PO PER PKG DIR 03/18/24 a dose pack (Medrol (Yo)) #21 tabs doxycycline hyclate 100 mg tablet 100 mg PO BID 10 days #20 tabs 05/03/24 furosemide 20 mg tablet 20 mg PO DAILY #10 tabs 05/03/24 prednisone 20 mg tablet 20 mg PO BID #10 tabs 05/03/24 albuterol sulfate 90 mcg/actuation See Rx Instructions .Route 06/28/24 aerosol inhaler .COMPLEX #18 grams amoxicillin 875 mg-potassium 1 tab PO Q12H #20 tabs 11/01/24 clavulanate 125 mg tablet benzonatate 100 mg capsule 100 mg PO TIDP PRN Cough #30 caps 11/01/24 prednisone 10 mg tablet 10 mg PO DIRECTED 9 days #21 11/01/24 tabs nitrofurantoin 100 mg PO BID 7 days #14 caps 03/29/25 monohydrate/macrocrystals 100 mg capsule (Macrobid) Allergies Allergy/AdvReac Type Severity Reaction Status Date / Time No Known Allergies Allergy Verified 05/03/24 09:37 [facility] <Mabel Fuller (ED), SENIOR SCIENCE CONSULTANT - Last Filed: 03/29/25 20:37> PFS Disclaimer: The information contained in this section may have been updated after the patient was seen, as this information can be updated by other users. Medical History (Updated 03/29/25 @ 16:02 by Mabel Fuller (ED), SENIOR SCIENCE CONSULTANT) Pneumonitis Injury of foot, left Ankle sprain and strain Pharyngitis Right otitis media Right otitis externa EBONIE (obstructive sleep apnea) Daytime somnolence Diastolic dysfunction Abnormal cardiovascular stress test Atypical angina SIRS (systemic inflammatory response syndrome) Dyspnea Family History Other No significant family history Social History Smoking Status: Current every day smoker tobacco type: cigarettes packs per day: 1 second hand exposure: No alcohol intake: current alcohol intake frequency: holidays/special occasions only substance use type: marijuana current occupational status: employed and unemployed Travel in the last 8 weeks?: None household members: spouse housing: house current occupational exposures/hazards: No caffeine: Yes Have you lived/traveled outside [place] in past 30 days?: No Contact w/someone who lives/traveled outside US past 30 days?: No Exposure to someone with infectious disease in past 14 days?: No Do you have a fever (greater than 100.4 F or 38 C)?: No Have you tested positive for COVID-19?: No Exposed to someone with COVID-19 in past 14 days?: No Do you have a sore throat?: No Do you have a cough?: No Do you have any weakness?: No Do you have any diarrhea?: No Are you experiencing any unusual bleeding?: No Do you have any muscle aches/pain?: No Do you have any abdominal pain?: No Are you experiencing loss of taste or smell?: No Other Medical History Have you received the Flu Vaccine for this season: Yes Have you received the Pneumonia Vaccine: No <Mabel Fuller (ED), SENIOR SCIENCE CONSULTANT - Last Filed: 03/29/25 20:37> ROS Obtained: Yes Systems reviewed as appropriate & no additional complaints except as documented Constitutional Constitutional: Reports as per HPI Physical Exam <Mabel Fuller (ED), SENIOR SCIENCE CONSULTANT - Last Filed: 03/29/25 20:37> General General appearance: alert and in no apparent distress Head Head exam: atraumatic and normocephalic Eye Eye exam: Present normal appearance, PERRL and EOMI ENT ENT exam: Present normal oropharynx and mucous membranes moist Neck Neck exam: Present full ROM and trachea midline Respiratory Respiratory exam: Present normal lung sounds bilaterally Cardiovascular Cardiovascular exam: Present normal rhythm, tachycardia, normal heart sounds, +S1 and +S2 Abdominal Exam Abdominal exam: Present soft, tenderness and normal bowel sounds Extremities Exam Extremities exam: Present full ROM and normal capillary refill Neurological Exam Neurological exam: Present alert, oriented X3 and normal gait Skin Skin exam: Present warm, dry and intact Medical Decision Making <Mabel Fuller (ED), SENIOR SCIENCE CONSULTANT - Last Filed: 03/29/25 20:37> Medical Records Screening: Per USPSTF and CDC recommendations, given the prevalence of disease in our region, it is our hospital?s policy to screen for HIV and viral Hepatitis for all patients aged 18 and over and those with ongoing risk factors. Christian Inquiry Pt receiving controlled substance: No Christian was queried for this patient: No Vital Signs: 03/29/25 13:24 03/29/25 13:29 03/29/25 13:30 Temperature 98.3 F Temperature Source Oral Pulse Rate 104 H 97 H Pulse Rate [Right Radial] 102 H Respiratory Rate 15 Blood Pressure 148/94 H 119/87 Blood Pressure [Left Arm] 148/94 H Blood Pressure Mean [Left Arm] 112 Blood Pressure Source [Left Arm] Automatic Cuff Blood Pressure Position [Left Arm] Sitting 02 Sat by Pulse Oximetry 95 94 L 96 Oxygen Delivery Method Room Air Room Air Room Air 03/29/25 14:00 03/29/25 14:30 03/29/25 14:45 Temperature Temperature Source Pulse Rate 92 H 93 H 92 H Pulse Rate [Right Radial] Respiratory Rate 16 15 15 Blood Pressure 128/78 125/78 Blood Pressure [Left Arm] Blood Pressure Mean [Left Arm] Blood Pressure Source [Left Arm] Blood Pressure Position [Left Arm] 02 Sat by Pulse Oximetry 93 L 93 L 93 L Oxygen Delivery Method Room Air Room Air 03/29/25 15:00 03/29/25 15:30 03/29/25 16:13 Temperature 98 F Temperature Source Pulse Rate 90 89 92 H Pulse Rate [Right Radial] Respiratory Rate 16 14 16 Blood Pressure 122/86 138/83 138/83 Blood Pressure [Left Arm] Blood Pressure Mean [Left Arm] Blood Pressure Source [Left Arm] Blood Pressure Position [Left Arm] 02 Sat by Pulse Oximetry 92 L 95 Oxygen Delivery Method Room Air Room Air Lab Data Lab Results 03/29/25 13:12: Urine HCG, Qual Negative 03/29/25 13:20: Urine Color Yellow, Urine Appearance Clear, Urine pH 6.5, Ur Specific [place] <= 1.005, Urine Protein Negative, Urine Glucose (UA) Negative, Urine Ketones Negative, Urine Blood Negative, Urine Nitrate Positive A, Urine Bilirubin Negative, Urine Urobilinogen 1.0, Ur Leukocyte Esterase Negative, Urine RBC Occasional, Urine WBC Occasional, Ur Squamous Epith Cells Occasional, Urine Bacteria Trace 03/29/25 13:32: WBC 12.7 H, RBC 4.58, Hgb 14.6, Hct 43.6, MCV 95.2, MCH 31.9 H, MCHC 33.5, RDW 14.3, Plt Count 230, MPV 11.4 H, Neut % (Auto) 44.2, Lymph % (Auto) 47.1, [place] % (Auto) 7.0, Eos % (Auto) 0.0 L, Baso % (Auto) 0.8, Neut # (Auto) 5.6, Lymph # (Auto) 6.0 H, [place] # (Auto) 0.9, Eos # (Auto) 0.0, Baso # (Auto) 0.1, Total Counted 100, Neutrophils % (Manual) 32 L, Lymphocytes % (Manual) 54 H, Atypical Lymphs % 5, Monocytes % (Manual) 7, Eosinophils % (Manual) 2, Platelet Estimate Normal, RBC Morphology Normal, Stomatocytes 1+, ESR 18, Sodium 133 L, Potassium 3.8, Chloride 102, Carbon Dioxide 28, Anion Gap 6.8, BUN 9, Creatinine 0.80, Estimated Creat Clear 146, Estimated GFR 78, Est GFR ( Amer) 94, Glucose 128 H, Lactate 1.7, Calcium 8.8, Magnesium 1.8, Total Bilirubin 1.0, AST 96 H, ALT 113 H, Alkaline Phosphatase 255 H, Troponin I < 0.01, C-Reactive Protein 38.9 H, Total Protein 7.6, Albumin 3.8, Globulin 3.8 H, Albumin/Globulin Ratio 1.0 L, Lipase 36, HCV Ab KAREN w/Rflx PCR Qn Negative, HIV Ag/Ab Combo Qual Negative 03/29/25 13:32 03/29/25 13:32 Orders (Tests/Meds): ED MEDICATIONS Discontinued Medications Generic Name Dose Route Start Last Admin Trade Name Freq PRN Reason Stop Dose Admin Diphenhydramine HCl 25 mg 03/29/25 15:29 03/29/25 15:42 Diphenhydramine 50mg/Ml Vial IV 03/29/25 15:30 25 mg ONCE ONE Administration Famotidine 20 mg 03/29/25 13:27 03/29/25 13:34 Famotidine 20mg/2ml Vial IV 03/29/25 13:28 20 mg ONCE ONE Administration Hydromorphone HCl 0.5 mg 03/29/25 15:37 03/29/25 15:42 Hydromorphone 2mg/Ml Syringe IV 03/29/25 15:38 0.5 mg ONCE ONE Administration Iopamidol 75 ml 03/29/25 14:15 03/29/25 14:16 Iopamidol-370 (76%);100ml Bottle IV 03/29/25 14:16 75 ml ONCE ONE Administration Metoclopramide HCl 10 mg 03/29/25 15:29 03/29/25 15:42 Metoclopramide Hcl 10mg/2ml Vial IVP 03/29/25 15:30 10 mg ONCE ONE Administration Morphine Sulfate 4 mg 03/29/25 13:27 03/29/25 13:35 Morphine 4mg/Ml Syringe IV 03/29/25 13:28 4 mg ONCE ONE Administration Ondansetron HCl 4 mg 03/29/25 13:27 03/29/25 13:34 Ondansetron 4mg/2ml Vial IV 03/29/25 13:28 4 mg ONCE ONE Administration Sodium Chloride 10 ml 03/29/25 14:15 03/29/25 14:16 Sodium Chloride 0.9% 10ml Syr (Rad Only) IV 03/29/25 14:16 10 ml ONCE ONE Administration ORDERS Category Date Time Status CT abdomen pelvis w con Stat Cat Scan 03/29/25 13:28 Completed C-Reactive Protein Stat Lab 03/29/25 13:32 Completed CBC [Complete Blood Count Auto Diff] Stat Lab 03/29/25 13:32 Completed Comprehensive Metabolic Panel Stat Lab 03/29/25 13:32 Completed Erythrocyte Sedimentation Rate Stat Lab 03/29/25 13:32 Completed HIV Combo Stat Lab 03/29/25 13:32 Completed Hepatitis C Ab Qual. W/ RFX Stat Lab 03/29/25 13:32 Completed Lactic Acid Stat Lab 03/29/25 13:32 Completed Lipase Stat Lab 03/29/25 13:32 Completed Magnesium Stat Lab 03/29/25 13:32 Completed Trop I [Troponin I] Stat Lab 03/29/25 13:32 Completed UA [Urinalysis and Microscopic] Stat Lab 03/29/25 13:20 Completed Urine , HCG Qual. Stat Lab 03/29/25 13:12 Completed Urine Culture Stat Micro 03/29/25 13:20 Received Medical Decision Narrative: Insert review patient is a 44-year-old female presenting to the emergency department for evaluation of diffuse abdominal pain, vomiting since yesterday and no bowel movement for 4 days. Patient states she is not passing gas but is burping. She was at [place] ER 5 days ago and her mag and potassium were both low. Patient is hemodynamically stable and nontoxic-appearing upon arrival, afebrile. Differential diagnosis includes hyperkalemia, hypokalemia, hypomagnesia, constipation, bowel obstruction, among others. Workup will be conducted with hematologic labs, CT scan. Initial inventions include analgesics. Initial workup reviewed by me hematologic labs are remarkable for slight leukocytosis otherwise nonactionable labs. Imaging informally interpreted by me and remarkable for constipation. Please see radiology report for formal imaging read. Upon repeat evaluation patient's pain is improved <Yannick Lyles MD - Last Filed: 03/29/25 21:29> Vital Signs: 03/29/25 13:24 03/29/25 13:29 03/29/25 13:30 Temperature 98.3 F Temperature Source Oral Pulse Rate 104 H 97 H Pulse Rate [Right Radial] 102 H Respiratory Rate 15 Blood Pressure 148/94 H 119/87 Blood Pressure [Left Arm] 148/94 H Blood Pressure Mean [Left Arm] 112 Blood Pressure Source [Left Arm] Automatic Cuff Blood Pressure Position [Left Arm] Sitting 02 Sat by Pulse Oximetry 95 94 L 96 Oxygen Delivery Method Room Air Room Air Room Air 03/29/25 14:00 03/29/25 14:30 03/29/25 14:45 Temperature Temperature Source Pulse Rate 92 H 93 H 92 H Pulse Rate [Right Radial] Respiratory Rate 16 15 15 Blood Pressure 128/78 125/78 Blood Pressure [Left Arm] Blood Pressure Mean [Left Arm] Blood Pressure Source [Left Arm] Blood Pressure Position [Left Arm] 02 Sat by Pulse Oximetry 93 L 93 L 93 L Oxygen Delivery Method Room Air Room Air 03/29/25 15:00 03/29/25 15:30 03/29/25 16:13 Temperature 98 F Temperature Source Pulse Rate 90 89 92 H Pulse Rate [Right Radial] Respiratory Rate 16 14 16 Blood Pressure 122/86 138/83 138/83 Blood Pressure [Left Arm] Blood Pressure Mean [Left Arm] Blood Pressure Source [Left Arm] Blood Pressure Position [Left Arm] 02 Sat by Pulse Oximetry 92 L 95 Oxygen Delivery Method Room Air Room Air Lab Data Lab Results 03/29/25 13:12: Urine HCG, Qual Negative 03/29/25 13:20: Urine Color Yellow, Urine Appearance Clear, Urine pH 6.5, Ur Specific [place] <= 1.005, Urine Protein Negative, Urine Glucose (UA) Negative, Urine Ketones Negative, Urine Blood Negative, Urine Nitrate Positive A, Urine Bilirubin Negative, Urine Urobilinogen 1.0, Ur Leukocyte Esterase Negative, Urine RBC Occasional, Urine WBC Occasional, Ur Squamous Epith Cells Occasional, Urine Bacteria Trace 03/29/25 13:32: WBC 12.7 H, RBC 4.58, Hgb 14.6, Hct 43.6, MCV 95.2, MCH 31.9 H, MCHC 33.5, RDW 14.3, Plt Count 230, MPV 11.4 H, Neut % (Auto) 44.2, Lymph % (Auto) 47.1, [place] % (Auto) 7.0, Eos % (Auto) 0.0 L, Baso % (Auto) 0.8, Neut # (Auto) 5.6, Lymph # (Auto) 6.0 H, [place] # (Auto) 0.9, Eos # (Auto) 0.0, Baso # (Auto) 0.1, Total Counted 100, Neutrophils % (Manual) 32 L, Lymphocytes % (Manual) 54 H, Atypical Lymphs % 5, Monocytes % (Manual) 7, Eosinophils % (Manual) 2, Platelet Estimate Normal, RBC Morphology Normal, Stomatocytes 1+, ESR 18, Sodium 133 L, Potassium 3.8, Chloride 102, Carbon Dioxide 28, Anion Gap 6.8, BUN 9, Creatinine 0.80, Estimated Creat Clear 146, Estimated GFR 78, Est GFR ( Amer) 94, Glucose 128 H, Lactate 1.7, Calcium 8.8, Magnesium 1.8, Total Bilirubin 1.0, AST 96 H, ALT 113 H, Alkaline Phosphatase 255 H, Troponin I < 0.01, C-Reactive Protein 38.9 H, Total Protein 7.6, Albumin 3.8, Globulin 3.8 H, Albumin/Globulin Ratio 1.0 L, Lipase 36, HCV Ab KRAEN w/Rflx PCR Qn Negative, HIV Ag/Ab Combo Qual Negative Orders (Tests/Meds): ED MEDICATIONS Discontinued Medications Generic Name Dose Route Start Last Admin Trade Name Freq PRN Reason Stop Dose Admin Diphenhydramine HCl 25 mg 03/29/25 15:29 03/29/25 15:42 Diphenhydramine 50mg/Ml Vial IV 03/29/25 15:30 25 mg ONCE ONE Administration Famotidine 20 mg 03/29/25 13:27 03/29/25 13:34 Famotidine 20mg/2ml Vial IV 03/29/25 13:28 20 mg ONCE ONE Administration Hydromorphone HCl 0.5 mg 03/29/25 15:37 03/29/25 15:42 Hydromorphone 2mg/Ml Syringe IV 03/29/25 15:38 0.5 mg ONCE ONE Administration Iopamidol 75 ml 03/29/25 14:15 03/29/25 14:16 Iopamidol-370 (76%);100ml Bottle IV 03/29/25 14:16 75 ml ONCE ONE Administration Metoclopramide HCl 10 mg 03/29/25 15:29 03/29/25 15:42 Metoclopramide Hcl 10mg/2ml Vial IVP 03/29/25 15:30 10 mg ONCE ONE Administration Morphine Sulfate 4 mg 03/29/25 13:27 03/29/25 13:35 Morphine 4mg/Ml Syringe IV 03/29/25 13:28 4 mg ONCE ONE Administration Ondansetron HCl 4 mg 03/29/25 13:27 03/29/25 13:34 Ondansetron 4mg/2ml Vial IV 03/29/25 13:28 4 mg ONCE ONE Administration Sodium Chloride 10 ml 03/29/25 14:15 03/29/25 14:16 Sodium Chloride 0.9% 10ml Syr (Rad Only) IV 03/29/25 14:16 10 ml ONCE ONE Administration ORDERS Category Date Time Status CT abdomen pelvis w con Stat Cat Scan 03/29/25 13:28 Completed C-Reactive Protein Stat Lab 03/29/25 13:32 Completed CBC [Complete Blood Count Auto Diff] Stat Lab 03/29/25 13:32 Completed Comprehensive Metabolic Panel Stat Lab 03/29/25 13:32 Completed Erythrocyte Sedimentation Rate Stat Lab 03/29/25 13:32 Completed HIV Combo Stat Lab 03/29/25 13:32 Completed Hepatitis C Ab Qual. W/ RFX Stat Lab 03/29/25 13:32 Completed Lactic Acid Stat Lab 03/29/25 13:32 Completed Lipase Stat Lab 03/29/25 13:32 Completed Magnesium Stat Lab 03/29/25 13:32 Completed Trop I [Troponin I] Stat Lab 03/29/25 13:32 Completed UA [Urinalysis and Microscopic] Stat Lab 03/29/25 13:20 Completed Urine , HCG Qual. Stat Lab 03/29/25 13:12 Completed Urine Culture Stat Micro 03/29/25 13:20 Received Medical Decision Narrative: Insert review patient is a 44-year-old female presenting to the emergency department for evaluation of diffuse abdominal pain, vomiting since yesterday and no bowel movement for 4 days. Patient states she is not passing gas but is burping. She was at [place] ER 5 days ago and her mag and potassium were both low. Patient is hemodynamically stable and nontoxic-appearing upon arrival, afebrile. Differential diagnosis includes hyperkalemia, hypokalemia, hypomagnesia, constipation, bowel obstruction, among others. Workup will be conducted with hematologic labs, CT scan. Initial inventions include analgesics. Initial workup reviewed by me hematologic labs are remarkable for slight leukocytosis otherwise nonactionable labs. Imaging informally interpreted by me and remarkable for constipation. Please see radiology report for formal imaging read. Upon repeat evaluation patient's pain is improved I was consulted by the ULISES, and we discussed the complexity of the problems being addressed. I approved the treatment and management plan for this patient's care in the Emergency Department, thus performing a substantive portion of the medical decision making. Yannick Lyles MD Critical Care <Mabel Fuller (ED), SENIOR SCIENCE CONSULTANT - Last Filed: 03/29/25 20:37> Critical Care Time Critical Care Time: No
[2025-03-29 13:46] LABS: Basophils # 0.1 K/mm3 (0-0.2); Basophils % 0.8 % (0.1-2.0); Hematocrit 43.6 % (37.0-47.0); Hemoglobin 14.6 g/dL (12.2-16.2); Immature Granulocytes # 0.11 10^3uL; Immature Granulocytes % 0.9 %; Lymphocytes % 47.1 % (10-50); Mean Corpuscular HGB Conc 33.5 g/dL (31.8-35.4); Mean Corpuscular Hemoglobin 31.9 pg (27.0-31.2); Mean Corpuscular Volume 95.2 fl (81-99); Mean Platelet Volume 11.4 fl (7.4-10.4); Monocytes # 0.9 K/mm3 (0.1-1.0); Neutrophils # 5.6 K/mm3 (1.8-7.8); Neutrophils % 44.2 % (37.0-80.0); Nucleated Red Blood Cells # 0 10^3/uL; Nucleated Red Blood Cells % 0 %; Platelet Count 230 K/mm3 (142-424); Red Blood Count 4.58 M/mm3 (4.20-5.40); Red Cell Distribution Width 14.3 % (11.5-17.5); Red Cell Distribution Width-SD 50.1 fL; White Blood Count 12.7 K/mm3 (4.8-10.8)
[2025-03-29 13:54] LABS: Albumin Level 3.8 g/dl (3.5-5.0); Chloride 102 mmol/L (98-107); Potassium 3.8 mmoL/L (3.5-5.1); Sodium 133 mmol/L (136-145)
[2025-03-29 13:55] LABS: Bacteria,Urine Trace /lpf; RBC,Urine Occasional #/hpf (0-3); Squamous Epithelial Cell,Urine Occasional #/hpf (0-5); WBC,Urine Occasional #/hpf (0-3)
[2025-03-29 13:56] LABS: Urine Pregnancy, HCG Qual. Negative (Negative)
[2025-03-29 13:57] LABS: Alanine Aminotransferase 113 U/L (12-78); Alkaline Phosphatase 255 U/L (38-126); Anion Gap 6.8 mEq/L (5-15); Aspartate Amino Transferase 96 U/L (14-36); Blood Urea Nitrogen 9 mg/dl (7-17); Calcium 8.8 mg/dl (8.4-10.2); Carbon Dioxide 28 mmol/L (22.0-30.0); Creatinine Clearance Estimated 146 mL/min (50-200); Estimated Glomerular Filt Rate 78 ml/min (>60); GFR (African American) 94 ML/MIN (>60); Globulin 3.8 g/dL (1.3-3.2); Glucose 128 mg/dl (74-100); Lipase 36 U/L (23-300); Magnesium 1.8 mg/dl (1.6-2.3); Total Protein,Serum 7.6 g/dl (6.3-8.2)
[2025-03-29 14:02] LABS: C-Reactive Protein 38.9 mg/L (0-4)
[2025-03-29 14:08] LABS: MANUAL DIFFERENTIAL MANUAL DIFFERENTIAL (MANUAL DIFF)
[2025-03-29 14:15] LABS: Troponin I < 0.01 ng/ml (0.00-0.034)
[2025-03-29] MEDS: SODIUM CHLORIDE 0.9% 10ML SYR (RAD ONLY) 10 ML IV (14:16)
[2025-03-29] MEDS: IOPAMIDOL-370 (76%);100ML BOTTLE 75 ML IV (14:16)
[2025-03-29 14:17] LABS: Lactic Acid 1.7 mmol/L (0.7-2.1)
[2025-03-29 14:37] LABS: Erythrocyte Sedimentation Rate 18 mm/hr (0-20)
[2025-03-29 15:16] LABS: Atypical Lymphocytes % 5; Eosinophils % 2 % (0-3); Lymphocytes % 54 % (10-50); Monocytes % 7 % (2-9); Neutrophils % 32 % (42-76); Platelet Estimate Normal; RBC Morphology Normal; Stomatocytes 1+; Total Cells Counted 100
[2025-03-29 15:30] LABS: HIV Combo NEGATIVE (Negative)
[2025-03-29 15:38] LABS: Hepatitis C Ab Qual. W/ RFX NEGATIVE (Negative)
[2025-03-29] MEDS: HYDROMORPHONE 2MG/ML SYRINGE 0.5 MG IV (15:42)
[2025-03-29] MEDS: diphenhydrAMINE 50MG/ML VIAL 25 MG IV (15:42)
[2025-03-29] MEDS: METOCLOPRAMIDE HCL 10MG/2ML VIAL 10 MG IVP (15:42)
--- NOTE | 2025-04-02 11:03 | PC.NURSE ---
urine culture complete, suggests contamination. ntd
== END 2025-03-29 16:14 | disposition home or self-care (01) ==
PROVIDERS: Nurse Practitioner; Student in an Organized Health Care Education/Training Program; Emergency Provider Emergency Medicine; PCP Nurse Practitioner Family
DX: R10.30 Lower abdominal pain, unspecified (principal); N39.0 Urinary tract infection, site not specified; R11.2 Nausea with vomiting, unspecified; K59.00 Constipation, unspecified; Z11.59 Encounter for screening for other viral diseases; Z11.4 Encounter for screening for human immunodeficiency virus [HIV]
CPT/HCPCS: 74177; 80053; 81001; 81025; 83605; 83690; 83735; 84484; 85007; 85025; 85027; 85651; 86140; 86803; 87086; 87389; 93005; 96374; 96375; 99285; J1171; J1200; J2270; J2405; J2765; Q9967